=== PATIENT | male | born 1975 | race Caucasian/White ===

== ENCOUNTER → 2020-01-25 15:48 | Outpatient (BNVA) | payer OTHER, SELFPAY | PROVIDERS: Visit Provider Registered Nurse | DX: Z11.59 Encounter for screening for other viral diseases (principal); Z20.828 Contact with and (suspected) exposure to other viral communicable diseases; J06.9 Acute upper respiratory infection, unspecified | CPT/HCPCS: 87635 ==

== ENCOUNTER → 2020-03-24 08:38 | Outpatient (BNVA) | payer OTHER, SELFPAY | PROVIDERS: Visit Provider Registered Nurse | DX: I10 Essential (primary) hypertension (principal); R73.9 Hyperglycemia, unspecified | CPT/HCPCS: 36416; 80053; 80061; 82962; 83036; 85025 ==

== ENCOUNTER → 2020-08-03 14:52 | Outpatient (BNVA) | payer OTHER, SELFPAY | PROVIDERS: PCP Registered Nurse; Referring Provider Registered Nurse; Visit Provider Orthopaedic Surgery | DX: M25.521 Pain in right elbow (principal) | CPT/HCPCS: 73080 ==

== ENCOUNTER → 2020-12-16 08:55 | Outpatient (BNVA) | payer OTHER, SELFPAY | PROVIDERS: PCP Registered Nurse; Visit Provider Registered Nurse | DX: L08.9 Local infection of the skin and subcutaneous tissue, unspecified (principal); S91.114D Laceration without foreign body of right lesser toe(s) without damage to nail, subsequent encounter; Z23 Encounter for immunization; I10 Essential (primary) hypertension | CPT/HCPCS: 80053; 85025 ==

== ENCOUNTER → 2021-05-09 14:27 | Outpatient (BNVA) | payer OTHER, SELFPAY | PROVIDERS: PCP Registered Nurse; Visit Provider Registered Nurse | DX: R10.9 Unspecified abdominal pain (principal); R11.2 Nausea with vomiting, unspecified; R19.7 Diarrhea, unspecified | CPT/HCPCS: 85025; 86140 ==

== ENCOUNTER 2021-05-10 12:55 | Outpatient (CLI) | payer OTHER, SELFPAY ==
--- NOTE | 2021-05-10 13:30 | CT_ITS ---
WS: [id number] CT ABDOMEN WITHOUT CONTRAST HISTORY: K57.92 - Diverticulitis of intestine, part unspecified, w... Contiguous single phase 5 mm axial imaging performed to the abdomen. Oral contrast has been provided. Coronal and sagittal reformats are submitted. All CT scans at [facility] use at least one of these dose optimization techniques: automated exposure control; mA and/or kV adjustment per patient size (includes targeted exams where dose is matched to clinical indication); or iterative reconstruct ion. CONTRAST: None DLP: 915.55 mGy.cm COMPARISON: None available. Lower thorax: Benign granuloma RIGHT lower lobe. Heart size is normal. Small hiatal hernia. Liver: Liver is top normal size. Diffuse attenuation throughout the liver from chronic steatosis. The re is an area of increased density adjacent to the gallbladder fossa which may be sparing. No bile du ct dilatation. Gallbladder: Normal. Pancreas: Normal. Spleen: Normal. Adrenals: Normal. Right kidney: Normal. Left kidney: Normal. Aorta: Normal. GI tract: As visualized the GI tract is negative through the abdomen. The pelvis was not included on this examination as only the abdomen was ordered. The sigmoid colon is not included. In the visualize d colon no significant diverticular disease is identified. The small bowel loops visualized are demarcus l caliber. Stomach is nondistended. No adenopathy or free fluid. Abdominal wall: Small fat-containing umbilical hernia. Visualized osseous structures: Unremarkable. CT/CT abdomen wo con [id number] IMPRESSION: 1. No acute abdomen findings. This examination only included the abdomen as or dered. 2. Hepatic steatosis with focal area of sparing adjacent to the gallbladder. 3. Small fat-containing umbilical hernia. 4. The visualized GI tract in the abdomen is negative.
== END 2021-05-10 12:56 | disposition home or self-care (01) ==
LOC: RAD 12:57
PROVIDERS: PCP Registered Nurse; Visit Provider Registered Nurse
DX: K57.92 Diverticulitis of intestine, part unspecified, without perforation or abscess without bleeding (principal); K76.0 Fatty (change of) liver, not elsewhere classified; K42.9 Umbilical hernia without obstruction or gangrene
CPT/HCPCS: 74150

== ENCOUNTER → 2021-09-29 08:21 | Outpatient (BNVA) | payer OTHER, SELFPAY | PROVIDERS: PCP Registered Nurse; Visit Provider Registered Nurse | DX: N61.1 Abscess of the breast and nipple (principal); R53.83 Other fatigue | CPT/HCPCS: 84402; 84403 ==

== ENCOUNTER 2021-10-13 10:50 | Outpatient (CLI) | payer OTHER, SELFPAY ==
--- NOTE | 2021-10-13 10:58 | US_ITS ---
WS: [id number] ULTRASOUND LEFT BREAST HISTORY: N61.1 - Abscess of the breast and nipple COMPARISON: None available. TECHNIQUE: 2-D and Doppler. Hypoechoic mass just posterior to the nipple with increased vascularity and then direct extensions. M ass measures 2.2 x 1.3 cm. No abscess or focal collection. US/US breast LT limited* [id number] IMPRESSION: BI-RADS: 2-Benign FOLLOW-UP: See Report Mass posterior to the LEFT nipple is most consistent and typical for gynecomast ia. Clinically if there is additional concern surgical evaluation or biopsy can be performed.
== END 2021-10-13 10:51 | disposition home or self-care (01) ==
PROVIDERS: PCP Registered Nurse; Visit Provider Registered Nurse
DX: N61.1 Abscess of the breast and nipple (principal)
CPT/HCPCS: 76642

== ENCOUNTER 2022-03-06 11:29 | Outpatient (CLI) | payer OTHER, SELFPAY ==
--- NOTE | 2022-03-06 11:37 | XR_ITS ---
WS: [id number] Exam: XR lumbar spine 2-3V* [id number] Date/Time of Exam: 03/06/2022 11:43 AM Reason For Exam: M51.36 - Other intervertebral disc degeneration, lumbar r... No fracture or dislocation. Degenerative disc narrowing at L5-S1. Facet DJD at L4-5 and L5-S1. Mild s pondylosis. XR/XR lumbar spine 2-3V* [id number] IMPRESSION: 1. No fracture or malalignment. 2. Degenerative disc changes at L5-S1.
== END 2022-03-06 11:30 | disposition home or self-care (01) ==
LOC: RAD 11:32
PROVIDERS: PCP Registered Nurse; Visit Provider Registered Nurse
DX: M51.36 Other intervertebral disc degeneration, lumbar region (principal)
CPT/HCPCS: 72100

== ENCOUNTER 2022-03-14 13:19 | Outpatient (CLI) | payer OTHER, SELFPAY ==
--- NOTE | 2022-03-14 14:00 | MR_ITS ---
WS: [id number] MRI LUMBAR SPINE NONCONTRAST TECHNIQUE: Sagittal T1, T2 and STIR imaging. Axial T1 and T2 imaging. CLINICAL INFORMATION: M51.36 - Other intervertebral disc degeneration, lumbar r... COMPARISON: None. FINDINGS: Mild lumbar curve. No acute compression. No high-grade central canal stenosis. Tapering of the thecal sac at the L4-L5 level extending distally. Prominent epidural fat in the distal spinal canal. L1-L2: Mild facet arthropathy. Spinal canal and foramen are patent. L2-L3: No significant disc bulging. Mild facet arthropathy. Spinal canal and foramen are patent. L3-L4: Mild annular bulging. Mild facet arthropathy. Spinal canal and foramen are patent. L4-L5: Mild disc bulging with a tiny shallow central protrusion. Slight effacement of the ventral the carole sac. Narrowing of the subarticular recess bilaterally. Mild facet arthropathy. No significant for aminal narrowing. L5-S1: Mild disc bulging with slight effacement of the ventral thecal sac. Mild facet arthropathy. Sp inal canal and foramen are patent. Visualized pelvic bony structures: Normal. Paravertebral soft tissues: Normal. MR/MR lumbar spine wo con* [id number] IMPRESSION: 1. Mild lumbar curve. No acute compression. 2. Tapering of the thecal sac at the L4-L5 level extending distally with promi nent circumferential epidural fat narrowing the thecal sac. 3. Mild annular bulging L4-L5 with a tiny shallow central protrusion and sligh t contact of the traversing L5 nerve roots. 4. Mild facet arthropathy L3-L4 and L4-L5. 5. No other acute findings.
== END 2022-03-14 13:20 | disposition home or self-care (01) ==
PROVIDERS: PCP Registered Nurse; Visit Provider Registered Nurse
DX: M51.36 Other intervertebral disc degeneration, lumbar region (principal); M51.26 Other intervertebral disc displacement, lumbar region; M47.816 Spondylosis without myelopathy or radiculopathy, lumbar region
CPT/HCPCS: 72148

== ENCOUNTER 2023-02-11 20:18 | Inpatient (IN) | payer MEDICAID, SELFPAY ==
[2023-02-11] VITALS (10 sets, daily range): BP systolic 117–133; BP diastolic 47–76; PULSE 96–105; RESP 12–25; TEMP 36.7; O2SAT 75–98; BMI 31.4
--- NOTE | 2023-02-11 20:27 | XRR_ITS ---
PROCEDURE INFORMATION: Exam: XR Left Hip Exam date and time: 02/11/2023 8:36 PM Age: 47 years old Clinical indication: Injury or trauma; Fall TECHNIQUE: Imaging protocol: Radiologic exam of the left hip. Views: 2 or 3 views hip with pelvis when performed. COMPARISON: No relevant prior studies available. FINDINGS: Bones/joints: Nondisplaced subcapital fracture of the left femoral neck. There is possible extension of the fracture distally into the mid left femoral neck. Moderate osteophytes at the right and left acetabula. No dislocation. Normal bone mineralization. Soft tissues: No soft tissue swelling. No radiopaque foreign body. Vasculature: Multiple calcifications in the pelvis most likely representing calcified phleboliths. XR/XR hip LT 2-3V wo/w pel* [id number] IMPRESSION: 1. Nondisplaced subcapital fracture of the left femoral neck. There is possible extension of the fracture distally into the mid left femoral neck. 2. Incidental/nonacute findings are listed in the report.
--- NOTE | 2023-02-11 20:29 | ED_ITS ---
HPI - Fall General: Chief Complaint: Extremity Injury, Lower Stated Complaint: FALL Time Seen by Provider: 02/11/23 20:23 Source: patient Mode of arrival: ambulatory Limitations: no limitations History of Present Illness: 47-year-old male states he is got a history of low back pain he states had some increased back pain over the last 4 to 5 days but he states he had 2 falls yesterday and then had another fall today where he landed on his hip he states that when he fell today he has had much worsening hip pain. States he did ambulate for a little bit after he fell but then its worsened. Rates pain a 7 out of 10 denies any other injuries Associated symptoms-after fall: Denies abdominal pain, chest pain, headache(s) or neck pain Review of Systems Const: Denies: fever(s), chills, body aches or change in appetite ENMT: Denies: throat pain or dental pain Card: Denies: chest pain Resp: Denies: dyspnea GI: Denies: abdominal pain, nausea, vomiting or diarrhea Musc: Reports: extremity pain; Denies: neck pain or back pain Skin/Breast: Denies: rash Neuro: Denies: headache(s) PFSH ED PFSH: Medical History Depression Family History Grandfather CAD (coronary artery disease) Father Cancer Lung disease copd Sister Lung disease asthma Denies family history of Diabetes Chronic kidney disease (CKD) Hypertension Stroke Social History Smoking and tobacco/nicotine status: current some day tobacco/nicotine user Alcohol intake: current Alcohol intake frequency: few times a month Alcohol type: beer Substance/Drug Use: never Lives independently: No Household members: spouse Marital status: Current occupational status: employed Sexually active: Yes Do you think of yourself as: Straight/Heterosexual Current gender identity: Male Physical Exam Const: COMMON NORMALS: no acute distress, patient oriented x3 and healthy appearing HENMT: COMMON NORMALS: normocephalic and atraumatic HEAD & SCALP: normocephalic and atraumatic Neck/C-Spine: COMMON NORMALS: full ROM and supple Chest: COMMONS NORMALS: normal inspection of the chest Resp: COMMON NORMALS: normal respiratory effort Cardio: COMMON NORMALS: regular rate, regular rhythm and No murmurs present (Cardio) RATE: regular rate RHYTHM: regular rhythm Extremity: COMMON NORMALS: normal to inspection NARRATIVE EXTREMITY EXAM: Tenderness to left hip has some pain with range of motion Neuro: COMMON NORMALS: patient oriented x3, moves all extremities and no focal motor deficits Psych: COMMON NORMALS: mental status grossly normal, Normal thought process p resent and cooperative THOUGHT PROCESS: Normal thought process present Skin: COMMON NORMALS: no rashes or lesions noted and no wounds GENERAL SKIN EXAM: no rashes or lesions noted Course Vital Signs: Vital signs: Vital Signs Temperature 98.0 F 02/11/23 20:32 Pulse Rate 103 H 02/11/23 21:35 Respiratory Rate 25 H 02/11/23 21:35 Blood Pressure 133/47 02/11/23 21:35 Pulse Oximetry 96 02/11/23 21:35 Oxygen Delivery Me thod Room Air 02/11/23 21:35 MDM - Fall Medical Decision Making Patient presents with left hip fracture after a fall I spoke to hospitalist along orthopedics and will admit this time Medical Records I reviewed the patient's medical records. Lab Data I reviewed the patient's lab results. 02/11/23 21:35 02/11/23 21:35 Radiology Impressions Hip/Pelvis X-Ray 02/11/23 20:27 IMPRESSION: 1. Nondisplaced subcapital fracture of the left femoral neck. There is possible extension of the fracture distally into the mid left femoral neck. 2. Incidental/nonacute findings are listed in the report. Lumbar Spine X-Ray 02/11/23 20:31 IMPRESSION: 1. Image artifact on the lateral images limits evaluation. There is otherwise no evidence for acute fracture in the lumbar spine. No acute fracture. CT scan of the lumbar spine would be recommended if clinical concern for fracture persists. 2. Stable multilevel degenerative changes of varying severity in the visualized spine. 3. Incidental/nonacute findings are listed in the report. Hip CT 02/11/23 20:47 IMPRESSION: 1. There is a nondisplaced subcapital fracture of the left femoral neck at the superior femoral head/neck junction (series 6, images 76-83). 2. Small/moderate left hip joint effusion. 3. Diffuse, mild bladder wall thickening . In the correct clinical setting, this may suggest cystitis. Recommend correlation with laboratory findings. Alternatively, this may be secondary to chronic outlet obstruction. 4. Incidental/nonacute findings are listed in the report. All radiology interpretation(s) finalized by discharge Discharge Plan Discharge Patient Disposition: Admitted As Inpatient Clinical Impression: Fracture of hip Qualifiers: Encounter type: initial encounter Fracture type: closed Laterality: left Qualified Code(s): S72.002A - Fracture of unspecified part of neck of left femur, initial encounter for closed fracture Condition: Stable Coding Level of Care Code ED Proof Plate Maker for Maryam Emmanuel
--- NOTE | 2023-02-11 20:31 | XRR_ITS ---
PROCEDURE INFORMATION: Exam: XR Lumbosacral Spine Exam date and time: 02/11/2023 8:45 PM Age: 47 years old Clinical indication: Injury or trauma; Fall; Blunt trauma (contusions or hematomas) TECHNIQUE: Imaging protocol: Radiologic exam of the lumbosacral spine. Views: 2 or 3 views. COMPARISON: MR lumbar spine wo con* [id number] 03/14/2022 2:06 PM FINDINGS: Bones/joints: Vertebral body height is maintained. No subluxation. Normal bone mineralization. Stable multilevel degenerative changes of varying severity in the visualized spine. The right and left sacroiliac joints are unremarkable. Image artifact on the lateral images limits evaluation. There is otherwise no evidence for acute fracture in the lumbar spine. Soft tissues: No paravertebral soft tissue abnormality. No radiopaque foreign body. XR/XR lumbar spine 2-3V* [id number] IMPRESSION: 1. Image artifact on the lateral images limits evaluation. There is otherwise no evidence for acute fracture in the lumbar spine. No acute fracture. CT scan of the lumbar spine would be recommended if clinical concern for fracture persists. 2. Stable multilevel degenerative changes of varying severity in the visualized spine. 3. Incidental/nonacute findings are listed in the report.
--- NOTE | 2023-02-11 20:47 | CTR_ITS ---
PROCEDURE INFORMATION: Exam: CT Left Lower Extremity Without Contrast, Hip Exam date and time: 02/11/2023 9:01 PM Age: 47 years old Clinical indication: Injury or trauma; Fall; Blunt trauma; Hip; Left TECHNIQUE: Imaging protocol: CT of the left lower extremity without contrast was performed. Exam focused on the hip. Sagittal and coronal reformatted images were created and reviewed. Radiation optimization: All CT scans at this facility use at least one of these dose optimization techniques: automated exposure control; mA and/or kV adjustment per patient size (includes targeted exams where dose is matched to clinical indication); or iterative reconstruction. REPORTING DATA: Count of CT and Cardiac NM exams in prior 12 months: This patient has received 0 known CTs and 0 known cardiac nuclear medicine studies in the 12 months prior to the current study. COMPARISON: CR (PELVIS, ) 02/11/2023 8:36 PM RADIATION DOSE METRICS: Total DLP (mGy-cm): 841.75 FINDINGS: Bones/joints: Moderate osteophytes at the left acetabulum. No dislocation. Normal bone mineralization. There is a nondisplaced subcapital fracture of the left femoral neck at the superior femoral head/neck junction (series 6, images 76-83). There are cystic changes along the superior proximal and mid left femoral neck. Small/moderate left hip joint effusion. Soft tissues: No soft tissue swelling. No radiopaque foreign body. No radiopaque foreign body. Urinary bladder: Diffuse, mild bladder wall thickening . Reproductive: Small bilateral hydroceles. Bilateral testes are unremarkable as visualized. The prostate gland is unremarkable. CT/CT hip LT wo con* [id number] IMPRESSION: 1. There is a nondisplaced subcapital fracture of the left femoral neck at the superior femoral head/neck junction (series 6, images 76-83). 2. Small/moderate left hip joint effusion. 3. Diffuse, mild bladder wall thickening . In the correct clinical setting, this may suggest cystitis. Recommend correlation with laboratory findings. Alternatively, this may be secondary to chronic outlet obstruction. 4. Incidental/nonacute findings are listed in the report.
--- NOTE | 2023-02-11 21:19 | XRR_ITS ---
PROCEDURE INFORMATION: Exam: XR Chest Exam date and time: 02/11/2023 9:23 PM Age: 47 years old Clinical indication: Injury or trauma; Fall; Blunt trauma (contusions or hematomas); Additional info: Cp TECHNIQUE: Imaging protocol: Radiologic exam of the chest. Views: 1 view. COMPARISON: CT angio chest PE protcl [id number] 02/21/2018 10:56 AM FINDINGS: Lungs: Unremarkable. No consolidation. Pleural spaces: Unremarkable. No pleural effusion. No pneumothorax. Heart/Mediastinum: Unremarkable. No cardiomegaly. Bones/joints: Old left rib fractures. No acute fracture. XR/XR chest 1V portable [id number] IMPRESSION: No acute findings.
[2023-02-11] MEDS: HYDROmorphone 1 mg/mL INJ 1 mL IVP ×2 (21:33→22:23)
--- NOTE | 2023-02-11 21:35 | ECG_ITS ---
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 Measurements Intervals [place] Rate: 100 P: 42 OR: 156 QRS: 70 QRSD: 79 T: 53 QT: 327 QTc: 423 Interpretive Statements SINUS TACHYCARDIA ABNORMAL RHYTHM ECG Compared to ECG 02/21/2018 10:02:16 Heart rate has increased Electronically Signed On 02-12-2023 16:58:06 AUDIOLOGY ASSISTANT by Denise Hendrix M.D. [email or web address] specialty [email or web address] of [email or web address] [email or web address] [id number]
[2023-02-11 21:48] LABS: Basophils # 0.1 10^3/uL (0.0-0.1); Basophils % 0.7 %; Eosinophils # 0.1 10^3/uL (0.0-0.8); Hematocrit 36.6 % (37-53); Lymphocytes # 1.2 10^3/uL (0.8-4.8); Mean Corpuscular HGB Conc 32.5 g/dL (30-55); Mean Corpuscular Hemoglobin 32.8 pg (27-33); Mean Corpuscular Volume 100.8 fl (82-101); Mean Platelet Volume 9.4 fL (7.4-10.4); Monocytes # 1.1 10^3/uL (0.2-0.9); Monocytes % 8.8 %; Neutrophils # 9.44 10^3/uL (1.8-7.7); Neutrophils % 78.8 %; Nucleated Red Blood Cells % 0 %; Platelet Count 186 10^3/cmm (157-399); Red Blood Count 3.63 10^6/uL (3.85-5.65); Red Cell Distribution Width 11.9 % (12.1-15.1); White Blood Count 11.97 10^3/uL (3.29-11.43)
[2023-02-11 22:03] LABS: Alanine Aminotransferase 68 U/L (0-41); Alkaline Phosphatase 83 U/L (40-130); Aspartate Amino Transferase 61 U/L (0-40); Blood Urea Nitrogen 17 mg/dL (6-20); Calcium 8.7 mg/dL (8.5-10.5); Carbon Dioxide 22 mmol/L (22-29); Chloride 101 mmol/L (98-107); Globulin 2.7 g/dL (1.3-4.6); Glomerular Filtration Rate 64.6 mL/min (90-130); Glucose 127 mg/dL (65-115); Osmolality Calculated 283 mOsm/kg (285-295); Sodium 135 mmol/L (136-145); Total Bilirubin 0.2 mg/dL (0.15-1.2); Total Protein 6.7 g/dL (6.6-8.7)
[2023-02-11 22:05] LABS: INR 0.99 (0.8-1.2)
[2023-02-11 22:21] LABS: Anion Gap 16.5 (5-19); Potassium 4.5 mmol/L (3.5-5.1)
--- NOTE | 2023-02-11 22:26 | PC.NURSE ---
Addendum entered by Leyda Pan RN 02/11/23 22:28: pt currently 96% on 2L NC, Dr. Jewell notified. Original Note: pts oxygen saturation at 78%-80%, applied 2L NC. per pt and pts family pts oxygen sat drops when he sleeps. denies sleep apnea
--- NOTE | 2023-02-11 22:32 | PC.NURSE ---
informed Dr. Jewell of pts oxygen sat of 75%-77% on 3L NC. per Dr. Jewell to call respiratory. this nurse informed respiratory of pt status and for Dr. Jewell's request for biPAP or cPAP
--- NOTE | 2023-02-11 22:37 | PC.NURSE ---
pt oxygen saturation increases when awake, pt currently 96% on 3L NC, awake and alert at this time.
[2023-02-12] VITALS (28 sets, daily range): BP systolic 104–144; BP diastolic 64–99; PULSE 72–99; RESP 10–22; TEMP 36.1–37.2; O2SAT 90–98; BMI 33.7
--- NOTE | 2023-02-12 | XR_ITS ---
WS: [id number] Left hip, C-arm fluoroscopy views, 02/12/2023 Clinical Data: [facility] Comparison: Pelvis and left hip, 02/11/2023 Findings: There are are 3 orthopedic pins reducing an undisplaced left hip subcapital fracture. Impression: Internal fixation of left hip subcapital fracture
--- NOTE | 2023-02-12 00:53 | PM.HP ---
Providers/Chief Complaint Admitting Physician: Altagracia Oscar MD Primary Care Provider: KAREN Sloan Chief Complaint: FALL History of Present Illness Bernardo Lyon is a 47 year old male who presents to the hospital after sustaining multiple falls at home. Patient has had 3 falls in the last 24 hours in the ER he has been diagnosed with left femoral neck fracture Patient is stating thathe has been suffering with sciatica which has been bothering him, he fell yesterday after stepping on a toy, second time his daughter who is 4 years old was having seizure he sprinted towards his daughter but stepped on toy again and fell on the floor, today slipped again after stepping on smudged carrots on the floor. Denies syncope, sezure or chest pain, no sign sof uti Review of Systems Const: Denies: fever(s) Eyes: Denies: change in vision ENMT: Denies: throat pain Card: Denies: chest pain Resp: Denies: dyspnea GI: Denies: abdominal pain : Denies: flank pain Musc: Reports: joint pain; Denies: neck pain Medications/Allergies Home Medications Medication Instructions Recorded Confirmed Last Taken Type albuterol sulfate 90 mcg/actuation 2 puff inhalation Q6H PRN 01/25/20 11/26/22 Unknown Rx aerosol inhaler (ProAir HFA) bronchospasm #6.7 grams dicyclomine 10 mg capsule See Rx Instructions .Route 09/26/21 11/26/22 Unknown Rx .COMPLEX #60 caps amlodipine 2.5 mg tablet 2.5 mg PO DAILY 90 days #90 tabs 11/26/22 11/26/22 Unknown Rx fluoxetine 20 mg capsule 20 mg PO DAILY 90 days #90 caps 11/26/22 11/26/22 Unknown Rx losartan 100 mg tablet 100 mg PO DAILY 90 days #90 tabs 11/26/22 11/26/22 Unknown Rx Allergies Allergy/AdvReac Type Severity Reaction Status Date / Time codeine Allergy Severe shortness Verified 02/11/23 20:39 of breath avocado Allergy Unknown Verified 02/11/23 20:39 banana Allergy Unknown Verified 02/11/23 20:39 PFSH Acute PFSH: Medical History Depression HTN (hypertension) Family History Grandfather CAD (coronary artery disease) Father Cancer Lung disease copd Sister Lung disease asthma Denies family history of Diabetes Chronic kidney disease (CKD) Hypertension Stroke Social History Smoking and tobacco/nicotine status: current some day tobacco/nicotine user Alcohol intake: current Alcohol intake frequency: few times a month Alcohol type: beer Substance/Drug Use: never Lives independently: No Household members: spouse Marital status: Current occupational status: employed Sexually active: Yes Do you think of yourself as: Straight/Heterosexual Current gender identity: Male Vitals/I&O/Wt Last Vital Signs Temp 98.0 F 02/11/23 20:32 Pulse 99 02/12/23 00:23 Resp 20 H 02/12/23 00:23 BP 104/64 02/12/23 00:23 Pulse Ox 94 02/12/23 00:23 O2 Del Method Nasal Cannula 02/11/23 22:36 O2 Flow Rate 4 02/11/23 22:49 Weight last 48 hrs Weight 102.058 kg Physical Exam Narrative: Pleasant and cooperative Blood pressure stable Abdomen soft Pleasant and cooperative GCS 15 Anxious appearing S1, S2 Nonfocal neuro exam Data 02/11/23 21:35 02/11/23 21:35 A&P Assessment and plan (1) Fracture of hip: Qualifiers: Encounter type: initial encounter Fracture type: closed Laterality: left Qualified Code(s): S72.002A - Fracture of unspecified part of neck of left femur, initial encounter for closed fracture (2) Depression: Qualifiers: Depression Type: major depressive disorder Major depression recurrence: recurrent Active/Remission status: currently active Major depression episode severity: moderate Qualified Code(s): F33.1 - Major depressive disorder, recurrent, moderate Plan Left hip fracture N.p.o. Dr. Murdock consulted Opioids along bowel regimen Continue normal saline SCDs for DVT prophylaxis Full code Check B12 and TSH Physical therapy after intervention Hold amlodipine continue IV fluids blood pressure stable Cystitis give ceftriaxone no sign of sepsis Attestations Medical Necessity Statement*: More than 2 midnights anticipated for management of hip fracture Diagnoses Fracture of hip S72.002A Encounter type: initial encounter Fracture type: closed Laterality: left Depression F33.1 Depression Type: major depressive disorder Major depression recurrence: recurrent Active/Remission status: currently active Major depression episode severity: moderate
[2023-02-12] MEDS: HYDROmorphone 1 mg/mL INJ 1 mL IVP (01:06)
[2023-02-12 01:55] LABS: Basophils # 0.1 10^3/uL (0.0-0.1); Basophils % 0.7 %; Eosinophils # 0.1 10^3/uL (0.0-0.8); Eosinophils % 0.9 %; Hematocrit 36.6 % (37-53); Lymphocytes # 1.9 10^3/uL (0.8-4.8); Lymphocytes % 16.8 %; Mean Corpuscular HGB Conc 32.5 g/dL (30-55); Mean Corpuscular Volume 101.4 fl (82-101); Mean Platelet Volume 9.7 fL (7.4-10.4); Monocytes # 1.1 10^3/uL (0.2-0.9); Monocytes % 9.2 %; Neutrophils # 8.19 10^3/uL (1.8-7.7); Neutrophils % 71.8 %; Nucleated Red Blood Cells % 0 %; Platelet Count 203 10^3/cmm (157-399); Red Blood Count 3.61 10^6/uL (3.85-5.65); Red Cell Distribution Width 11.9 % (12.1-15.1)
[2023-02-12 01:56] LABS: Add Urine Microscopic? NO; Charge for UA Resulting for Rev
[2023-02-12 02:05] LABS: Bilirubin Urine Neg (Negative); Blood Urine Neg (Negative); Glucose Urine UA Norm (Normal); Ketones Urine Negative (Negative); Leukocyte Esterase Urine Negative (Negative); Nitrate Urine Negative (Negative); Protein Urine Neg (Negative); Specific Gravity, Urine 1.005 (1.005-1.030); Urine Appearance Clear (CLEAR); Urine Color Yellow (Yellow); Urobilinogen Urine Neg (Negative); pH Urine 7 (5-7)
[2023-02-12] MEDS: sodium chloride 0.9% 1,000 ML 75 ML IV (02:05)
[2023-02-12 02:12] LABS: Anion Gap 16.3 (5-19); Blood Urea Nitrogen 16 mg/dL (6-20); C Reactive Protein 3.7 mg/L (0.0-4.9); Calcium 8.8 mg/dL (8.5-10.5); Carbon Dioxide 19 mmol/L (22-29); Chloride 101 mmol/L (98-107); Glomerular Filtration Rate 71.4 mL/min (90-130); Glucose 117 mg/dL (65-115); Magnesium 1.9 mg/dL (1.7-2.3); Osmolality Calculated 276 mOsm/kg (285-295); Potassium 4.3 mmol/L (3.5-5.1); Sodium 132 mmol/L (136-145)
[2023-02-12 02:13] LABS: Alcohol Level 95 mg/dL (0-10)
[2023-02-12 02:27] LABS: Vitamin B12 194 pg/mL (232-1245)
[2023-02-12] MEDS: morphine IR 15 mg Tablet PO (03:56)
[2023-02-12] MEDS: cefTRIAXone 1,000 MG in sodium chloride 0.9% (plus) 50 ML 100 MG IV (08:10)
--- NOTE | 2023-02-12 10:04 | PC.CHAP ---
Pastoral Care Encounter/Spiritual Assessment Type of Contact [] Declined loader malt house visit [] Patient/Family/Request visit [] Outpatient visit [] Follow-up visit [] Physician referral [] Code/Alert [x] Routine visit [] Staff referral [] Actively dying [] Patient sleeping [] Family support [] [] Out of room [] Palliative care [] [] Receiving care in room [] Pre-surgical visit [] Trauma [] Long length of stay [] ICU visit [] Other: Relational/Emotional Strength [x] Patient feels connected with others/family/visitors/staff [] Distress [] Loneliness/isolation [] Abandonment Spirituality of Patient [x] Person of Sima [] Attends Caodaism of their Sima [x] Believes in Prayer [] Reads Bible or Episcopal materials [] There are Spiritual issues to be addressed Taker Off Drying Kiln Interventions [x] Prayer [] Active listening [] Non-anxious presence [x] Spiritual/emotional support [] Crisis/trauma care [] Spiritual counseling [] Bereavement support [] Provided bereavement packet [] Provided Bible/devotional materials [] Provided toy/stuffed animal, coloring book to patient or family member [] Provided Communion [] Anointing/[place] [] Salvation [x] Completed spiritual assessment [] Other: Impact on Illness or Injury [] Angry [] Fearful [] Anxious [] Often cries [] Exhaustion [] Unable to work [] Unable to attend pentecostalism [] Unable to walk/stand [] Unable to read [] Unable to drive [] Unable to eat/drink [] Unable to sleep [] Unable to be with family [] Patient intubated [] Other: Summary Time spent with patient 5 min
--- NOTE | 2023-02-12 11:44 | PM.CONSULT ---
Documented by User: MIGUEL Aleman 02/12/23 12:43 Providers/Reason For Consult Consulting Physician/Specialty*: MIGUEL Aleman/Dr. Jessica Murdock MD Reason for Consult*: Left hip subcapital fracture of the femoral neck, nondisplaced. Attending Physician: Caren Jimenez MD Primary Care Provider: KAREN Sloan History of Present Illness History of Present Illness Bernardo Lyon is a 47 year old male who presents to the hospital after sustaining multiple falls at home. DOI: 02/11/2023. Patient has had 3 falls in the last 24 hours while at home. He presented to the ER last night (02/11/2023) where he was diagnosed with a left femoral neck fracture and referred here. Patient is stating that he has been suffering with sciatica to the LEFT lower extremity which has been bothering him, his first fall occurred late in the evening on 02/10/2023 after stepping on a toy at home, second time his daughter who is 4 years old was having seizure he sprinted towards his daughter but stepped on toy again and fell on the floor. In the afternoon of 02/11/2023 he slipped again after stepping on smudged carrots on the floor. He had been having pain in the left hip since his first fall on the evening of 02/10/2023 but was able to continue ambulating and weight bearing. Patient states after his third and final fall in the evening of the , he squatted down to pick something up while in his shop and felt a painful pop in the hip and was unable to stand back up or put weight on the left lower extremity. Patient states that he hopped on the right leg until he was able to get back to the house. Pertinent past medical history includes: Hypertension which is well-controlled with medication. Irritable bowel syndrome. Depression. Review of Systems Const: Denies: fever(s) Eyes: Denies: change in vision ENMT: Denies: throat pain Card: Denies: chest pain, palpitations, irregular heart rhythm or edema Resp: Denies: dyspnea, productive cough or wheezing GI: Denies: abdominal pain : Denies: flank pain Musc: Reports: back pain, joint pain, joint swelling and limited range of motion; Denies: neck pain, extremity swelling, joint redness or joint warmth Medications/Allergies Home Medications Medication Instructions Recorded Confirmed Last Taken Type amlodipine 2.5 mg tablet 2.5 mg PO DAILY 90 days #90 tabs 11/26/22 02/12/23 02/11/23 Rx losartan 100 mg tablet 100 mg PO DAILY 90 days #90 tabs 11/26/22 02/12/23 02/11/23 Rx Allergies Allergy/AdvReac Type Severity Reaction Status Date / Time codeine Allergy Severe shortness Verified 02/11/23 20:39 of breath avocado Allergy Unknown Verified 02/11/23 20:39 banana Allergy Unknown Verified 02/11/23 20:39 Current Medications Generic Name Dose Route Start Last Admin Trade Name Freq PRN Reason Stop Dose Admin Ceftriaxone Sodium 1,000 mg/ 50 mls @ 100 mls/hr 02/12/23 09:00 02/12/23 09:18 Sodium Chloride IV Not Given DAILY ROSANGELA Protocol Sodium Chloride 1,000 mls @ 75 mls/hr 02/12/23 01:22 02/12/23 02:05 Sodium Chloride 0.9% IV 75 mls/hr .[id number] ROSANGELA Administration Senna/Docusate Sodium 1 tab 02/12/23 09:00 02/12/23 09:18 Sennosides-Docusate Tablet PO Not Given DAILY ROSANGELA PFSH Acute PFSH: Medical History (Updated 02/12/23 @ 12:42 by MIGUEL Aleman) Closed subcapital fracture of femur HTN (hypertension) Depression Family History Grandfather CAD (coronary artery disease) Father Cancer Lung disease copd Sister Lung disease asthma Denies family history of Diabetes Chronic kidney disease (CKD) Hypertension Stroke Social History Smoking and tobacco/nicotine status: current some day tobacco/nicotine user Alcohol intake: current Alcohol intake frequency: few times a month Alcohol type: beer Substance/Drug Use: never Lives independently: No Household members: spouse Marital status: Current occupational status: employed Sexually active: Yes Do you think of yourself as: Straight/Heterosexual Current gender identity: Male Vitals/I&O/Wt Last Vital Signs Temp 98.5 F 02/12/23 08:00 Pulse 80 02/12/23 09:12 Resp 18 02/12/23 09:12 BP 134/87 02/12/23 08:00 Pulse Ox 98 02/12/23 09:12 O2 Del Method Room Air 02/12/23 09:12 O2 Flow Rate 4 02/11/23 22:49 02/11/23 02/12/23 02/12/23 22:59 06:59 14:59 Output Total 1750 / 1750 Balance -1750 / -1750 Weight last 48 hrs Weight 242 lb Weight 225 lb Physical Exam Const: COMMON NORMALS: no acute distress, average body habitus, patient oriented x3, no limitations, alert and well nourished GENERAL APPEARANCE: cooperative; not anxious and not combative ORIENTATION/CONSCIOUSNESS: Yes awake, Yes oriented to person, Yes oriented to place and Yes oriented to time HENMT: COMMON NORMALS: normocephalic and atraumatic HEAD & SCALP: normocephalic and atraumatic Resp: COMMON NORMALS: normal respiratory effort and clear to auscultation bilaterally EFFORT & INSPECTION: Yes able to speak in complete sentences, Yes symmetric chest movement, No abnormal respiratory pattern and No tachypneic AUSCULTATION: clear to auscultation bilaterally, no crackles, no rales and no wheezes Cardio: COMMON NORMALS: regular rate, regular rhythm, S1 normal heart sound present and S2 normal heart sound present JUGULAR VENOUS DISTENTION: no JVD RATE: regular rate RHYTHM: regular rhythm HEART SOUNDS: S1 normal heart sound present, S2 normal heart sound present and no murmurs Extremity: LEFT LOWER EXTREMITY: Yes hip joint (no noted rotation of the hip. No limb length shortening. ) Left hip: Yes inspection (Light bruising to lateral hip. NO skin breakdown. ), Yes palpation (Pain to the left hip/groin. ), Yes ROM (No assessed due to known fracture. ), Yes neurovascular exam (Sensation intact to light touch. 2+ femoral, popliteal, DP and PT pulses. ) and Yes other (rapid capillry refill LE. ) and Yes lower leg (Left calf is soft, nontender. No erythema or swelling.) Neuro: COMMON NORMALS: patient oriented x3 SENSORIUM/ORIENTATION: Yes alert, Yes oriented to person, Yes oriented to place and Yes oriented to time Psych: ATTITUDE: Yes engaged Skin: COMMON NORMALS: no rashes or lesions noted, turgor normal and no jaundice NARRATIVE SKIN EXAM: No skin breakdown from falls. GENERAL SKIN EXAM: no rashes or lesions noted and turgor normal Data 02/12/23 01:42 02/12/23 01:42 Xray Ortho: Radiologist's impression: Bones/joints: Nondisplaced subcapital fracture of the left femoral neck. There is possible extension of the fracture distally into the mid left femoral neck. Moderate osteophytes at the right and left acetabula. No dislocation. Normal bone mineralization. Soft tissues: No soft tissue swelling. No radiopaque foreign body. Vasculature: Multiple calcifications in the pelvis most likely representing calcified phleboliths. XR/XR hip LT 2-3V wo/w pel* [id number] IMPRESSION: 1. Nondisplaced subcapital fracture of the left femoral neck. There is possible extension of the fracture distally into the mid left femoral neck. 2. Incidental/nonacute findings are listed in the report. A&P Assessment and plan (1) Closed subcapital fracture of femur: Qualifiers: Encounter type: initial encounter Laterality: left Qualified Code(s): S72.012A - Unspecified intracapsular fracture of left femur, initial encounter for closed fracture (2) Essential hypertension: (3) Irritable bowel syndrome with diarrhea: (4) Depression: Qualifiers: Active/Remission status: currently active Depression Type: major depressive disorder Major depression episode severity: moderate Major depression recurrence: recurrent Qualified Code(s): F33.1 - Major depressive disorder, recurrent, moderate Plan Bernardo Lyon is a 47 year old male who presents to the hospital after sustaining multiple falls at home over a 24 hour period. Bernardo was admitted to inpatient care and has been stable overnight on the [facility] floor. He does have significant pain in the left hip, which is related to the nondisplaced subcapital fracture of the left femur. With physical examination the patient is medically stable and the left leg is neurovascularly intact. No evidence of limb length discrepancies or rotational deformity. X-rays from the emergency department were discussed with the patient and his at bedside. Due to findings of nondisplaced subcapital fracture of the left femur, it is recommended that we proceed with surgical intervention for stabilization of the fracture site. We will plan to proceed with left hip open reduction internal fixation with cannulated screws today, February 12, 2023. Risks versus benefits of the surgery were discussed at length with the patient and his . Risks includes, but are not limited to wound healing complications, blood/nerve or vessel or tendon injury, failure to relieve all pain and infection. Patient verbalized understanding and would like to proceed with surgical intervention as discussed. Patient has been n.p.o. since midnight. We will plan to proceed with surgical intervention and patient will then be transferred back to the [facility] floor postoperatively. We will plan to round on patient postoperatively. Patient will need to be seen in the clinic for postoperative evaluation upon discharge. Patient and his verbalized understanding and agreement with this plan of care. Consult Attestations Medical Necessity Statement: Patient has been admitted to inpatient status due to left hip nondisplaced subcapital fracture of the femoral neck. Patient will require surgical intervention. Expect care to cross 2 midnights due to hip fracture. Coding Level of Care Code Acute Code for [facility] Diagnoses Closed subcapital fracture of left femur, initial encounter S72.012A Encounter type: initial encounter Laterality: left Essential hypertension I10 Irritable bowel syndrome with diarrhea K58.0 Moderate episode of recurrent major depressive disorder F33.1 Active/Remission status: currently active Depression Type: major depressive disorder Major depression episode severity: moderate Major depression recurrence: recurrent Documented by User: Jessica Murdock MD 02/12/23 12:59 Medications/Allergies Home Medications Medication Instructions Recorded Confirmed Last Taken Type amlodipine 2.5 mg tablet 2.5 mg PO DAILY 90 days #90 tabs 11/26/22 02/12/23 02/11/23 Rx losartan 100 mg tablet 100 mg PO DAILY 90 days #90 tabs 11/26/22 02/12/23 02/11/23 Rx Allergies Allergy/AdvReac Type Severity Reaction Status Date / Time codeine Allergy Severe shortness Verified 02/11/23 20:39 of breath avocado Allergy Unknown Verified 02/11/23 20:39 banana Allergy Unknown Verified 02/11/23 20:39 PFSH Acute PFSH: Medical History (Updated 02/12/23 @ 12:42 by MIGUEL Aleman) Closed subcapital fracture of femur HTN (hypertension) Depression Family History Grandfather CAD (coronary artery disease) Father Cancer Lung disease copd Sister Lung disease asthma Denies family history of Diabetes Chronic kidney disease (CKD) Hypertension Stroke Social History Smoking and tobacco/nicotine status: current some day tobacco/nicotine user Alcohol intake: current Alcohol intake frequency: few times a month Alcohol type: beer Substance/Drug Use: never Lives independently: No Household members: spouse Marital status: Current occupational status: employed Sexually active: Yes Do you think of yourself as: Straight/Heterosexual Current gender identity: Male Data 02/12/23 01:42 02/12/23 01:42 Xray Ortho: My impression: Nondisplaced left subcapital hip fracture best seen on AP pelvis imaging and CT scan. A&P Assessment and plan (1) Closed subcapital fracture of femur: Bernardo Lyon is a 47 year old male who presents to the hospital after sustaining multiple falls at home over a 24 hour period. Bernardo was admitted to inpatient care and has been stable overnight on the [facility] floor. He does have significant pain in the left hip, which is related to the nondisplaced subcapital fracture of the left femur. With physical examination the patient is medically stable and the left leg is neurovascularly intact. No evidence of limb length discrepancies or rotational deformity. X-rays from the emergency department were discussed with the patient and his at bedside. Due to findings of nondisplaced subcapital fracture of the left femur, it is recommended that we proceed with surgical intervention for stabilization of the fracture site. We will plan to proceed with left hip open reduction internal fixation with cannulated screws today, February 12, 2023. Risks versus benefits of the surgery were discussed at length with the patient and his . Risks includes, but are not limited to wound healing complications, blood/nerve or vessel or tendon injury, failure to relieve all pain and infection. Patient verbalized understanding and would like to proceed with surgical intervention as discussed. Patient has been n.p.o. since midnight. We will plan to proceed with surgical intervention and patient will then be transferred back to the [facility] floor postoperatively. We will plan to round on patient postoperatively. Patient will need to be seen in the clinic for postoperative evaluation upon discharge. Patient and his verbalized understanding and agreement with this plan of care. Qualifiers: Encounter type: initial encounter Laterality: left Qualified Code(s): S72.012A - Unspecified intracapsular fracture of left femur, initial encounter for closed fracture (2) Essential hypertension: (3) Irritable bowel syndrome with diarrhea: (4) Depression: Qualifiers: Active/Remission status: currently active Depression Type: major depressive disorder Major depression episode severity: moderate Major depression recurrence: recurrent Qualified Code(s): F33.1 - Major depressive disorder, recurrent, moderate Coding Level of Care Code Acute Code for [facility] Diagnoses Closed subcapital fracture of left femur, initial encounter S72.012A Encounter type: initial encounter Laterality: left Essential hypertension I10 Irritable bowel syndrome with diarrhea K58.0 Moderate episode of recurrent major depressive disorder F33.1 Active/Remission status: currently active Depression Type: major depressive disorder Major depression episode severity: moderate Major depression recurrence: recurrent
[2023-02-12] MEDS: HYDROmorphone 1 mg/mL INJ 1 mL 0.2 MG IVP (12:10)
--- NOTE | 2023-02-12 14:19 | PM.MISC ---
Miscellaneous Note Purpose of Documentation: Overnight labs and H&P reviewed. Patient awaiting surgical intervention this afternoon. Pain is currently controlled. No acute interim events.
--- NOTE | 2023-02-12 14:38 | ANES.PREANE2 ---
Pre-Anesthetic Assessment Height/Weight: Height 1.8 m Weight 109.769 kg Temp Pulse Resp BP Pulse Ox O2 Del Method O2 Flow Rate 97.9 F 81 18 125/81 95 Room Air 4 02/12/23 11:56 02/12/23 11:56 02/12/23 12:10 02/12/23 11:56 02/12/23 11:56 02/12/23 11:56 02/11/23 22:49 Operation Date: 02/12/23 15:45 Proposed Procedures p Hip Screw(Left) - Jessica Murdock MD Familial anesthetic complications: None Was Beta Jamal taken within 24 hours: N/A Was Clonidine taken within 24 hours: N/A Last intake: Intake Last Liquid Date 02/11/23 Last Liquid Time 22:00 Last Solid Date 02/11/23 Last Solid Time 11:00 Social No alcohol and No tobacco Exam alert, oriented x 3, clear to auscultation bilaterally and regular rate & rhythm Airway Mallampati: Class III Dentition: full Pulmonary chronic cough (since childhood) - postnasal drip CV/HEM Hypertension Anesthetic Plan ASA status: 2 Anesthesia: General Risk of > 500 ml blood loss (7ml/kg in children): No Medications/Allergies Home Medications Medication Instructions Recorded Confirmed Last Taken Type amlodipine 2.5 mg tablet 2.5 mg PO DAILY 90 days #90 tabs 11/26/22 02/12/23 02/11/23 Rx losartan 100 mg tablet 100 mg PO DAILY 90 days #90 tabs 11/26/22 02/12/23 02/11/23 Rx Allergies Allergy/AdvReac Type Severity Reaction Status Date / Time codeine Allergy Severe shortness Verified 02/11/23 20:39 of breath avocado Allergy Unknown Verified 02/11/23 20:39 banana Allergy Unknown Verified 02/11/23 20:39 Current Medications Generic Name Dose Route Start Last Admin Trade Name Freq PRN Reason Stop Dose Admin Hydromorphone HCl 0.2 mg 02/12/23 01:22 02/12/23 12:10 Hydromorphone 1 Mg/Ml Inj 1 Ml IVP 0.2 mg Q4H PRN Administration SEVERE PAIN Ceftriaxone Sodium 1,000 mg/ 50 mls @ 100 mls/hr 02/12/23 09:00 02/12/23 13:35 Sodium Chloride IV Infused DAILY ROSANGELA Infusion Protocol Sodium Chloride 1,000 mls @ 75 mls/hr 02/12/23 01:22 02/12/23 02:05 Sodium Chloride 0.9% IV 75 mls/hr .[id number] ROSANGELA Administration Morphine Sulfate 15 mg 02/12/23 01:22 02/12/23 03:56 Morphine Ir 15 Mg Tablet PO 15 mg Q6H PRN Administration MODERATE PAIN Senna/Docusate Sodium 1 tab 02/12/23 09:00 02/12/23 13:33 Sennosides-Docusate Tablet PO Not Given DAILY ROSANGELA PFSH Anesthesia Medical History (Updated 02/12/23 @ 12:42 by MIGUEL Aleman) Closed subcapital fracture of femur HTN (hypertension) Depression Family History Grandfather CAD (coronary artery disease) Father Cancer Lung disease copd Sister Lung disease asthma Denies family history of Diabetes Chronic kidney disease (CKD) Hypertension Stroke Social History Smoking and tobacco/nicotine status: current some day tobacco/nicotine user Alcohol intake: current Alcohol intake frequency: few times a month Alcohol type: beer Substance/Drug Use: never Lives independently: No Household members: spouse Marital status: Current occupational status: employed Sexually active: Yes Do you think of yourself as: Straight/Heterosexual Current gender identity: Male Data Anesthesia 02/12/23 01:42 02/12/23 01:42 Short CBC 02/11/23 02/12/23 Range/Units 21:35 01:42 WBC 11.97 H 11.40 (3.29-11.43) 10^3/uL Hgb 11.90 11.90 (11.27-16.99) g/dL Hct 36.6 L 36.6 L (37-53) % MCV 100.8 101.4 H (82-101) fl Plt Count 186 203 (157-399) 10^3/cmm Neut % (Auto) 78.8 71.8 % Neut # (Auto) 9.44 H 8.19 H (1.8-7.7) 10^3/uL BMP 02/11/23 02/12/23 21:35 01:42 Sodium 135 L 132 L Potassium 4.5 4.3 Chloride 101 101 Carbon Dioxide 22 19 L BUN 17 16 Creatinine 1.2 1.1 Glucose 127 H 117 H Calcium 8.7 8.8 Liver Function 02/11/23 Range/Units 21:35 Total Bilirubin 0.2 (0.15-1.2) mg/dL AST 61 H (0-40) U/L ALT 68 H (0-41) U/L Alkaline Phosphatase 83 (40-130) U/L Albumin 4.0 (3.5-5.2) g/dL Urine 02/12/23 Range/Units 01:50 Urine Color Yellow (Yellow) Urine Appearance Clear (CLEAR) Urine pH 7 (5-7) Ur Specific [place] 1.005 (1.005-1.030) Urine Protein Neg (Negative) Urine Glucose (UA) Norm (Normal) Urine Ketones Negative (Negative) Urine Nitrate Negative (Negative) Urine Bilirubin Neg (Negative) Ur Leukocyte Esterase Negative (Negative) Coags 02/11/23 02/12/23 21:35 01:42 PT 13.40 INR 0.99 C-Reactive Protein 3.7 Cardiac Studies: No Data to Display
[2023-02-12] MEDS: acetaminophen 1,000 MG/100 ML PIGGYBACK 400 MG IV ×2 (14:47→22:52)
[2023-02-12] MEDS: gabapentin 300 mg Capsule PO (14:47)
[2023-02-12] MEDS: CELEcoxib 200 mg Capsule 400 MG PO (14:47)
[2023-02-12] MEDS: sodium chloride 0.9% 1,000 ML 30 ML IV (14:55)
[2023-02-12] MEDS: fentaNYL 50 mcg/mL INJ 2mL IVP ×3 (15:40→17:56)
[2023-02-12] MEDS: ceFAZolin 2,000 MG in sodium chloride 0.9% (plus) 50 ML 100 MG IV ×2 (15:55→23:37)
[2023-02-12] MEDS: BUPivacaine 0.5% INJ 30 mL 20 ML INJECTION (16:53)
--- NOTE | 2023-02-12 17:05 | PM.OP ---
Operative Report Date of procedure: February 12, 2023 Pre-op diagnosis: Left subcapital hip fracture Post-op diagnosis: Left subcapital hip fracture Post-op findings: Nondisplaced left subcapital hip fracture Procedure done: Open reduction internal fixation left subcapital hip fracture utilizing cannulated screws x 3 Implants: Brant 6.5 cannulated screws x 3 Specimens removed/disposition: None Surgeon: Jessica Murdock MD Econometrician: None Anesthesia: General (Per LMA, ASA 3) Estimated blood loss (mL): 10 IV fluids (mL): 900 Urine output (mL): 0 (No Salazar) Complications: None Condition: stable Disposition: PACU (Then return to floor for postoperative rehabilitation and pain management) Brief History: Bernardo Lyon is a 47 year old male who presented to the hospital after sustaining multiple falls at home. DOI: 02/11/2023. Patient has had 3 falls in the last 24 hours while at home. He presented to the ER last night (02/11/2023) where he was diagnosed with a left femoral neck fracture and referred here for definitive treatment. Patient is stating that he has been suffering with sciatica to the LEFT lower extremity which has been bothering him, his first fall occurred late in the evening on 02/10/2023 after stepping on a toy at home, second time his daughter who is 4 years old was having seizure, and he sprinted towards his daughter, but he stepped on toy again and fell on the floor. In the afternoon of 02/11/2023, he slipped again after stepping on smudged carrots and peas on the floor. He had been having pain in the left hip since his first fall on the evening of 02/10/2023, but he was able to continue ambulating and weight bearing. Patient states after his third and final fall in the evening of the , he squatted down to pick something up while in his shop, and he felt a painful pop in the hip and was unable to stand back up or put weight on the left lower extremity. Patient states that he hopped on the right leg until he was able to get back to the house. He was seen and evaluated here at the hospital. CT scan demonstrated left subcapital hip fracture, and the patient was scheduled for surgical intervention. Intervention included 3 cannulated screws. The surgical procedure was discussed with the patient. Risks and complications were discussed, and consents were signed. Procedure: Patient is brought to the operating theater. After undergoing adequate general anesthesia with LMA, ASA 3, the patient was transferred to the fracture table, positioned on the table and fluoroscopic guidance obtained throughout the surgical procedure. Prior to the commencement of the surgical procedure, a surgical pause was performed. At the time of the surgical pause, we confirmed the site and side of surgery as well as preoperative surgical markings and appropriate and timely administration of IV antibiotics, Ancef 2 g. Availability of equipment was also confirmed. Fluoroscopy was used to confirm the fracture was appropriately reduced in both AP and lateral planes. An incision was then made after anatomic evaluation with fluoroscopy. The plan was that we would be able to place 3 screws in an inverted triangle shape and they would be at the level of the lesser trochanter. The Servando gun was used following determination of appropriate placement of the screws. The distal screw was placed first, and the subsequent 2 screws were placed uneventfully. Initially, there was a guidewire placed into the femoral head. Evaluation was accomplished under fluoroscopic guidance to ensure the pin was in appropriate position. Each pin was then measured and the appropriate length screw was chosen. The screws were placed over each appropriate guidewire, and they were screwed into place under power. This process was evaluated throughout the process with fluoroscopy. Attention was then directed to closure. The hip was copiously irrigated with normal saline with antibiotics. Following this it was dried and closed. Tensor fascia dimitri was closed proximally with 0 Vicryl in an interrupted fashion. Subcutaneous tissues were closed with 2-0 Monocryl, and the skin was closed with a continuous 3-0 Monocryl subcuticular stitch. This was then covered with Dermabond and OpSite. The patient was removed from the fracture table and returned to recovery in satisfactory condition. The patient will be discharged to the floor for postoperative rehabilitation and pain management. There were no specimens obtained. Related Problem List Diagnoses (1) Closed subcapital fracture of femur:
--- NOTE | 2023-02-12 18:02 | PC.NURSE ---
LMA removed post arrival. Immediate pain upon awaking. Repositioned, ice, and medication.
--- NOTE | 2023-02-12 18:10 | ANE.PACU2 ---
Inpatient post-anesthesia follow up: Airway intact: Yes Vital signs: Temperature 97.6 F Pulse Rate 80 Respiratory Rate 16 Blood Pressure 115/66 Pulse Oximetry 96 Oxygen Delivery Me thod Room Air Oxygen Flow Rate 2 Fraction of Inspir ed Oxygen Hydration adequate: Yes Nausea and vomiting: No Pain level: 1 Mental status: Baseline
[2023-02-12] MEDS: HYDROcodone-acetaminophen 5-325 mg Tablet 1 TAB PO (19:47)
[2023-02-12] MEDS: iron polysaccharide complex 150 mg Capsule PO (19:48)
[2023-02-12] MEDS: calcium carbonate 500 mg Chew Tablet 1000 MG PO (19:48)
[2023-02-12] MEDS: sennosides-docusate Tablet 2 TAB PO (19:48)
[2023-02-12] MEDS: mupirocin oint 22 gm 1 APPLIC NASAL (19:49)
[2023-02-12] MEDS: chlorhexidine gluconate 0.12% Btl 473 mL 30 ML MUCOUS MEM (19:49)
[2023-02-12] MEDS: cyclobenzaprine 10 mg Tablet 5 MG PO (23:36)
[2023-02-13] VITALS (7 sets, daily range): BP systolic 114–146; BP diastolic 66–89; PULSE 80–96; RESP 16–20; TEMP 36.4–36.8; O2SAT 96–97; BMI 33.7
[2023-02-13] MEDS: HYDROcodone-acetaminophen 5-325 mg Tablet 1 TAB PO ×4 (00:17→12:54)
[2023-02-13 05:41] LABS: Basophils % 0.2 %; Eosinophils % 0.1 %; Lymphocytes # 0.9 10^3/uL (0.8-4.8); Mean Corpuscular HGB Conc 32.6 g/dL (30-55); Mean Corpuscular Hemoglobin 33.2 pg (27-33); Mean Corpuscular Volume 101.6 fl (82-101); Mean Platelet Volume 9.3 fL (7.4-10.4); Monocytes # 0.5 10^3/uL (0.2-0.9); Neutrophils # 8.01 10^3/uL (1.8-7.7); Neutrophils % 85.2 %; Nucleated Red Blood Cells % 0 %; Platelet Count 179 10^3/cmm (157-399); Red Blood Count 3.74 10^6/uL (3.85-5.65); Red Cell Distribution Width 11.8 % (12.1-15.1); White Blood Count 9.41 10^3/uL (3.29-11.43)
[2023-02-13 06:03] LABS: Anion Gap 15.9 (5-19); Blood Urea Nitrogen 19 mg/dL (6-20); Calcium 9.3 mg/dL (8.5-10.5); Carbon Dioxide 24 mmol/L (22-29); Chloride 100 mmol/L (98-107); Glomerular Filtration Rate 71.4 mL/min (90-130); Glucose 145 mg/dL (65-115); Osmolality Calculated 285 mOsm/kg (285-295); Potassium 4.9 mmol/L (3.5-5.1); Sodium 135 mmol/L (136-145)
[2023-02-13] MEDS: acetaminophen 1,000 MG/100 ML PIGGYBACK 400 MG IV (06:18)
[2023-02-13] MEDS: cholecalciferol (vitamin D3) 1,000 unit Tablet 1000 UNIT PO (08:47)
[2023-02-13] MEDS: ceFAZolin 2,000 MG in sodium chloride 0.9% (plus) 50 ML 100 MG IV (08:47)
[2023-02-13] MEDS: iron polysaccharide complex 150 mg Capsule PO (08:47)
[2023-02-13] MEDS: aspirin 325 mg EC Tablet PO (08:48)
[2023-02-13] MEDS: multivitamin therapeutic Tablet 1 TAB PO (08:48)
[2023-02-13] MEDS: calcium carbonate 500 mg Chew Tablet 1000 MG PO (08:48)
[2023-02-13] MEDS: losartan 50 mg Tablet 100 MG PO (08:48)
[2023-02-13] MEDS: amlodipine 5 mg Tablet 2.5 MG PO (08:48)
[2023-02-13] MEDS: chlorhexidine gluconate 0.12% Btl 473 mL 30 ML MUCOUS MEM (08:52)
--- NOTE | 2023-02-13 13:38 | P.PN_ITS ---
Subjective 2 Subjective: Patient is seen in his room with his and family. He is anxiously awaiting discharge and is comfortable on oral pain medications. Medications: Reviewed: Yes Vitals/I&O/Wt Last Vital Signs Temp 97.5 F L 02/13/23 12:47 Pulse 96 02/13/23 12:47 Resp 20 H 02/13/23 12:47 BP 146/89 02/13/23 12:47 Pulse Ox 97 02/13/23 12:47 O2 Del Method Room Air 02/13/23 09:05 O2 Flow Rate 2 02/12/23 18:00 02/12/23 02/13/23 02/13/23 22:59 06:59 14:59 Intake Total 2737 / 2887 850 / 3737 480 / 480 Output Total 1759 Balance 2726 / 7 / 1976 480 / 480 Weight last 48 hrs Weight 242 lb Weight 242 lb Weight 225 lb Physical Exam 2 Const: COMMON NORMALS: no acute distress, average body habitus, patient oriented x3 and alert GENERAL APPEARANCE: cooperative and comfortable O RIENTATION/CONSCIOUSNESS: Yes awake HENMT: COMMON NORMALS: normocephalic and atraumatic HEAD & SCALP: n ormocephalic and atraumatic Eye: GENERAL EYE: appearance normal, both eyes and all related structures Chest: COMMONS NORMALS: normal inspection of the chest Resp: COMMON NORMALS: normal respiratory effort EFFORT & INSPECTION: Yes able to speak in complete sentences and Yes symmetric chest movement Extremity: LEFT LOWER EXTREMITY: Yes hip joint (Dressing is intact) Left hip: Yes palpation (No significant swelling), Yes ROM (Not evaluated) and Yes neurovascular exam (Intact distally with no evidence of DVT) Neuro: COMMON NORMALS: patient oriented x3 SENSORIUM/ORIENTATION: Yes alert Psych: COMMON NORMALS: mental status grossly normal APPEARANCE: Yes grossly normal ATTITUDE: Yes calm and Yes engaged ATTENTION/CONCENTRATION: Yes attention grossly intact Skin: COMMON NORMALS: no rashes or lesions noted GENERAL SKIN EXAM: no rashes or lesions noted Data 02/13/23 05:29 02/13/23 05:29 A&P Assessment and plan (1) Closed subcapital fracture of femur: Patient was not admitted following open reduction internal fixation of an impacted nondisplaced left subcapital hip fracture. This was treated with cannulated screws. The patient is seen today, and he is stressed and anxious to be discharged to home. He is having no issues with pain management. He has no drainage, and his dressing is dry and intact. He will be discharged home to follow-up with me as scheduled. Qualifiers: Encounter type: initial encounter Laterality: left Qualified Code(s): S72.012A - Unspecified intracapsular fracture of left femur, initial encounter for closed fracture Attestations 2 Medical Necessity Statement*: Rehabilitation following ORIF hip fracture Coding Level of Care Code Acute Code for Chg Fwd Diagnoses Closed subcapital fracture of left femur, initial encounter S72.012A Encounter type: initial encounter Laterality: left
--- NOTE | 2023-02-13 14:13 | PC.NURSE ---
Discharge instructions provided to pt and significant other. NO questions or concerns at this time. Pt taken to private vehicle via wheelchair with all belongings with pt.
--- NOTE | 2023-02-13 14:55 | P.DS_ITS ---
Discharge Providers Date of Admission: 02/11/23 21:28 Date of Discharge: February 13, 2023 Attending Provider at Admission: Altagracia Oscar MD Attending Provider at Discharge: Caren Jimenez MD Primary Care Provider: KAREN Sloan Diagnoses at Discharge Discharge Diagnosis (1) Closed subcapital fracture of femur: Status: Acute Qualifiers: Encounter type: initial encounter Laterality: left Qualified Code(s): S72.012A - Unspecified intracapsular fracture of left femur, initial encounter for closed fracture Reason for Visit Reason for Visit: FALL Brief History: 47 year old male [facility] a mechanical fall at home that resulted in a hip fracture. Open reduction internal fixation was performed for left subcapital hip fracture utilizing cannulated screws x 3 on 02/02. Pain management was optimized during hospital stay. He is ambulating in the room today, evalauted by PT, home exercise program appropriate. No other acute events in [facility]. Physical Exam Narrative: General: No acute distress, AO x3 HEENT: PERRLA, pupils bilaterally equal and reactive, pallors not present Chest: Normal vesicular breath sounds, no added sounds, equal good air entry bilaterally CVS: S1-S2 regular, no murmurs, no tachycardia, no gallops, no rubs Abdomen: Soft, nontender, no organomegaly, bowel sounds present Neuro: No focal deficits, no facial deformity, AO x3, power 5/5 in all limbs Discharge Data Studies Completed and Pending Completed Studies During Hospitalization Category Date Time Status CT hip LT wo con* [id number] Stat Cat Scan 02/11/23 20:47 Completed XR chest 1V portable [id number] Stat Exams 02/11/23 21:19 Completed XR hip LT 1V wo/w pel [id number] Routine Exams 02/12/23 Completed XR hip LT 2-3V wo/w pel* [id number] Stat Exams 02/11/23 20:27 Completed XR lumbar spine 2-3V* [id number] Stat Exams 02/11/23 20:31 Completed Radiology Impressions Hip/Pelvis X-Ray 02/11/23 20:27 IMPRESSION: 1. Nondisplaced subcapital fracture of the left femoral neck. There is possible extension of the fracture distally into the mid left femoral neck. 2. Incidental/nonacute findings are listed in the report. Lumbar Spine X-Ray 02/11/23 20:31 IMPRESSION: 1. Image artifact on the lateral images limits evaluation. There is otherwise no evidence for acute fracture in the lumbar spine. No acute fracture. CT scan of the lumbar spine would be recommended if clinical concern for fracture persists. 2. Stable multilevel degenerative changes of varying severity in the visualized spine. 3. Incidental/nonacute findings are listed in the report. Hip CT 02/11/23 20:47 IMPRESSION: 1. There is a nondisplaced subcapital fracture of the left femoral neck at the superior femoral head/neck junction (series 6, images 76-83). 2. Small/moderate left hip joint effusion. 3. Diffuse, mild bladder wall thickening . In the correct clinical setting, this may suggest cystitis. Recommend correlation with laboratory findings. Alternatively, this may be secondary to chronic outlet obstruction. 4. Incidental/nonacute findings are listed in the report. Chest X-Ray 02/11/23 21:19 IMPRESSION: No acute findings. Laboratory Results WBC 9.41 10^3/uL (3.29-11.43) 02/13/23 05:29 RBC 3.74 10^6/uL (3.85-5.65) L 02/13/23 05:29 Hgb 12.40 g/dL (11.27-16.99) 02/13/23 05: Hct 38.0 % (37-53) 02/13/23 05:29 MCV 101.6 fl (82-101) H 02/13/23 05:29 MCH 33.2 pg (27-33) H 02/13/23 05: MCHC 32.6 g/dL (30-55) 02/13/23 05:29 RDW 11.8 % (12.1-15.1) L 02/13/23 05:29 Plt Count 179 10^3/cmm (157-399) 02/13/23 05: MPV 9.3 fL (7.4-10.4) 02/13/23 05: Neut % (Auto) 85.2 % 02/13/23 05:29 Lymph % (Auto) 9.0 % 02/13/23 05: Phillips % (Auto) 5.0 % 02/13/23 05: Eos % (Auto) 0.1 % 02/13/23 05:29 Baso % (Auto) 0.2 % 02/13/23 05:29 Neut # (Auto) 8.01 10^3/uL (1.8-7.7) H 02/13/23 05: Lymph # (Auto) 0.9 10^3/uL (0.8-4.8) 02/13/23 05:29 Phillips # (Auto) 0.5 10^3/uL (0.2-0.9) 02/13/23 05: Eos # (Auto) 0.0 10^3/uL (0.0-0.8) 02/13/23 05: Baso # (Auto) 0.0 10^3/uL (0.0-0.1) 02/13/23 05: Nucleated RBC % (auto) 0 % 02/13/23 05: Nucleated RBCs # 0.0 /100WBC 02/13/23 05: PT 13.40 SECONDS (12.1-14.9) 02/11/23 21:35 INR 0.99 (0.8-1.2) 02/11/23 21:35 Sodium 135 mmol/L (136-145) L 02/13/23 05:29 Potassium 4.9 mmol/L (3.5-5.1) 02/13/23 05:29 Chloride 100 mmol/L (98-107) 02/13/23 05:29 Carbon Dioxide 24 mmol/L (22-29) 02/13/23 05:29 Anion Gap 15.9 (5-19) 02/13/23 05: BUN 19 mg/dL (6-20) 02/13/23 05:29 Creatinine 1.1 mg/dL (0.7-1.2) 02/13/23 05:29 GFR Calculation 71.4 mL/min (90-130) L 02/13/23 05:29 Glucose 145 mg/dL (65-115) H 02/13/23 05:29 Calculated Osmolality 285 mOsm/kg (285-295) 02/13/23 05:29 Calcium 9.3 mg/dL (8.5-10.5) 02/13/23 05:29 Magnesium 1.9 mg/dL (1.7-2.3) 02/12/23 01:42 Total Bilirubin 0.2 mg/dL (0.15-1.2) 02/11/23 21:35 AST 61 U/L (0-40) H 02/11/23 21:35 ALT 68 U/L (0-41) H 02/11/23 21:35 Alkaline Phosphatase 83 U/L (40-130) 02/11/23 21:35 C-Reactive Protein 3.7 mg/L (0.0-4.9) 02/12/23 01:42 Total Protein 6.7 g/dL (6.6-8.7) 02/11/23 21:35 Albumin 4.0 g/dL (3.5-5.2) 02/11/23 21:35 Globulin 2.7 g/dL (1.3-4.6) 02/11/23 21:35 Vitamin B12 194 pg/mL (232-1245) L 02/12/23 01:42 Urine Color Yellow (Yellow) 02/12/23 01:50 Urine Appearance Clear (CLEAR) 02/12/23 01:50 Urine pH 7 (5-7) 02/12/23 01:50 Ur Specific Jackson 1.005 (1.005-1.030) 02/12/23 01:50 Urine Protein Neg (Negative) 02/12/23 01:50 Urine Glucose (UA) Norm (Normal) 02/12/23 01:50 Urine Ketones Negative (Negative) 02/12/23 01:50 Urine Blood Neg (Negative) 02/12/23 01:50 Urine Nitrate Negative (Negative) 02/12/23 01:50 Urine Bilirubin Neg (Negative) 02/12/23 01:50 Urine Urobilinogen Neg mg/dL (Negative) 02/12/23 01:50 Ur Leukocyte Esterase Negative (Negative) 02/12/23 01:50 Ethyl Alcohol 95 mg/dL (0-10) H 02/12/23 01:42 Vitals Last Vital Signs Temp 97.5 F L 02/13/23 14:12 Pulse 96 02/13/23 14:12 Resp 20 H 02/13/23 14:12 BP 146/89 02/13/23 14:12 Pulse Ox 97 02/13/23 14:12 O2 Del Method Room Air 02/13/23 09:05 O2 Flow Rate 2 02/12/23 18:00 Discharge Plan Discharge Patient Disposition: Home Condition: Stable Prescriptions: New hydrocodone-acetaminophen 5-325 mg Tablet 1 tab PO Q4H PRN (Reason: Moderate Pain) 5 Days Qty: 30 0RF ibuprofen 600 mg tablet 600 mg PO Q8H PRN (Reason: fever) Qty: 30 0RF Protonix 40 mg tablet,delayed release (DR/EC) 40 mg PO DAILY 28 Days Qty: 30 0RF Continued amlodipine 2.5 mg tablet 2.5 mg PO DAILY 90 Days Qty: 90 0RF losartan 100 mg tablet 100 mg PO DAILY 90 Days Qty: 90 0RF Discharge Orders: Discharge Order (Routine); Ordered 02/13/23 Ordered By: Caren Jimenez Referrals: Jessica Murdock MD [Physician] - 02/27/23 2:15 pm Juliano Wyatt FNP [Primary Care Provider] - Discharge Diet: Usual diet Discharge Activity: As per PT/OT instructions Patient Instructions: Hydrocodone/Acetaminophen (By mouth) (Vicodin, Min[place], Lortab), Hydrocodone/Acetaminophen (By mouth), Ibuprofen (By mouth) (Advil, Advil Children's, Motrin, Children's..., Ibuprofen (By mouth), Pantoprazole (By mouth) (Protonix), Pantoprazole (By mouth), Joint Replacement Stoplight, Opioid Safety Activity Restrictions/Additional Instructions: Weightbearing as tolerated. Use walker for assistance. Do not lift your children, and do not carry anything heavy. You may shower, but do not sit in a tub. You may get your hip wet, but maintain dressing. Discharge Attestations Time Spent in Discharge Care*: greater than 30 min Quality Metrics Clinical Quality Measures [ No reported AMI, CVA or VTE this stay] Coding Level of Care Code Acute Code for Chg Fwd Diagnoses Closed subcapital fracture of left femur, initial encounter S72.012A Encounter type: initial encounter Laterality: left
== END 2023-02-13 14:14 | disposition home or self-care (01) | DRG 481 ==
LOC: ER 22:12 → ER IP 02-12 01:05 → MEDSURG 02-12 08:39 → ER IP 02-13 09:04 → MEDSURG 02-13 09:06
PROVIDERS: Nurse Practitioner; Specialist; Admitting Provider Internal Medicine; Emergency Provider Emergency Medicine; PCP Registered Nurse; Visit Provider Student in an Organized Health Care Education/Training Program
PROC: 0QS704Z Reposition Left Upper Femur with Internal Fixation Device, Open Approach (ICD-10-PCS; CPT 27236; principal; 2023-02-12 15:15)
DX: S72.012A Unspecified intracapsular fracture of left femur, initial encounter for closed fracture (principal); F33.1 Major depressive disorder, recurrent, moderate; W01.0XXA Fall on same level from slipping, tripping and stumbling without subsequent striking against object, initial encounter; Y92.009 Unspecified place in unspecified non-institutional (private) residence as the place of occurrence of the external cause; F17.210 Nicotine dependence, cigarettes, uncomplicated; M54.32 Sciatica, left side; I10 Essential (primary) hypertension; N30.90 Cystitis, unspecified without hematuria; K58.0 Irritable bowel syndrome with diarrhea
CPT/HCPCS: 36415; 71045; 72100; 73501; 73502; 73700; 76000; 80048; 80053; 80307; 81003; 82607; 83735; 85025; 85610; 86140; 93005; 94660; 96374; 96376; 97161; 97165; 97530; 99291; C1713; J0131; J0690; J0696; J1100; J1170; J2250; J2371; J2405; J2704; J3010; J3490; J7030

== ENCOUNTER → 2023-02-18 10:08 | Outpatient (BNVA) | payer MEDICAID, SELFPAY | PROVIDERS: PCP Registered Nurse; Visit Provider Registered Nurse | DX: R73.9 Hyperglycemia, unspecified (principal) | CPT/HCPCS: 83036 ==

== ENCOUNTER → 2023-02-27 14:30 | Outpatient (BNVA) | payer MEDICAID, SELFPAY | PROVIDERS: PCP Registered Nurse; Visit Provider Nurse Practitioner | DX: M54.42 Lumbago with sciatica, left side; G89.29 Other chronic pain; S72.012S Unspecified intracapsular fracture of left femur, sequela; Z98.890 Other specified postprocedural states; X58.XXXS Exposure to other specified factors, sequela | CPT/HCPCS: 73502 ==

== ENCOUNTER 2023-03-13 19:45 | Inpatient (IN) | payer MEDICAID, SELFPAY ==
[2023-03-13 20:10] VITALS: BP 115/83; PULSE 101; RESP 18; TEMP 36.7; O2SAT 98; BMI 31.9
--- NOTE | 2023-03-13 20:10 | W.ED.PSYCHS ---
HPI - Psych General: Chief Complaint: Psychiatric Symptoms Stated Complaint: depression,SI Time Seen by Provider: 03/13/23 19:47 Source: patient Mode of arrival: ambulatory Limitations: no limitations History of Present Illness: 47-year-old male he states he has been having increasing depression along with suicidal thoughts. Patient's brought him. She states that he has been making threats to kill himself. He did fracture his hip recently and states that he just cannot deal with the pain anymore he is quite agitated here and angry. Associated symptoms: Reports depression and suicidal ideation Review of Systems Const: Denies: fever(s), chills, body aches or change in appetite ENMT: Denies: throat pain or dental pain Card: Denies: chest pain Resp: Denies: dyspnea GI: Denies: abdominal pain, nausea, vomiting or diarrhea Musc: Denies: neck pain or back pain Skin/Breast: Denies: rash Neuro: Denies: headache(s) Psych: Reports: depression and suicidal ideation [facility] ED PFSH: Medical History Chronic low back pain with left-sided sciatica Closed subcapital fracture of femur HTN (hypertension) Depression Surgical History S/P ORIF (open reduction internal fixation) fracture DOS 02/12/23 - Open reduction internal fixation left subcapital hip fracture utilizing cannulated screws x 3. Family History Grandfather CAD (coronary artery disease) Father Cancer Lung disease copd Sister Lung disease asthma Denies family history of Diabetes Chronic kidney disease (CKD) Hypertension Stroke Social History Smoking and tobacco/nicotine status: current some day tobacco/nicotine user Alcohol intake: current Alcohol intake frequency: few times a month Alcohol type: beer Substance/Drug Use: never Lives independently: No Household members: spouse Marital status: Current occupational status: employed Sexually active: Yes Do you think of yourself as: Straight/Heterosexual Current gender identity: Male Physical Exam Const: COMMON NORMALS: patient oriented x3 and healthy appearing HENMT: COMMON NORMALS: normocephalic and atraumatic HEAD & SCALP: normocephalic and atraumatic Neck/C-Spine: COMMON NORMALS: full ROM and supple Chest: COMMONS NORMALS: normal inspection of the chest Resp: COMMON NORMALS: normal respiratory effort Extremity: COMMON NORMALS: normal to inspection and full ROM Neuro: COMMON NORMALS: patient oriented x3, moves all extremities and no focal motor deficits Psych: COMMON NORMALS: mental status grossly normal and Normal thought process present ATTITUDE: Yes agitated MOOD & AFFECT: Yes depressed mood THOUGHT PROCESS: Normal thought process present THOUGHT CONTENT: Yes Suicidality present Skin: COMMON NORMALS: no rashes or lesions noted and no wounds GENERAL SKIN EXAM: no rashes or lesions noted Course Vital Signs: Vital signs: Vital Signs Temperature 98.0 F 03/13/23 20:10 Pulse Rate 101 H 03/13/23 20:10 Respiratory Rate 18 03/13/23 20:10 Blood Pressure 115/83 03/13/23 20:10 Pulse Oximetry 98 03/13/23 20:10 Oxygen Delivery Me thod Room Air 03/13/23 20:10 MDM - Psych Medical Decision Making Patient presents here with suicidal ideations patient was placed under 96-hour hold he is medically cleared spoke to psychiatrist and will admit. Lab Data I reviewed the patient's lab results. 03/13/23 20:31 03/13/23 20:31 No radiology studies performed this visit Discharge Plan Discharge Patient Disposition: Admitted As Inpatient Clinical Impression: Suicidal ideation Condition: Stable Coding Level of Care Code ED Supervisor Production for Maryam Emmanuel
[2023-03-13] MEDS: haloperidol inj 5 mg/mL INJ 1 mL IM (20:15)
[2023-03-13 20:37] LABS: Basophils # 0.1 10^3/uL (0.0-0.1); Basophils % 0.7 %; Eosinophils # 0.2 10^3/uL (0.0-0.8); Eosinophils % 1.6 %; Hematocrit 42.1 % (37-53); Lymphocytes # 3.5 10^3/uL (0.8-4.8); Lymphocytes % 33.5 %; Mean Corpuscular HGB Conc 34.2 g/dL (30-55); Mean Corpuscular Hemoglobin 32.9 pg (27-33); Mean Corpuscular Volume 96.1 fl (82-101); Mean Platelet Volume 9.3 fL (7.4-10.4); Monocytes # 0.9 10^3/uL (0.2-0.9); Monocytes % 8.5 %; Neutrophils # 5.74 10^3/uL (1.8-7.7); Neutrophils % 55.3 %; Nucleated Red Blood Cells % 0 %; Platelet Count 219 10^3/cmm (157-399); Red Blood Count 4.38 10^6/uL (3.85-5.65); Red Cell Distribution Width 12.1 % (12.1-15.1); White Blood Count 10.37 10^3/uL (3.29-11.43)
[2023-03-13 20:53] LABS: Alanine Aminotransferase 97 U/L (0-41); Albumin Level 4.1 g/dL (3.5-5.2); Alcohol Level 296 mg/dL (0-10); Alkaline Phosphatase 143 U/L (40-130); Anion Gap 18.5 (5-19); Aspartate Amino Transferase 127 U/L (0-40); Blood Urea Nitrogen 16 mg/dL (6-20); Calcium 8.4 mg/dL (8.5-10.5); Carbon Dioxide 20 mmol/L (22-29); Chloride 101 mmol/L (98-107); Globulin 3.5 g/dL (1.3-4.6); Glomerular Filtration Rate 64.6 mL/min (90-130); Glucose 122 mg/dL (65-115); Osmolality Calculated 284 mOsm/kg (285-295); Potassium 3.5 mmol/L (3.5-5.1); Sodium 136 mmol/L (136-145); Total Bilirubin 0.9 mg/dL (0.15-1.2); Total Protein 7.6 g/dL (6.6-8.7)
[2023-03-13 20:54] LABS: Acetaminophen < 5.0 ug/mL (10-30); Salicylate < 0.3 mg/dL (3-10)
--- NOTE | 2023-03-13 21:11 | PC.NURSE ---
Pt served with 96 HH by this RN and security, pt resting, snoring with eyes closed. Will reserve when pt awake.
--- NOTE | 2023-03-13 21:48 | PC.NURSE ---
Upon waiting for room to become clean and available for patient, patient began making angry outbursts, stating that he did not want to wait in the hallbed for a room and would rather wait in the waiting room. Nursing staff attempted to inform patient that he could not wait for room availability in the waiting room, as he needed a PSA due to SI. Patient then began to yell, This is bullshit, i cannot wait out here. Patient also stated, What do I have to do? Fucking fight everyone? Patient given verbal instruction to calm down by nursing staff and security, as well as Dr Jewell, to no success. Patient finally placed in own room, and did consent to IM Haldol and Ativan without any event to remain calm and cooperative. Patient currently resting in room, PSA present.
[2023-03-13 22:26] VITALS: BP 76/45; PULSE 93; RESP 16; O2SAT 94
--- NOTE | 2023-03-13 22:31 | PC.NURSE ---
Dr Patel informed of patient's last BP. Verbal order given to place IV, give fluids, and then re-assess BP prior to transfer to NPU.
[2023-03-13] MEDS: sodium chloride 0.9% 1,000 ML 999 ML IV (22:50)
[2023-03-13 23:47] VITALS: BP 113/75; PULSE 81; RESP 16; O2SAT 97
--- NOTE | 2023-03-13 23:55 | PC.NURSE ---
Report called to KAT Baker in NPU. All questions and concerns addressed at time of report.
[2023-03-14 01:33] VITALS: BP 122/85; PULSE 87; RESP 18; O2SAT 98
--- NOTE | 2023-03-14 01:49 | PC.ADMIT ---
[id number] Admission Note: The patient,Bernardo Lyon,47 y/o, was given written information regarding hospital policies, unit procedures and contact persons. Patient's smoking status: current some day smoker. Vital Signs - 8 hr 03/13/23 20:10 03/13/23 22:26 03/13/23 23:47 Temperature 98.0 F Pulse Rate 101 H 93 81 Respiratory Rate 18 16 16 Blood Pressure 115/83 76/45 113/75 Pulse Oximetry 98 94 97 Oxygen Delivery Method Room Air Room Air Room Air 03/14/23 01:33 Temperature Pulse Rate 87 Respiratory Rate 18 Blood Pressure 122/85 Pulse Oximetry 98 Oxygen Delivery Method Room Air ADMITTED FROM ER VIA WHEELCHAIR AND SECURITY ON A 96 HOUR HOLD THAT ENDS ON 03/20/23 AT 2055. PER ER PT CAME IN HAVING SUICIDAL THOUGHTS AND BECAME AGITATED TO THE POINT HE WAS SEDATED. UPON ARRIVAL PT WAS FALLING ASLEEP AND SNORING WHEN POWER AND RECOVERY SUPERVISOR WAS ATTEMPTING TO GET VITALS. PT WAS UNABLE TO STAY AWAKE TO COMPLETE ADMISSION ASSESSMENT AND PAPERWORK. PT WAS ASSISTED TO ROOM AND MADE COMFORTABLE. PT IMMEDIATELY STARTED TO SNORE AND WENT TO SLEEP. WILL OBTAIN ADMISSION INFORMATION WHEN PT AROUSES.
[2023-03-14 06:00] VITALS: BP 114/79; PULSE 82; RESP 18; TEMP 36.6; O2SAT 95
[2023-03-14] MEDS: pantoprazole DR 40 mg Tablet PO (09:07)
[2023-03-14] MEDS: thiamine 100 mg Tablet PO (09:07)
[2023-03-14] MEDS: multivitamin therapeutic Tablet 1 TAB PO (09:07)
[2023-03-14] MEDS: nicotine 4 mg lozenge MUCOUS MEM (09:07)
[2023-03-14] MEDS: folic acid 1 mg Tablet PO (09:07)
[2023-03-14] MEDS: meloxicam 7.5 mg tablet 15 MG PO (09:07)
[2023-03-14] MEDS: amlodipine 5 mg Tablet 2.5 MG PO (09:07)
--- NOTE | 2023-03-14 11:54 | PC.NURSE ---
Patient appears very depressed this morning. He denies avh and hi. He denies si this morning, but says he has had thoughts of hurting himself recently. Patient states he has mounting stressors including the recent of his mother that lived next to him, the stillbirth of his daughter's twins, the acute pain in his back, and taking care of his 3 yo, 4 yo, and 10 month old while his is at work. He states his 4 year old has severe epilepsy and can't talk, and also broke her collarbone this last week. Patient cooperative with assessment and denies any drug use, but does endorse occasional alcohol usage.
[2023-03-14 14:00] VITALS: BP 148/100; PULSE 110; RESP 18; TEMP 36.6; O2SAT 99
--- NOTE | 2023-03-14 17:02 | W.PM.NPUH&PS ---
Providers/Chief Complaint Admitting Physician: Christophe Fernandez MD Primary Care Provider: KAREN Sloan Chief Complaint: depression,SI HPI NPU History of Present Illness Bernardo Lyon is a 47 year old male with no previous history of inpatient psychiatric hospitalizations who was brought to the emergency department after the patient's live-in girlfriend and mother of his children had been concerned about the patient's worsening depression and threats that the patient had made to hurt to kill himself. The patient was admitted to the neuropsychiatric unit for further evaluation and treatment. He reports that he has been increasingly frustrated and angry as he reports that he has been unable to manage the pain from his recent surgery in his hip in January of this year. The patient reports that he has been more depressed since his mother had approximately 5 months ago. He reports low energy, low motivation, and he Maria Del Carmen, hypersomnia, increased crying spells, and problems with concentration. He reports no seasonal variability to his mood. He reports no diurnal variation. He does report having occasional suicidal thoughts but states that he is not had any plan. He did state that the pain after his surgery had complicated the matter as he has stated that he often feels like he would be better off not living if he had to manage the this amount of pain. He denied any history of gregorio. He denied any history of psychotic symptoms. He reports no history of drug or alcohol issues despite having a blood alcohol of 293 on admission. He had admitted to using alcohol that day to manage pain but described having no significant history of alcohol abuse with no history of alcohol-related withdrawals. He reports no change in tolerance or increase in consumption of alcohol. Inpatient psychiatric history: None Outpatient psychiatric history: He reports recently seeing a therapist or psychiatrist Nabil Wyatt who had prescribed Prozac to help him for depression although he had reported having discontinued this because of headaches. He also reported having been prescribed Wellbutrin XL twice a day to manage smoking cessation. He is currently not receiving any outpatient treatment. Medical history: Hip pain (L), back pain,, hypertension Surgical history: Recent open reduction internal fixation of left subcapital hip from fracture using cannulated screws x 3, Medications: Amlodipine 2.5 mg daily, losartan 100 mg daily, meloxicam 15 mg daily, Protonix 40 mg daily Allergies: Codeine, avocados, bananas Legal history: None Drug and alcohol history: None; he reports no history of rehabilitation nor does he report any chronic use of alcohol. Family psychiatric history: None reported Social history: Patient was born in [place] and raised in [place] by his biological parents. He reports having a relatively happy childhood. He had reported no history of any learning problems. He graduated from [employer]. He reports that he had no history of sexual physical or emotional abuse. 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 He reports that he has 6 children and lives currently on a property in [place] that he rents along with his girlfriend who is the father of his 4 younger children. He has 1 brother and 1 sister. He was raised in an intact family. He reports that his mother had of lung cancer and his father had of kidney cancer. He reports that he continues to smoke cigarettes on a daily basis. He has been from his previous that he had been to for the last 27 years. Meds NPU Home Medications Medication Instructions Recorded Confirmed Last Taken Type amlodipine 2.5 mg tablet 2.5 mg PO DAILY 90 days #90 tabs 11/26/22 03/14/23 02/11/23 Rx losartan 100 mg tablet 100 mg PO DAILY 90 days #90 tabs 11/26/22 03/14/23 02/11/23 Rx meloxicam 15 mg tablet 15 mg PO DAILY #90 tabs 02/27/23 03/14/23 Unknown Rx pantoprazole 40 mg tablet,delayed 40 mg PO DAILY 03/14/23 03/14/23 Unknown History release (Protonix) Allergies Allergy/AdvReac Type Severity Reaction Status Date / Time codeine Allergy Severe shortness Verified 03/14/23 01:59 of breath avocado Allergy Unknown Verified 03/14/23 01:59 banana Allergy Unknown Verified 03/14/23 01:59 PFSH NPU PFSH: Medical History Chronic low back pain with left-sided sciatica Closed subcapital fracture of femur HTN (hypertension) Depression Surgical History S/P ORIF (open reduction internal fixation) fracture DOS 02/12/23 - Open reduction internal fixation left subcapital hip fracture utilizing cannulated screws x 3. Family History Grandfather CAD (coronary artery disease) Father Cancer Lung disease copd Sister Lung disease asthma Denies family history of Diabetes Chronic kidney disease (CKD) Hypertension Stroke Social History Smoking and tobacco/nicotine status: current some day tobacco/nicotine user Alcohol intake: current Alcohol intake frequency: few times a month Alcohol type: beer Substance/Drug Use: never Lives independently: No Household members: spouse Marital status: Current occupational status: employed Sexually active: Yes Do you think of yourself as: Straight/Heterosexual Current gender identity: Male Mental Status Exam MSE Comments: Patient is a 47-year-old male who appeared his stated age with fair eye contact and normal hygiene. He had an antalgic gait and appeared in some mild to moderate distress while walking. There was evidence of psychomotor retardation. There was no other evidence of any abnormal involuntary motor movements tics or tremors appreciated. Speech was normal in regards to rate rhythm and prosody. His mood was described as depressed. His affect was restricted in range and mood congruent. He endorsed suicidal ideation with no active plan. He denied any homicidal ideation. He did not appear to be responding to internal stimuli. There is no clear evidence of delusional thinking. His attention span appeared fair. His recent and remote memory were grossly intact. He was alert and oriented to person place time and situation. His insight is poor. His judgment was poor. His impulse control appeared limited. Vitals/I&O/Wt Last Vital Signs Temp 98 F 03/14/23 14:00 Pulse 110 H 03/14/23 14:00 Resp 18 03/14/23 14:00 BP 148/100 03/14/23 14:00 Pulse Ox 99 03/14/23 14:00 O2 Del Method Room Air 03/14/23 06:00 03/14/23 03/14/23 03/14/23 06:59 14:59 22:59 Intake Total 982.35 / 982.35 Balance 982.35 / 982.35 Weight last 48 hrs Weight 103.873 kg Data NPU 03/13/23 20:31 03/13/23 20:31 A&P Assessment and plan (1) Major depressive disorder, single episode, severe: (2) Pain disorder associated with psychological and physical factors: (3) Alcohol use: Plan 47-year-old male with a recent depression for the past 5 months exacerbated by chronic continuous pain status post surgery with suicidal ideation currently. Patient would likely benefit from continued inpatient hospital stay. 1. Encourage individual, group and milieu therapy. 2. Recommend sober living treatment at the highest level of care to which the patient is willing to commit. CIWA protocol. 3. Continue q-15 minute checks for safety.? 4.? Restart current medications. Add Cymbalta 30mg daily to target depression and plain. 5.? Will attempt to gather collateral information. Involuntary Hold Information 96 Hour Hold: 96 Hour Involuntary Admission: Yes 96 Hour Hold Ending Date: 03/20/23 96 Hour Hold Ending Time: 20:05 Attestations NPU Medical Necessity Statement*: Inpatient hospitalization is medically necessary and deemed to be the clinically appropriate intervention at this time. Patient will be started on medications and the medications will be titrated as clinically indicated. Patient will be in the hospital for at least 2 midnights. The patient's likely length of stay is 3 to 5 days. Coding Level of Care Code Acute Code for [facility] Fwd Diagnoses Major depressive disorder, single episode, severe F32.2 Pain disorder associated with psychological and physical factors F45.42 Alcohol use Z78.9
[2023-03-14 20:16] VITALS: BP 162/100; PULSE 98; RESP 18; TEMP 36.6; O2SAT 97
[2023-03-14] MEDS: trazodone 50 mg Tablet PO (21:00)
[2023-03-15 06:00] VITALS: RESP 16
[2023-03-15] MEDS: meloxicam 7.5 mg tablet 15 MG PO (09:52)
[2023-03-15] MEDS: amlodipine 5 mg Tablet 2.5 MG PO (09:52)
[2023-03-15] MEDS: folic acid 1 mg Tablet PO (09:53)
[2023-03-15] MEDS: duloxetine 30 mg Capsule PO (09:53)
[2023-03-15 09:54] VITALS: BP 129/87
[2023-03-15] MEDS: losartan 50 mg Tablet 100 MG PO (09:54)
[2023-03-15] MEDS: pantoprazole DR 40 mg Tablet PO (09:56)
[2023-03-15] MEDS: multivitamin therapeutic Tablet 1 TAB PO (09:56)
[2023-03-15] MEDS: thiamine 100 mg Tablet PO (09:56)
[2023-03-15 14:00] VITALS: BP 138/92; PULSE 100; RESP 16; TEMP 36.8; O2SAT 99
--- NOTE | 2023-03-15 15:56 | P.NPUDS_ITS ---
Diagnoses at Discharge Discharge Diagnosis (1) Major depressive disorder, single episode, severe: Status: Acute (2) Pain disorder associated with psychological and physical factors: Status: Acute (3) Alcohol use: Status: Acute Reason for Visit Reason for Visit: depression,SI Brief History: History of Present Illness Bernardo Lyon is a 47 year old male with no previous history of inpatient psychiatric hospitalizations who was brought to the emergency department after the patient's live-in girlfriend and mother of his children had been concerned about the patient's worsening depression and threats that the patient had made to hurt to kill himself. The patient was admitted to the neuropsychiatric unit for further evaluation and treatment. He reports that he has been increasingly frustrated and angry as he reports that he has been unable to manage the pain from his recent surgery in his hip in January of this year. The patient reports that he has been more depressed since his mother had approximately 5 months ago. He reports low energy, low motivation, and he [place] Carmen, hypersomnia, increased crying spells, and problems with concentration. He reports no seasonal variability to his mood. He reports no diurnal variation. He does report having occasional suicidal thoughts but states that he is not had any plan. He did state that the pain after his surgery had complicated the matter as he has stated that he often feels like he would be better off not living if he had to manage the this amount of pain. He denied any history of gregorio. He denied any history of psychotic symptoms. He reports no history of drug or alcohol issues despite having a blood alcohol of 293 on admission. He had admitted to using alcohol that day to manage pain but described having no significant history of alcohol abuse with no history of alcohol-related withdrawals. He reports no change in tolerance or increase in consumption of alcohol. Inpatient psychiatric history: None Outpatient psychiatric history: He reports recently seeing a therapist or psychiatrist Nabil Wyatt who had prescribed Prozac to help him for depression although he had reported having discontinued this because of headaches. He also reported having been prescribed Wellbutrin XL twice a day to manage smoking cessation. He is currently not receiving any outpatient treatment. Medical history: Hip pain (L), back pain,, hypertension Surgical history: Recent open reduction internal fixation of left subcapital hip from fracture using cannulated screws x 3, Medications: Amlodipine 2.5 mg daily, losartan 100 mg daily, meloxicam 15 mg daily, Protonix 40 mg daily Allergies: Codeine, avocados, bananas Legal history: None Drug and alcohol history: None; he reports no history of rehabilitation nor does he report any chronic use of alcohol. Family psychiatric history: None reported Social history: Patient was born in [place] and raised in [place] by his biological parents. He reports having a relatively happy childhood. He had reported no history of any learning problems. He graduated from [employer]. He reports that he had no history of sexual physical or emotional abuse. 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 He reports that he has 6 children and lives currently on a property in [place] that he rents along with his girlfriend who is the father of his 4 younger children. He has 1 brother and 1 sister. He was raised in an intact family. He reports that his mother had of lung cancer and his father had of kidney cancer. He reports that he continues to smoke cigarettes on a daily basis. He has been from his previous that he had been to for the last 27 years. Meds NPU Home Medications Medication Instructions Recorded Confirmed Last Taken Type amlodipine 2.5 mg tablet 2.5 mg PO DAILY 90 days #90 tabs 11/26/22 03/14/23 02/11/23 Rx losartan 100 mg ta blet 100 mg PO DAILY 90 days #90 tabs 11/26/22 03/14/23 02/11/23 Rx meloxicam 15 mg ta blet 15 mg PO DAILY #90 tabs 02/27/23 03/14/23 Unknown Rx pantoprazole 40 mg tablet,delayed 40 mg PO DAILY 03/14/23 03/14/23 Unknown History release (Protonix) Allergies Allergy/AdvReac Type Severity Reaction Status Date / Time codeine Allergy Severe shortness Verified 03/14/23 01:59 of breath avocado Allergy Unknown Verified 03/14/23 01:59 banana Allergy Unknown Verified 03/14/23 01:59 [facility] NPU Medical History Chronic low back pain with left-sided sciatica Closed subcapital fracture of femur HTN (hypertension) Depression Surgical History S/P ORIF (open reduction internal fixation) fracture DOS 02/12/23 - Open reduction internal fixation left subcapital hip fracture utilizing cannulated screws x 3. Family History Grandfather CAD (coronary artery disease)Father CancerLung disease copdSister Lung disease asthmaDenies family history of DiabetesChronic kidney disease (CKD)HypertensionStroke Social History Smoking and tobacco/nicotine status: current some day tobacco/nicotine user Alcohol intake: current Alcohol intake frequency: few times a month Alcohol type: beer Substance/Drug Use: never Lives independently: No Household members: spouse Marital status: Current occupational status: employed Sexually active: Yes Do you think of yourself as: Straight/Heterosexual Current gender identity: Male Hospital Course Hospital Course During the hospitalization, the patient had routine laboratory studies which were within normal limits except for a few outliers.? Additionally, there was a general medical evaluation which was also within normal limits and revealed no new acute processes.? At the time of discharge, lethality was denied and psychosis was resolving.? Mood and anxiety were well managed.? The patient endorsed a plan to avoid all drugs of abuse and follow up with the aftercare recommendations of the treatment team.? The patient was evaluated and deemed to be absent credible lethality and had achieved the maximum benefit from an inpatient hospitalization, and so was discharged.? Patient was started on Cymbalta to target depression and anxiety and seroquel was continued adjunctively to target depression. Gabapentin was initiated to target anxiety and sciatica. Involuntary Hold Information 96 Hour Hold: 96 Hour Involuntary Admission: Yes 96 Hour Hold Ending Date: 03/20/23 96 Hour Hold Ending Time: 20:05 Mental Status Exam MSE Comments: Patient is a 47-year-old male who appeared his stated age with fair eye contact and normal hygiene. He had an antalgic gait and appeared in some mild to moderate distress while walking. There was evidence of mild psychomotor retardation. There was no other evidence of any abnormal involuntary motor movements tics or tremors appreciated. Speech was normal in regards to rate rhythm and prosody. His mood was described as better. His affect was less restricted on discharge. He endorsed no suicidal ideation with no active plan. He denied any homicidal ideation. He did not appear to be responding to internal stimuli. There is no clear evidence of delusional thinking. His attention span appeared fair. His recent and remote memory were grossly intact. He was alert and oriented to person place time and situation. His insight is better. His judgment was fair.. His impulse control appeared better. Discharge Data Studies Completed and Pending: Pending at discharge Category Date Time Status Drug Screen, Urin e Stat Lab 03/15/23 08:24 Ordered Laboratory Results WBC 10.37 10^3/uL (3. 29-11.43) 03/13/23 20: RBC 4.38 10^6/uL (3.8 5-5.65) 03/13/23 20: Hgb 14.40 g/dL (11.27 -16.99) 03/13/23 20:31 Hct 42.1 % (37-53) 03/13/23 20: MCV 96.1 fl (82-101) 03/13/23 20: MCH 32.9 pg (27-33) 03/13/23 20: MCHC 34.2 g/dL (30-55) 03/13/23 20:31 RDW 12.1 % (12.1-15.1 ) 03/13/23 20:31 Plt Count 219 10^3/cmm (157 -399) 03/13/23 20:31 MPV 9.3 fL (7.4-10.4) 03/13/23 20:31 Neut % (Auto) 55.3 % 03/13/23 20:31 Lymph % (Auto) 33.5 % 03/13/23 20:31 [place] % (Auto) 8.5 % 03/13/23 20:31 Eos % (Auto) 1.6 % 03/13/23 20:31 Baso % (Auto) 0.7 % 03/13/23 20: Neut # (Auto) 5.74 10^3/uL (1.8 -7.7) 03/13/23 20:31 Lymph # (Auto) 3.5 10^3/uL (0.8- 4.8) 03/13/23 20:31 [place] # (Auto) 0.9 10^3/uL (0.2- 0.9) 03/13/23 20:31 Eos # (Auto) 0.2 10^3/uL (0.0- 0.8) 03/13/23 20: Baso # (Auto) 0.1 10^3/uL (0.0- 0.1) 03/13/23 20:31 Nucleated RBC % (a uto) 0 % 03/13/23 20: Nucleated RBCs # 0.0 /100WBC 03/13/23 20:31 Sodium 136 mmol/L (136-1 45) 03/13/23 20:31 Potassium 3.5 mmol/L (3.5-5 .1) 03/13/23 20: Chloride 101 mmol/L (98-10 7) 03/13/23 20: Carbon Dioxide 20 mmol/L (22-29) L 03/13/23 20:31 Anion Gap 18.5 (5-19) 03/13/23 20:31 BUN 16 mg/dL (6-20) 03/13/23 20: Creatinine 1.2 mg/dL (0.7-1. 2) 03/13/23 20:31 GFR Calculation 64.6 mL/min (90-1 30) L 03/13/23 20:31 Glucose 122 mg/dL (65-115 ) H 03/13/23 20:31 Calculated Osmolal ity 284 mOsm/kg (285- 295) L 03/13/23 20:31 Calcium 8.4 mg/dL (8.5-10 .5) L 03/13/23 20:31 Total Bilirubin 0.9 mg/dL (0.15-1 .2) 03/13/23 20:31 AST 127 U/L (0-40) H 03/13/23 20:31 ALT 97 U/L (0-41) H 03/13/23 20:31 Alkaline Phosphata se 143 U/L (40-130) H 03/13/23 20:31 Total Protein 7.6 g/dL (6.6-8.7 ) 03/13/23 20:31 Albumin 4.1 g/dL (3.5-5.2 ) 03/13/23 20: Globulin 3.5 g/dL (1.3-4.6 ) 03/13/23 20:31 Salicylates < 0.3 mg/dL (3-10 ) L 03/13/23 20:31 Acetaminophen < 5.0 ug/mL (10-3 0) L 03/13/23 20:31 Ethyl Alcohol 296 mg/dL (0-10) H 03/13/23 20:31 Vitals: Last Vital Signs Temp 98.3 F 03/15/23 14:00 Pulse 100 03/15/23 14:00 Resp 16 03/15/23 14:00 BP 138/92 03/15/23 14:00 Pulse Ox 99 03/15/23 14:00 O2 Del Method Room Air 03/15/23 14:00 Discharge Plan Discharge Patient Disposition: Home Condition: Stable Prescriptions: New duloxetine 30 mg Capsule,Delayed Release(Dr/Ec) 30 mg PO DAILY 30 Days Qty: 30 1RF Vitamin B-1 (mononitrate) 100 mg Tablet 100 mg PO DAILY 30 Days Qty: 30 1RF gabapentin 300 mg capsule 300 mg PO TID Qty: 90 1RF Continued meloxicam 15 mg tablet 15 mg PO DAILY Qty: 90 0RF Rx Instructions: Take with food. amlodipine 2.5 mg tablet 2.5 mg PO DAILY 90 Days Qty: 90 0RF losartan 100 mg tablet 100 mg PO DAILY 90 Days Qty: 90 0RF pantoprazole [Protonix] 40 mg tablet,delayed release (DR/EC) 40 mg PO DAILY Discharge Orders: Discharge Order (Routine); Ordered 03/15/23 Ordered By: Gilberto Harvey Referrals: [facility] [Outside] - 03/20/23 12:30 pm (initial appointment for 03/20/23 @ 12:30 pm) Juliano Wyatt FNP [Primary Care Provider] - 03/22/23 8:20 am (Follow up) Discharge Diet: Usual diet Discharge Activity: Resume usual activity Patient Instructions: Opioid Safety Discharge Attestations NPU Time Spent in Discharge Care*: less than 30 min Specific Discharge Activities: Specific discharge activities: educating patient, documenting/other paperwork and evaluating patient/reviewing data Coding Level of Care Code Acute Code for [facility] Fwd Diagnoses Major depressive disorder, single episode, severe F32.2 Pain disorder associated with psychological and physical factors F45.42 Alcohol use Z78.9
[2023-03-15 16:09] VITALS: BP 138/92; PULSE 100; RESP 16; TEMP 36.8; O2SAT 99
== END 2023-03-15 19:30 | disposition home or self-care (01) | DRG 885 ==
LOC: ER 21:05 → NP 23:58
PROVIDERS: Admitting Provider Psychiatry & Neurology Psychiatry; Emergency Provider Emergency Medicine; PCP Registered Nurse; Visit Provider Psychiatry & Neurology Psychiatry
DX: R45.851 Suicidal ideations (principal); G89.29 Other chronic pain; F32.2 Major depressive disorder, single episode, severe without psychotic features; F17.210 Nicotine dependence, cigarettes, uncomplicated; F10.929 Alcohol use, unspecified with intoxication, unspecified; Y90.8 Blood alcohol level of 240 mg/100 ml or more; F45.42 Pain disorder with related psychological factors
CPT/HCPCS: 36415; 80053; 80307; 85025; 96372; 97150; 97165; 99285; J1630; J2060; J7030

== ENCOUNTER → 2023-03-27 14:50 | Outpatient (BNVA) | payer MEDICAID, SELFPAY | PROVIDERS: PCP Registered Nurse; Visit Provider Nurse Practitioner | DX: Z98.890 Other specified postprocedural states (principal); M54.42 Lumbago with sciatica, left side; G89.29 Other chronic pain; S72.012S Unspecified intracapsular fracture of left femur, sequela; X58.XXXS Exposure to other specified factors, sequela | CPT/HCPCS: 73502 ==

== ENCOUNTER 2023-03-29 20:02 | Observation (INO) | payer MEDICAID, SELFPAY ==
[2023-03-29 20:40] VITALS: BP 131/85; PULSE 86; RESP 20; TEMP 37; O2SAT 100; BMI 32.6
--- NOTE | 2023-03-29 21:05 | ECG_ITS ---
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 Measurements Intervals [place] Rate: 80 P: 62 NH: 167 QRS: 78 QRSD: 93 T: 43 QT: 374 QTc: 433 Interpretive Statements SINUS RHYTHM POSSIBLE LEFT ATRIAL ENLARGEMENT [-0.1mV P-WAVE IN V1/V2] POSSIBLE INFERIOR MYOCARDIAL INFARCTION , PROBABLY OLD [30 ms Q WAVE IN II/aVF] Compared to ECG 02/11/2023 21:35:19 Myocardial infarct finding now present Sinus tachycardia no longer present Electronically Signed On 04-01-2023 7:59:01 [employer]ES REPRESENT[employer]IVE [employer] by Cameron Angeles M.D. [id number]
--- NOTE | 2023-03-29 21:13 | CTR_ITS ---
PROCEDURE INFORMATION: Exam: CT Head Without Contrast Exam date and time: 03/29/2023 9:29 PM Age: 47 years old Clinical indication: Altered mental status/memory loss; Patient HX: EMS arrival for manic like behavior. ; Additional info: Mental status change TECHNIQUE: Imaging protocol: Computed tomography of the head without contrast. Radiation optimization: All CT scans at this facility use at least one of these dose optimization techniques: automated exposure control; mA and/or kV adjustment per patient size (includes targeted exams where dose is matched to clinical indication); or iterative reconstruction. COMPARISON: No relevant prior studies available. RADIATION DOSE METRICS: Total DLP (mGy-cm): 1012.68 FINDINGS: Brain: No acute intracranial hemorrhage. No acute territorial region of castillo-white dedifferentiation. No extra-axial collection. No mass effect or midline shift. Cerebral ventricles: No acute hyrocephalus. Paranasal sinuses: Visualized sinuses are well-aerated. No fluid levels. Mastoid air cells: Visualized mastoid air cells are well aerated. Orbital cavities: No acute abnormality. Bones/joints: No acute calvarial fracture. Soft tissues: No acute abnormality. CT/CT head wo con* [id number] IMPRESSION: No acute findings.
--- NOTE | 2023-03-29 21:16 | ED.C_ITS ---
HPI - Psych 2 General: Chief Complaint: Psychiatric Symptoms Stated Complaint: SI/back pain Time Seen by Provider: 03/29/23 20:35 History of Present Illness: 47-year-old male presents to the emergen cy department via EMS personnel from his home. Patient states that on or about February 11, 2023 he slipped at his home and fractured his left hip. He states that he came to the hospital had it repaired and has been in pain since that time. He states he is been seen by his orthopedic physician for follow-up and ultimately recently presented to the emergency department here because of increased stress and pain and was admitted to the neuropsychiatric unit for additional evaluation treatment and care. Patient states that he has been taking his medications as prescribed and on a postoperative visit to his orthopedic physician was prescribed gabapentin for pain and also prednisone and B1 vitamin complex. Patient states that he feels that something is absolutely wrong as he feels like he is repeating himself during his conversations. He denies additional known injury or trauma. He does endorse daily alcohol use. The patient's significant other Anabella did call and speak with me and states that she is very concerned as he was acting very manic after starting the prednisone medication earlier today. The patient states his pain is a 10 out of 10. He states the pain is constant and aching and nothing makes it better and lying on his left side compressing the previously injured and repaired hip makes the pain better. Associated symptoms: Reports depression; Deny homicidal ideation or suicidal ideation Review of Systems 2 General: Reports: 10 or more systems reviewed and unremarkable except in HPI and below Musc: Reports: extremity pain Psych: Reports: anxiety, depression and sleeping less; Denies: suicidal ideation or homicidal ideation [facility] ED 2 PFSH: Medical History Chronic low back pain with left-sided sciatica Closed subcapital fracture of femur HTN (hypertension) Depression Surgical History S/P ORIF (open reduction internal fixation) fracture DOS 02/12/23 - Open reduction internal fixation left subcapital hip fracture utilizing cannulated screws x 3. Family History Grandfather CAD (coronary artery disease) Father Cancer Lung disease copd Sister Lung disease asthma Denies family history of Diabetes Chronic kidney disease (CKD) Hypertension Stroke Social History Smoking and tobacco/nicotine status: current some day tobacco/nicotine user Alcohol intake: current Alcohol intake frequency: few times a month Alcohol type: beer Substance/Drug Use: never Lives independently: No Household members: spouse Marital status: Current occupational status: employed Sexually active: Yes Do you think of yourself as: Straight/Heterosexual Current gender identity: Male Physical Exam 2 Narrative: EXAM NARRATIVE: Constitutional: the patient appears well nourished and of normal development. Vital signs as documented. No acute distress at present. Alert and oriented-to person, place, time and situation. Head, eyes, ears, nose, mouth, throat: Normocephalic, atraumatic. Pupils-equal, round, reactive to light. No scleral icterus. Normal-appearing external ears. Normal appearing nasal turbinates, no drainage. No obvious oral lesions, posterior oropharynx without erythema or exudates. Neck: Supple, trachea is midline, no lymphadenopathy, no jugular venous distension, thyromegaly, or carotid bruits. Carotid upstrokes are brisk bilaterally. Lungs: clear to auscultation to all lung márquez. Symmetrical rise and fall of chest, no obvious signs of increased work of breathing at present. Cardiac: Regular rate and rhythm, positive S1, S2. No murmurs, rubs or gallops that I can appreciate Abdomen: Soft, non-tender to palpation, normal active bowel sounds to all quadrants. No palpable masses, no organomegaly and abdominal bruits. Extremities: 2+ pulses in the upper extremities that are equal bilaterally, 2+ pulses in the lower extremities that are equal bilaterally. Non-edematous. Moves all extremities well, sensation to all extremities are noted. Skin: Warm, dry, intact. Psychiatric: Patient does appear to be hypomanic at present. He is difficult to redirect and has pressured speech. He denies SI/HI. Course 2 Vital Signs: Vital signs: Vital Signs Temperature 98.6 F 03/29/23 20:40 Pulse Rate 86 03/29/23 20:40 Respiratory Rate 20 H 03/29/23 20:40 Blood Pressure 131/85 03/29/23 20:40 Pulse Oximetry 100 03/29/23 20:40 MDM - Psych Medical Decision Making 47-year-old male with recent history of left hip repair, chronic alcohol abuse, recently seen by his orthopedic physician and with recent admission to the neuropsychiatric unit presents from home in a hypomanic state after starting prednisone and gabapentin as well as thiamine. Patient continues to state that he has chronic pain and feels that there is something wrong in his head as he feels like he is repeating himself multiple times today during his conversations. I will obtain psychiatric clearance medications and a CT scan of his head. Differential diagnosis includes chronic pain syndrome, corticosteroid induced psychosis, Warnicke's encephalopathy, electrolyte abnormality. Medical Records I reviewed the patient's medical records. Lab Data I reviewed the patient's lab results. 03/29/23 21:12 03/29/23 21:[address] 03/29/23 21:13 IMPRESSION: No acute findings. Laboratory Results WBC 6.90 10^3/uL (3.29-11.43) 03/29/23 21: RBC 3.86 10^6/uL (3.85-5.65) 03/29/23 21:12 Hgb 12.70 g/dL (11.27-16.99) 03/29/23 21:12 Hct 36.7 % (37-53) L 03/29/23 21:12 MCV 95.1 fl (82-101) 03/29/23 21:12 MCH 32.9 pg (27-33) 03/29/23 21:12 MCHC 34.6 g/dL (30-55) 03/29/23 21:12 RDW 12.7 % (12.1-15.1) 03/29/23 21:12 Plt Count 326 10^3/cmm (157-399) 03/29/23 21:12 MPV 9.1 fL (7.4-10.4) 03/29/23 21:12 Neut % (Auto) 85.0 % 03/29/23 21: Lymph % (Auto) 12.3 % 03/29/23 21:12 [place] % (Auto) 1.4 % 03/29/23 21:12 Eos % (Auto) 0.0 % 03/29/23 21: Baso % (Auto) 0.6 % 03/29/23 21: Neut # (Auto) 5.86 10^3/uL (1.8-7.7) 03/29/23 21:12 Lymph # (Auto) 0.9 10^3/uL (0.8-4.8) 03/29/23 21:12 [place] # (Auto) 0.1 10^3/uL (0.2-0.9) L 03/29/23 21:12 Eos # (Auto) 0.0 10^3/uL (0.0-0.8) 03/29/23 21:12 Baso # (Auto) 0.0 10^3/uL (0.0-0.1) 03/29/23 21:12 Nucleated RBC % (auto) 0 % 03/29/23 21:12 Nucleated RBCs # 0.0 /100WBC 03/29/23 21:12 Sodium 133 mmol/L (136-145) L 03/29/23 21:12 Potassium 3.9 mmol/L (3.5-5.1) 03/29/23 21:12 Chloride 100 mmol/L (98-107) 03/29/23 21:12 Carbon Dioxide 18 mmol/L (22-29) L 03/29/23 21:12 Anion Gap 18.9 (5-19) 03/29/23 21:12 BUN 15 mg/dL (6-20) 03/29/23 21:12 Creatinine 1.2 mg/dL (0.7-1.2) 03/29/23 21:12 GFR Calculation 64.6 mL/min (90-130) L 03/29/23 21:12 Glucose 125 mg/dL (65-115) H 03/29/23 21:12 Calculated Osmolality 278 mOsm/kg (285-295) L 03/29/23 21:12 Calcium 8.8 mg/dL (8.5-10.5) 03/29/23 21:12 Total Bilirubin 0.8 mg/dL (0.15-1.2) 03/29/23 21:12 AST 177 U/L (0-40) H 03/29/23 21:12 ALT 110 U/L (0-41) H 03/29/23 21:12 Alkaline Phosphatase 122 U/L (40-130) 03/29/23 21:12 Total Protein 7.3 g/dL (6.6-8.7) 03/29/23 21: Albumin 3.9 g/dL (3.5-5.2) 03/29/23 21: Globulin 3.4 g/dL (1.3-4.6) 03/29/23 21: Urine Color Yellow (Yellow) 03/29/23: Urine Appearance Clear (CLEAR) 03/29/23: Urine pH 5 (5-7) 03/29/23: Ur Specific [place] 1.010 (1.005-1.030) 03/29/23 21: Urine Protein Neg (Negative) 03/29/23 21: Urine Glucose (UA) Norm (Normal) 03/29/23: Urine Ketones Negative (Negative) 03/29/23: Urine Blood Neg (Negative) 03/29/23: Urine Nitrate Negative (Negative) 03/29/23: Urine Bilirubin Neg (Negative) 03/29/23: Urine Urobilinogen Norm mg/dL (Negative) 03/29/23: Ur Leukocyte Esterase Negative (Negative) 03/29/23: Salicylates < 0.3 mg/dL (3-10) L 03/29/23: Urine Opiates Screen Negative ng/mL (Negative) 03/29/23: Acetaminophen < 5.0 ug/mL (10-30) L 03/29/23 21: Ur Barbiturates Screen Negative ng/mL (Negative) 03/29/23: Ur Phencyclidine Scrn Negative ng/mL (Negative) 03/29/23: Ur Amphetamines Screen Negative ng/mL (Negative) 03/29/23: U Benzodiazepines Scrn Negative ng/mL (Negative) 03/29/23: Urine Cocaine Screen Negative ng/mL (Negative) 03/29/23: U Marijuana (THC) Screen Negative ng/mL (Negative) 03/29/23: Ethyl Alcohol 250 mg/dL (0-10) H 03/29/23 21: All radiology interpretation(s) finalized by discharge EKG Data EKG 1: Interpretation: Twelve-lead EKG obtained at 2138 and reviewed at 2138 demonstrates sinus rhythm with a ventricular rate of 80 bpm, [place] interval 167, QRS duration 93, QT 374, QTc [address] elevation or depression to demonstrate acute ischemia or infarction at present. Discharge Plan Discharge Patient Disposition: Admitted As Inpatient Clinical Impression: Chronic left hip pain, Alcohol abuse Alcohol intoxication Qualifiers: Complication of substance-induced condition: uncomplicated Qualified Code(s): F 10.920 - Alcohol use, unspecified with intoxication, uncomplicated Condition: Stable Coding Level of Care Code ED [employer] for Maryam Emmanuel
[2023-03-29 21:24] LABS: Basophils % 0.6 %; Hematocrit 36.7 % (37-53); Lymphocytes # 0.9 10^3/uL (0.8-4.8); Lymphocytes % 12.3 %; Mean Corpuscular HGB Conc 34.6 g/dL (30-55); Mean Corpuscular Hemoglobin 32.9 pg (27-33); Mean Corpuscular Volume 95.1 fl (82-101); Mean Platelet Volume 9.1 fL (7.4-10.4); Monocytes # 0.1 10^3/uL (0.2-0.9); Monocytes % 1.4 %; Neutrophils # 5.86 10^3/uL (1.8-7.7); Nucleated Red Blood Cells % 0 %; Platelet Count 326 10^3/cmm (157-399); Red Blood Count 3.86 10^6/uL (3.85-5.65); Red Cell Distribution Width 12.7 % (12.1-15.1)
[2023-03-29 21:37] LABS: Add Urine Microscopic? NO; Charge for UA Resulting for Rev
[2023-03-29 21:38] LABS: Bilirubin Urine Neg (Negative); Blood Urine Neg (Negative); Glucose Urine UA Norm (Normal); Ketones Urine Negative (Negative); Leukocyte Esterase Urine Negative (Negative); Nitrate Urine Negative (Negative); Protein Urine Neg (Negative); Urine Appearance Clear (CLEAR); Urine Color Yellow (Yellow); Urobilinogen Urine Norm (Negative); pH Urine 5 (5-7)
[2023-03-29 21:47] LABS: Amphetamines Screen Urine Negative (Negative); Barbiturates Screen Urine Negative (Negative); Benzodiazepines Screen Urine Negative (Negative); Cocaine Screen Urine Negative (Negative); Opiate Screen Urine Negative (Negative); PCP Screen Urine Negative (Negative); THC Screen Urine Negative (Negative)
[2023-03-29 22:28] LABS: Alanine Aminotransferase 110 U/L (0-41); Albumin Level 3.9 g/dL (3.5-5.2); Alcohol Level 250 mg/dL (0-10); Alkaline Phosphatase 122 U/L (40-130); Anion Gap 18.9 (5-19); Aspartate Amino Transferase 177 U/L (0-40); Blood Urea Nitrogen 15 mg/dL (6-20); Calcium 8.8 mg/dL (8.5-10.5); Carbon Dioxide 18 mmol/L (22-29); Chloride 100 mmol/L (98-107); Globulin 3.4 g/dL (1.3-4.6); Glomerular Filtration Rate 64.6 mL/min (90-130); Glucose 125 mg/dL (65-115); Osmolality Calculated 278 mOsm/kg (285-295); Potassium 3.9 mmol/L (3.5-5.1); Sodium 133 mmol/L (136-145); Total Bilirubin 0.8 mg/dL (0.15-1.2); Total Protein 7.3 g/dL (6.6-8.7)
[2023-03-29 22:30] LABS: Acetaminophen < 5.0 ug/mL (10-30); Salicylate < 0.3 mg/dL (3-10)
[2023-03-29] MEDS: haloperidol inj 5 mg/mL INJ 1 mL IVP (23:08)
[2023-03-29 23:45] VITALS: BP 117/74; PULSE 86; RESP 16; O2SAT 94
[2023-03-29 23:46] VITALS: BP 117/74; PULSE 86; RESP 16; O2SAT 94
[2023-03-29 23:47] LABS: Ammonia 36 umol/L (16-60)
[2023-03-29 23:56] VITALS: BMI 31.6
[2023-03-30] VITALS: BP 121/73; PULSE 84; RESP 17; TEMP 36.6; O2SAT 96
--- NOTE | 2023-03-30 00:41 | USR_ITS ---
PROCEDURE INFORMATION: Exam: US Abdomen, Limited; Right Upper Quadrant Exam date and time: 03/30/2023 6:33 AM Age: 47 years old Clinical indication: Condition or disease; Other: Transaminitis; Additional info: Transaminitis, alcohol abuse, evalaute for cirrhosis TECHNIQUE: Imaging protocol: Real time ultrasound of the abdomen with image documentation. Limited exam focused on the right upper quadrant. COMPARISON: CT abdomen con [id number] 05/10/2021 1:34 PM FINDINGS: Liver: The liver is enlarged, measuring at least 19 cm in length. There is diffusely increased echotexture within the liver compatible with hepatic steatosis. This attenuates the ultrasound beam and slightly limits evaluation of the deeper portions of the liver. Gallbladder: Gallbladder moderately distended but contains no stones and the wall thickening. Common bile duct measures 4 mm diameter. Biliary ducts: See Gallbladder finding. Pancreas: Pancreas obscured by bowel gas and not adequately visualized. Right kidney: Limited views of the right kidney show no hydronephrosis. US/US liver [id number] IMPRESSION: 1. Hepatomegaly and hepatic steatosis. 2. No evidence of cholelithiasis.
--- NOTE | 2023-03-30 00:49 | P.HP_ITS ---
Providers/Chief Complaint 2 Admitting Physician: Christophe Fernandez MD Primary Care Provider: KAREN Sloan Chief Complaint: SI/back pain History of Present Illness Bernardo Lyon is a 47 year old male with a past medical history of depression which warranted an MPU stay in February 2023, hypertension, recent hip surgery with cannulated screws in January 2023. Patient presents to the emergency room today brought in by his family due to altered mental status. His family seems to think that he was manic at home and this may have been related to receiving steroids recently for ongoing hip pain since his surgery. He is a daily alcohol drinker. Last drink was within the last 24 hours. He keeps repeating himself and is difficult to direct in conversation. Assessment is clouded by the fact that he is acutely intoxicated. He denies any fever or chills Denies any URI symptoms abdominal pain nausea vomiting or diarrhea Review of Systems 2 General: Reports: ROS unobtainable due to mental status Medications/Allergies Home Medications Medication Instructions Recorded Confirmed Last Taken Type amlodipine 2.5 mg tablet 2.5 mg PO DAILY 90 days #90 tabs 11/26/22 03/27/23 02/11/23 Rx losartan 100 mg tablet 100 mg PO DAILY 90 days #90 tabs 11/26/22 03/27/23 02/11/23 Rx pantoprazole 40 mg tablet,delayed 40 mg PO DAILY 03/14/23 03/27/23 Unknown History release (Protonix) gabapentin 300 mg capsule 300 mg PO TID neuropathy #90 caps 03/15/23 03/27/23 Unknown Rx thiamine mononitrate (vit B1) 100 100 mg PO DAILY 30 days #30 tabs 03/15/23 03/27/23 Unknown Rx mg tablet (Vitamin B-1 (mononitrate)) duloxetine 40 mg capsule,delayed 40 mg PO DAILY 30 days #30 caps 03/26/23 03/27/23 Unknown Rx release cyclobenzaprine 7.5 mg tablet 7.5 mg PO TID PRN muscle spasm #21 03/27/23 03/27/23 Unknown Rx tabs prednisone 20 mg tablet 50 mg (2.5 x 20 mg) PO .COMPLEX 8 03/27/23 03/27/23 Unknown Rx days #12 tabs Allergies Allergy/AdvReac Type Severity Reaction Status Date / Time codeine Allergy Severe shortness Verified 03/27/23 15:05 of breath avocado Allergy Unknown Verified 03/27/23 15:05 banana Allergy Unknown Verified 03/27/23 15:05 PFSH Acute 2 PFSH: Medical History Chronic low back pain with left-sided sciatica Closed subcapital fracture of femur HTN (hypertension) Depression Surgical History S/P ORIF (open reduction internal fixation) fracture DOS 02/12/23 - Open reduction internal fixation left subcapital hip fracture utilizing cannulated screws x 3. Family History Grandfather CAD (coronary artery disease) Father Cancer Lung disease copd Sister Lung disease asthma Denies family history of Diabetes Chronic kidney disease (CKD) Hypertension Stroke Social History Smoking and tobacco/nicotine status: current some day tobacco/nicotine user Alcohol intake: current Alcohol intake frequency: few times a month Alcohol type: beer Substance/Drug Use: never Lives independently: No Household members: spouse Marital status: Current occupational status: employed Sexually active: Yes Do you think of yourself as: Straight/Heterosexual Current gender identity: Male Vitals/I&O/Wt Last Vital Signs Temp 97.8 F 03/30/23 00:00 Pulse 84 03/30/23 00:00 Resp 17 03/30/23 00:00 BP 121/73 03/30/23 00:00 Pulse Ox 96 03/30/23 00:00 O2 Del Method Room Air 03/29/23 23:56 Weight last 48 hrs Weight 103.102 kg Weight 106.141 kg Physical Exam 2 Narrative: General: No acute distress, AO x1-2 HEENT: PERRLA, pupils bilaterally equal and reactive, pallors not present Chest: Normal vesicular breath sounds, no added sounds, equal good air entry bilaterally CVS: S1-S2 regular, no murmurs, no tachycardia, no gallops, no rubs Abdomen: Soft, nontender, no organomegaly, bowel sounds present Neuro: No focal deficits, no facial deformity, AO x3, power 5/5 in all limbs Data 03/29/23 21:12 03/29/23 21:12 A&P Assessment and plan (1) Altered behavior: (2) Acute alcohol intoxication: Plan Patient sent to the emergency room due to concerns from family that patient was acting manic. He has been repeating himself, very difficult to redirect. Family reported him having manic symptoms in which they thought might have been related to recent steroid use. CT head was without any acute findings Patient is intoxicated currently with blood alcohol level of 250. Urine drug screen otherwise negative. Mental status assessment is difficult given his acute alcohol intoxication. Admit in observation to [facility]. IV fluids normal saline at 75 an hour Initiate CIWA monitoring and closely monitor for alcohol withdrawal. Will likely have a better idea of patient's current depressive and/or manic symptoms once the effect of alcohol starts to wear off. May need psychiatry assessment thereafter. Note to have transaminitis on labs. No known history of cirrhosis. Liver ultrasound and hepatitis serology has been requested. Requested to check ammonia level which returned normal at 36. Attestations 2 Medical Necessity Statement*: Anticipate less than 2 midnight stay currently in view of alcohol intoxication, monitoring for alcohol withdrawal. Coding Level of Care Code Acute Code for Chg Fwd Diagnoses Altered behavior R46.89 Acute alcohol intoxication F10.929
[2023-03-30 01:00] VITALS: BP 121/73; PULSE 84; PULSE 89; RESP 17; TEMP 36.6; O2SAT 94
[2023-03-30 01:37] LABS: Hepatitis A Antibody IgM Non-Reactive (Nonreactive); Hepatitis B Core AB, Total Non-Reactive (Nonreactive); Hepatitis B Surface AB 44.8 (11.5-1000); Hepatitis B Surface Antigen Non-Reactive (Nonreactive); Hepatitis C Virus Antibody Non-Reactive (Nonreactive)
[2023-03-30 04:00] VITALS: BP 121/77; PULSE 97; RESP 17; TEMP 36.6; O2SAT 97
[2023-03-30 06:00] VITALS: PULSE 105
[2023-03-30 07:48] VITALS: BP 137/82; PULSE 83; RESP 22; TEMP 36.4; O2SAT 97
--- NOTE | 2023-03-30 09:09 | PC.NURSE ---
Patient pushed his call light and when I answered it. The patient stated, I want this box off of me. I don't need it and I am going to have to go home today because I do not have anyone to watch my kids tomorrow.
--- NOTE | 2023-03-30 09:23 | P.NPUHP_ITS ---
Providers/Chief Complaint 2 Admitting Physician: Christophe Fernandez MD Primary Care Provider: KAREN Sloan Chief Complaint: SI/back pain HPI NPU History of Present Illness Bernardo Lyon is a 47 year old male who presented to the emergency department with the following report: 47-year-old male presents to the emergency department via EMS personnel from his home. Patient states that on or about February 11, 2023 he slipped at his home and fractured his left hip. He states that he came to the hospital had it repaired and has been in pain since that time. He states he is been seen by his orthopedic physician for follow-up and ultimately recently presented to the emergency department here because of increased stress and pain and was admitted to the neuropsychiatric unit for additional evaluation treatment and care. Patient states that he has been taking his medications as prescribed and on a postoperative visit to his orthopedic physician was prescribed gabapentin for pain and also prednisone and B1 vitamin complex. Patient states that he feels that something is absolutely wrong as he feels like he is repeating himself during his conversations. He denies additional known injury or trauma. He does endorse daily alcohol use. The patient's significant other Anabella did call and speak with me and states that she is very concerned as he was acting very manic after starting the prednisone medication earlier today. The patient states his pain is a 10 out of 10. He states the pain is constant and aching and nothing makes it better and lying on his left side compressing the previously injured and repaired hip makes the pain better. Associated symptoms: Reports depression; Deny homicidal ideation or suicidal ideation Per his 03/15/2023 [facility] inpatient psychiatric discharge summary: Discharge Diagnosis (1) Major depressive disorder, single episode, severe: Status: Acute (2) Pain disorder associated with psychological and physical factors: Status: Acute (3) Alcohol use: Status: Acute Reason for Visit Reason for Visit: depression,SI Brief History: History of Present Illness Bernardo Lyon is a 47 year old male with no previous history of inpatient psychiatric hospitalizations who was brought to the emergency department after the patient's live-in girlfriend and mother of his children had been concerned about the patient's worsening depression and threats that the patient had made to hurt to kill himself. The patient was admitted to the neuropsychiatric unit for further evaluation and treatment. He reports that he has been increasingly frustrated and angry as he reports that he has been unable to manage the pain from his recent surgery in his hip in January of this year. The patient reports that he has been more depressed since his mother had approximately 5 months ago. He reports low energy, low motivation, and he Maria [place] Carmen, hypersomnia, increased crying spells, and problems with concentration. He reports no seasonal variability to his mood. He reports no diurnal variation. He does report having occasional suicidal thoughts but states that he is not had any plan. He did state that the pain after his surgery had complicated the matter as he has stated that he often feels like he would be better off not living if he had to manage the this amount of pain. He denied any history of gregorio. He denied any history of psychotic symptoms. He reports no history of drug or alcohol issues despite having a blood alcohol of 293 on admission. He had admitted to using alcohol that day to manage pain but described having no significant history of alcohol abuse with no history of alcohol-related withdrawals. He reports no change in tolerance or increase in consumption of alcohol. Inpatient psychiatric history: None Outpatient psychiatric history: He reports recently seeing a therapist or psychiatrist Nabil Wyatt who had prescribed Prozac to help him for depression although he had reported having discontinued this because of headaches. He also reported having been prescribed Wellbutrin XL twice a day to manage smoking cessation. He is currently not receiving any outpatient treatment. Medical history: Hip pain (L), back pain,, hypertension Surgical history: Recent open reduction internal fixation of left subcapital hip from fracture using cannulated screws x 3, Medications: Amlodipine 2.5 mg daily, losartan 100 mg daily, meloxicam 15 mg daily, Protonix 40 mg daily Allergies: Codeine, avocados, bananas Legal history: None Drug and alcohol history: None; he reports no history of rehabilitation nor does he report any chronic use of alcohol. Family psychiatric history: None reported Social history: Patient was born in [place] and raised in [place] by his biological parents. He reports having a relatively happy childhood. He had reported no history of any learning problems. He graduated from [employer]. He reports that he had no history of sexual physical or emotional abuse. 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 He reports that he has 6 children and lives currently on a property in [place] that he rents along with his girlfriend who is the father of his 4 younger children. He has 1 brother and 1 sister. He was raised in an intact family. He reports that his mother had of lung cancer and his father had of kidney cancer. He reports that he continues to smoke cigarettes on a daily basis. He has been from his previous that he had been to for the last 27 years. Meds NPU Home Medications Medication Instructions Recorded Confirmed Last Taken Type amlodipine 2.5 mg tablet 2.5 mg PO DAILY 90 days #90 tabs 11/26/22 03/30/23 02/11/23 Rx losartan 100 mg tablet 100 mg PO DAILY 90 days #90 tabs 11/26/22 03/30/23 02/11/23 Rx pantoprazole 40 mg tablet,delayed 40 mg PO DAILY 03/14/23 03/30/23 Unknown History release (Protonix) gabapentin 300 mg capsule 300 mg PO TID neuropathy #90 caps 03/15/23 03/30/23 Unknown Rx thiamine mononitrate (vit B1) 100 100 mg PO DAILY 30 days #30 tabs 03/15/23 03/30/23 Unknown Rx mg tablet (Vitamin B-1 (mononitrate)) duloxetine 40 mg capsule,delayed 40 mg PO DAILY 30 days #30 caps 03/26/23 03/30/23 Unknown Rx release cyclobenzaprine 7.5 mg tablet 7.5 mg PO TID PRN muscle spasm #21 03/27/23 03/30/23 Unknown Rx tabs prednisone 20 mg tablet 50 mg (2.5 x 20 mg) PO .COMPLEX 8 03/27/23 03/30/23 Unknown Rx days #12 tabs ibuprofen 200 mg capsule 400 mg PO QAM 03/30/23 03/30/23 Unknown History Allergies Allergy/AdvReac Type Severity Reaction Status Date / Time codeine Allergy Severe shortness Verified 03/27/23 15:05 of breath avocado Allergy Unknown Verified 03/27/23 15:05 banana Allergy Unknown Verified 03/27/23 15:05 PFSH NPU 2 PFSH: Medical History Chronic low back pain with left-sided sciatica Closed subcapital fracture of femur HTN (hypertension) Depression Surgical History S/P ORIF (open reduction internal fixation) fracture DOS 02/12/23 - Open reduction internal fixation left subcapital hip fracture utilizing cannulated screws x 3. Family History Grandfather CAD (coronary artery disease) Father Cancer Lung disease copd Sister Lung disease asthma Denies family history of Diabetes Chronic kidney disease (CKD) Hypertension Stroke Social History Smoking and tobacco/nicotine status: current some day tobacco/nicotine user Alcohol intake: current Alcohol intake frequency: few times a month Alcohol type: beer Substance/Drug Use: never Lives independently: No Household members: spouse Marital status: Current occupational status: employed Sexually active: Yes Do you think of yourself as: Straight/Heterosexual Current gender identity: Male Vitals/I&O/Wt Last Vital Signs Temp 97.5 F L 03/30/23 07:48 Pulse 83 03/30/23 07:48 Resp 22 H 03/30/23 07:48 BP 137/82 03/30/23 07:48 Pulse Ox 97 03/30/23 07:48 O2 Del Method Room Air 03/30/23 07:48 03/29/23 03/30/23 03/30/23 22:59 06:59 14:59 Intake Total 450 / 450 480 / 480 Balance 450 / 450 480 / 480 Weight last 48 hrs Weight 104.508 kg Weight 103.102 kg Weight 106.141 kg Data NPU 03/29/23 21:12 03/29/23 21:12 Involuntary Hold Information 2 96 Hour Hold: 96 Hour Involuntary Admission: Yes 96 Hour Hold Ending Date: 03/20/23 96 Hour Hold Ending Time: 20:05 Coding Level of Care Code Acute Code for Maryam Emmanuel
[2023-03-30] MEDS: thiamine 100 mg Tablet PO (09:30)
[2023-03-30] MEDS: pantoprazole DR 40 mg Tablet PO (09:30)
[2023-03-30] MEDS: multivitamin therapeutic Tablet 1 TAB PO (09:30)
[2023-03-30] MEDS: folic acid 1 mg Tablet PO (09:30)
[2023-03-30] MEDS: duloxetine 20 mg Capsule 40 MG PO (10:37)
--- NOTE | 2023-03-30 10:43 | PC.CHAP ---
Routine visit: Prayed over pat, pat requested prayers for his daughter as well. Wants to get home to his girls
--- NOTE | 2023-03-30 11:03 | PM.DCS ---
Discharge Providers Date of Admission: 03/29/23 23:13 Date of Discharge: March 30, 2023 Attending Provider at Admission: Christophe Fernandez MD Attending Provider at Discharge: Enmanuel Starks MD Primary Care Provider: KAREN Sloan Diagnoses at Discharge Discharge Diagnosis (1) Altered behavior: Status: Acute (2) Acute alcohol intoxication: Status: Acute Reason for Visit Reason for Visit: SI/back pain Brief History: Bernardo Lyon is a 47 year old male with a past medical history of depression which warranted an MPU stay in February 2023, hypertension, recent hip surgery with cannulated screws in January 2023. Patient presents to the emergency room today brought in by his family due to altered mental status. His family seems to think that he was manic at home and this may have been related to receiving steroids recently for ongoing hip pain since his surgery. He is a daily alcohol drinker. Last drink was within the last 24 hours. He keeps repeating himself and is difficult to direct in conversation. Assessment is clouded by the fact that he is acutely intoxicated. He denies any fever or chills Denies any URI symptoms abdominal pain nausea vomiting or diarrhea Hospital Course Hospital Course Patient was admitted to the hospital further evaluation and management of altered mental status which was thought to be in setting of alcohol intoxication along with new medication including high-dose steroid use. Patient was started on IV hydration and he was back to his baseline mentation by the next morning. He denied any suicidal or homicidal ideations. He has been discharged back home on his baseline home medications with advised to decrease the dose of steroid or hold off altogether if possible along with alcohol cessation. Physical Exam Narrative: General: No acute distress, AO x3 HEENT: PERRLA, pupils bilaterally equal and reactive, pallors not present Chest: Normal vesicular breath sounds, no added sounds, equal good air entry bilaterally CVS: S1-S2 regular, no murmurs, no tachycardia, no gallops, no rubs Abdomen: Soft, nontender, no organomegaly, bowel sounds present Neuro: No focal deficits, no facial deformity, AO x3, power 5/5 in all limbs Discharge Data Studies Completed and Pending Completed Studies During Hospitalization Category Date Time Status CT head wo con* [id number] Stat Cat Scan 03/29/23 21:13 [place] liver [id number] Routine Ultrasound 03/30/23 00:41 Completed Pending at discharge Category Date Time Status Complete Blood Count w/Auto AM LABS Lab 03/31/23 04:00 Ordered Comprehensive Metabolic Panel AM LABS Lab 03/31/23 04:00 Ordered Magnesium AM LABS Lab 03/31/23 04:00 Ordered Vitamin B1 (Thiamine),Blood Stat Lab 03/29/23 21:12 Received Radiology Impressions Head CT 03/29/23 21:13 IMPRESSION: No acute findings. Liver Ultrasound 03/30/23 00:41 IMPRESSION: 1. Hepatomegaly and hepatic steatosis. 2. No evidence of cholelithiasis. Laboratory Results WBC 6.90 10^3/uL (3.29-11.43) 03/29/23 21:12 RBC 3.86 10^6/uL (3.85-5.65) 03/29/23 21:12 Hgb 12.70 g/dL (11.27-16.99) 03/29/23 21:12 Hct 36.7 % (37-53) L 03/29/23 21:12 MCV 95.1 fl (82-101) 03/29/23 21:12 MCH 32.9 pg (27-33) 03/29/23 21:12 MCHC 34.6 g/dL (30-55) 03/29/23 21:12 RDW 12.7 % (12.1-15.1) 03/29/23 21:12 Plt Count 326 10^3/cmm (157-399) 03/29/23 21:12 MPV 9.1 fL (7.4-10.4) 03/29/23 21:12 Neut % (Auto) 85.0 % 03/29/23 21:12 Lymph % (Auto) 12.3 % 03/29/23 21:12 Lassen % (Auto) 1.4 % 03/29/23 21:12 Eos % (Auto) 0.0 % 03/29/23 21: Baso % (Auto) 0.6 % 03/29/23 21:12 Neut # (Auto) 5.86 10^3/uL (1.8-7.7) 03/29/23 21:12 Lymph # (Auto) 0.9 10^3/uL (0.8-4.8) 03/29/23 21:12 Lassen # (Auto) 0.1 10^3/uL (0.2-0.9) L 03/29/23 21:12 Eos # (Auto) 0.0 10^3/uL (0.0-0.8) 03/29/23 21:12 Baso # (Auto) 0.0 10^3/uL (0.0-0.1) 03/29/23 21:12 Nucleated RBC % (auto) 0 % 03/29/23 21:12 Nucleated RBCs # 0.0 /100WBC 03/29/23 21:12 Sodium 133 mmol/L (136-145) L 03/29/23 21:12 Potassium 3.9 mmol/L (3.5-5.1) 03/29/23 21:12 Chloride 100 mmol/L (98-107) 03/29/23 21:12 Carbon Dioxide 18 mmol/L (22-29) L 03/29/23 21:12 Anion Gap 18.9 (5-19) 03/29/23 21:12 BUN 15 mg/dL (6-20) 03/29/23 21:12 Creatinine 1.2 mg/dL (0.7-1.2) 03/29/23 21:12 GFR Calculation 64.6 mL/min (90-130) L 03/29/23 21:12 Glucose 125 mg/dL (65-115) H 03/29/23 21:12 Calculated Osmolality 278 mOsm/kg (285-295) L 03/29/23 21:12 Calcium 8.8 mg/dL (8.5-10.5) 03/29/23 21:12 Total Bilirubin 0.8 mg/dL (0.15-1.2) 03/29/23 21:12 AST 177 U/L (0-40) H 03/29/23 21:12 ALT 110 U/L (0-41) H 03/29/23 21:12 Alkaline Phosphatase 122 U/L (40-130) 03/29/23 21:12 Ammonia 36 umol/L (16-60) 03/29/23 23:20 Total Protein 7.3 g/dL (6.6-8.7) 03/29/23 21:12 Albumin 3.9 g/dL (3.5-5.2) 03/29/23 21:12 Globulin 3.4 g/dL (1.3-4.6) 03/29/23 21: Folate 3.0 ng/mL (4.5-32.2) L 03/29/23 21: Urine Color Yellow (Yellow) 03/29/23: Urine Appearance Clear (CLEAR) 03/29/23 21: Urine pH 5 (5-7) 03/29/23 21: Ur Specific [place] 1.010 (1.005-1.030) 03/29/23: Urine Protein Neg (Negative) 03/29/23 21: Urine Glucose (UA) Norm (Normal) 03/29/23 21: Urine Ketones Negative (Negative) 03/29/23: Urine Blood Neg (Negative) 03/29/23: Urine Nitrate Negative (Negative) 03/29/23: Urine Bilirubin Neg (Negative) 03/29/23: Urine Urobilinogen Norm mg/dL (Negative) 03/29/23: Ur Leukocyte Esterase Negative (Negative) 03/29/23: Salicylates < 0.3 mg/dL (3-10) L 03/29/23 21: Urine Opiates Screen Negative ng/mL (Negative) 03/29/23: Acetaminophen < 5.0 ug/mL (10-30) L 03/29/23: Ur Barbiturates Screen Negative ng/mL (Negative) 03/29/23: Ur Phencyclidine Scrn Negative ng/mL (Negative) 03/29/23: Ur Amphetamines Screen Negative ng/mL (Negative) 03/29/23: U Benzodiazepines Scrn Negative ng/mL (Negative) 03/29/23: Urine Cocaine Screen Negative ng/mL (Negative) 03/29/23: U Marijuana (THC) Screen Negative ng/mL (Negative) 03/29/23: Ethyl Alcohol 250 mg/dL (0-10) H 03/29/23 21: Hepatitis A IgM Ab Non-reactive (Nonreactive) 03/29/23: Hep Bs Antigen Non-reactive (Nonreactive) 03/29/23: Hep Bs Antibody 44.8 (11.5-1000) 03/29/23 21: Hep B Core Total Ab Non-reactive (Nonreactive) 03/29/23 21:12 Hepatitis C Antibody Non-reactive (Nonreactive) 03/29/23 21:12 Vitals Last Vital Signs Temp 97.5 F L 03/30/23 07:48 Pulse 83 03/30/23 07:48 Resp 22 H 03/30/23 07:48 BP 137/82 03/30/23 07:48 Pulse Ox 97 03/30/23 07:48 O2 Del Method Room Air 03/30/23 07:48 Discharge Plan Discharge Patient Disposition: Home Condition: Stable Prescriptions: Continued cyclobenzaprine 7.5 mg tablet 7.5 mg PO TID PRN (Reason: muscle spasm) Qty: 21 0RF amlodipine 2.5 mg tablet 2.5 mg PO DAILY 90 Days Qty: 90 0RF losartan 100 mg tablet 100 mg PO DAILY 90 Days Qty: 90 0RF duloxetine 40 mg capsule,delayed release(DR/EC) 40 mg PO DAILY 30 Days Qty: 30 0RF pantoprazole [Protonix] 40 mg tablet,delayed release (DR/EC) 40 mg PO DAILY thiamine mononitrate (vit B1) [Vitamin B-1 (mononitrate)] 100 mg Tablet 100 mg PO DAILY 30 Days Qty: 30 1RF gabapentin 300 mg capsule 300 mg PO TID Qty: 90 1RF ibuprofen 200 mg Capsule 400 mg PO QAM No Action prednisone 20 mg tablet 50 mg PO .COMPLEX 8 Days Qty: 12 0RF Rx Instructions: 50 mg (2.5 tabs) orally days 1-2, 40 mg (2 tabs) days 3-4, 20 mg (1 tab) days 5-6, 10 mg (0.5 tab) days 7-8. Discharge Orders: Discharge Order (Routine); Ordered 03/30/23 Ordered By: Enmanuel Starks Referrals: Juliano Wyatt, [employer] [Primary Care Provider] - 7-10 days (Please call your primary care provider and follow up in 7 to 10 days. ) Discharge Diet: Regular Discharge Activity: Resume usual activity and Increase activity as tolerated Patient Instructions: Alcohol Abuse, Alcohol Intoxication, Opioid Safety Discharge Attestations Time Spent in Discharge Care*: greater than 30 min Specific Discharge Activities: educating patient, discussing with pcp/other providers, discussing with housing case manager/social workers/dc planners, documenting/other paperwork and evaluating patient/reviewing data Status at Discharge: Cognitive status at discharge: cognitively intact, Behavioral status at discharge: cooperative, Functional status at discharge: independent ambulation, Overall status at discharge: patient is back to baseline Quality Metrics Clinical Quality Measures [ No reported AMI, CVA or VTE this stay] Coding Level of Care Code 72922 Total time (in minutes) for Discharge: 60 Diagnoses Altered behavior R46.89 Acute alcohol intoxication F10.929
[2023-03-30 11:16] VITALS: BP 137/82; PULSE 83; RESP 22; TEMP 36.4; O2SAT 97
[2023-04-04 23:05] LABS: Vitamin B1 (Thiamine),Blood 178 nmol/L (78-185)
== END 2023-03-30 11:53 | disposition home or self-care (01) ==
LOC: ER 21:31 → MEDSURG 23:15
PROVIDERS: Student in an Organized Health Care Education/Training Program; Admitting Provider Psychiatry & Neurology Psychiatry; Emergency Provider Internal Medicine; PCP Registered Nurse; Visit Provider Student in an Organized Health Care Education/Training Program
DX: F10.929 Alcohol use, unspecified with intoxication, unspecified (principal); Y90.8 Blood alcohol level of 240 mg/100 ml or more; I10 Essential (primary) hypertension; Z98.890 Other specified postprocedural states; Z79.52 Long term (current) use of systemic steroids; R16.0 Hepatomegaly, not elsewhere classified; K76.0 Fatty (change of) liver, not elsewhere classified; F32.A Depression, unspecified; F17.200 Nicotine dependence, unspecified, uncomplicated
CPT/HCPCS: 36415; 70450; 76705; 80053; 80306; 80307; 81003; 82140; 82746; 84425; 85025; 86705; 86706; 86709; 86803; 87340; 93005; 96361; 96372; 96374; 99285; G0378; J1630; J3411

== ENCOUNTER → 2023-04-25 13:35 | Outpatient (BNVA) | payer MEDICAID, SELFPAY | PROVIDERS: PCP Registered Nurse; Visit Provider Nurse Practitioner | DX: Z98.890 Other specified postprocedural states (principal); M54.42 Lumbago with sciatica, left side; G89.29 Other chronic pain; S72.012S Unspecified intracapsular fracture of left femur, sequela; X58.XXXS Exposure to other specified factors, sequela; F33.1 Major depressive disorder, recurrent, moderate | CPT/HCPCS: 73502 ==

== ENCOUNTER → 2023-05-01 10:33 | Outpatient (BNVA) | payer MEDICAID, SELFPAY | PROVIDERS: PCP Registered Nurse; Visit Provider Registered Nurse | DX: I10 Essential (primary) hypertension (principal); F41.9 Anxiety disorder, unspecified | CPT/HCPCS: 80053; 82607; 84402; 84403 ==

== ENCOUNTER 2023-06-10 14:05 | Outpatient (CLI) | payer BC, MEDICAID, SELFPAY ==
--- NOTE | 2023-06-10 14:30 | XR_ITS ---
WS: [id number] SCREENING DEXA SCAN [place] CLINICAL INFORMATION: S72.009A - Fracture of unspecified part of neck of unspec... COMPARISON: None. FINDINGS: The L2-L4 bone mineral density measures 1.06. This corresponds to a T score score of -1.4 and Z score of -2.0. Left forearm bone mineral density measures 0.83. This corresponds to a T score of -1.5 and Z score of -1.5. Right femoral neck bone mineral density measures 0.94. This corresponds to a T score -1.1 of and Z sc ore of -1.3. IMPRESSION: Osteopenia lumbar spine. Osteopenia RIGHT femoral neck. Osteopenia LEFT forearm. Patient's FRAX calculated 10 year probability for major osteoporotic fracture is 4.6% and osteoporoti c hip fracture is 0.5%.
== END 2023-06-10 14:06 | disposition home or self-care (01) ==
LOC: RAD 14:06
PROVIDERS: PCP Registered Nurse; Visit Provider Registered Nurse
DX: S72.009A Fracture of unspecified part of neck of unspecified femur, initial encounter for closed fracture (principal); X58.XXXA Exposure to other specified factors, initial encounter; M85.89 Other specified disorders of bone density and structure, multiple sites
CPT/HCPCS: 77080

== ENCOUNTER → 2023-08-14 14:52 | Outpatient (BNVA) | payer BC, MEDICAID, SELFPAY | PROVIDERS: PCP Registered Nurse; Visit Provider Specialist | DX: M16.12 Unilateral primary osteoarthritis, left hip (principal); S72.012S Unspecified intracapsular fracture of left femur, sequela; X58.XXXS Exposure to other specified factors, sequela | CPT/HCPCS: 73502 ==

== ENCOUNTER 2023-09-09 13:30 | Outpatient (CLI) | payer BC, MEDICAID, SELFPAY ==
--- NOTE | 2023-09-09 13:45 | MR_ITS ---
WS: [id number] MRI OF THE PELVIS WITHOUT GADOLINIUM ENHANCEMENT INDICATION: Bilateral hip pain. History of surgical pinning. TECHNIQUE: Coronal T1 and STIR axial T1-T2 and sagittal STIR imaging FINDINGS: Cannulated screw fixation LEFT hip. Susceptibility artifact from cannulated screw fixation degrades images of the LEFT femur. Femoral head and neck not well visualized. Small amount of bone ma rrow edema is visualized in the LEFT acetabulum. Advanced degenerative narrowing RIGHT hip with evidence of avascular necrosis in the RIGHT femoral he ad. Diffuse edema in the RIGHT femoral head and neck extending into the proximal femoral shaft. Assoc iated reactive bone marrow edema in the RIGHT acetabulum. Normal bone marrow signal in the sacrum and iliac crest. Normal bone marrow signal in the pubic rami. Normal sigmoid colon. No inguinal lymphadenopathy. Normal bone marrow signal in the sacrum and coccy x. MR/MR pelvis wo con* [id number] IMPRESSION: Postoperative changes cannulated screw fixation LEFT femoral head a nd neck. This degrades images of the femoral head. Small amount of edema in the LEFT acetabulum. 1. 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 Associated edema in the RIGHT acetabulum. No significant subchondral collap se. Small RIGHT joint effusion. 2. Moderate to advanced degenerative narrowing RIGHT hip. 3. No other acute findings.
== END 2023-09-09 13:31 | disposition home or self-care (01) ==
PROVIDERS: PCP Registered Nurse; Visit Provider Specialist
DX: M16.11 Unilateral primary osteoarthritis, right hip (principal); S72.002A Fracture of unspecified part of neck of left femur, initial encounter for closed fracture; S72.012S Unspecified intracapsular fracture of left femur, sequela; M87.051 Idiopathic aseptic necrosis of right femur; Z96.698 Presence of other orthopedic joint implants
CPT/HCPCS: 72195

== ENCOUNTER → 2023-10-09 12:19 | Outpatient (BNVA) | payer BC, MEDICAID, SELFPAY | PROVIDERS: PCP Registered Nurse; Visit Provider Specialist | DX: M87.051 Idiopathic aseptic necrosis of right femur (principal); M16.11 Unilateral primary osteoarthritis, right hip; M85.851 Other specified disorders of bone density and structure, right thigh | CPT/HCPCS: 73502 ==

== ENCOUNTER 2023-11-08 23:31 | Observation (INO) | payer BC, MEDICAID, SELFPAY ==
--- NOTE | 2023-11-08 23:32 | ECG_ITS ---
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 Measurements Intervals Elizabeth Rate: 89 P: 58 OK: 173 QRS: 84 QRSD: 94 T: 35 QT: 361 QTc: 439 Interpretive Statements SINUS RHYTHM NONSPECIFIC T-WAVE ABNORMALITY Compared to ECG 03/29/2023 21:39:40 T-wave abnormality now present Myocardial infarct finding no longer present Electronically Signed On 11-09-2023 18:45:21 CDT by Kyle Brady M.D. [email or web address] on [id number]
[2023-11-08 23:33] VITALS: BP 101/81; PULSE 92; RESP 18; TEMP 36.2; O2SAT 99; BMI 34.8
--- NOTE | 2023-11-08 23:40 | W.ED.CHESTPA ---
HPI - Chest Pain General: Chief Complaint: Chest Pain Stated Complaint: CP Time Seen by Provider: 11/08/23 23:34 History of Present Illness: Patient presents to the ER via EMS with complaints of chest pain. He said his chest pain off and on for over the last week. It is substernal and radiates into his left arm and is a burning type pain. Patient has had this before about 12 years ago and he said it was a panic attack at that time. Patient has been drinking alcohol tonight. Patient does not have a history of AK, stents, CHF, patient is on no anticoagulation patient is pain-free upon arrival. EMS did give patient 3 and 24 mg aspirin and 1 nitro. Related Data Home Medications Medication Instructions Recorded Confirmed glucosamine sulfate 500 mg tablet 500 mg PO DAILY 09/23/23 10/27/23 (Glucosamine) vitamin B complex 1 tab PO DAILY 09/23/23 10/27/23 Previous Rx's Medication Instructions Recorded pantoprazole 40 mg tablet,delayed 40 mg PO DAILY 90 days #90 tabs 05/01/23 release (Protonix) celecoxib 100 mg capsule (Celebrex) 100 mg PO BID #180 caps 05/20/23 cyclobenzaprine 10 mg tablet 10 mg PO DAILY 30 days #30 tabs 09/26/23 amlodipine 10 mg tablet 10 mg PO DAILY 90 days #30 tabs 10/25/23 duloxetine 60 mg capsule,delayed See Rx Instructions .Route 10/25/23 release .COMPLEX #30 caps losartan 100 mg tablet See Rx Instructions .Route 10/25/23 .COMPLEX #30 tabs tramadol 50 mg tablet 50 mg PO DAILY 30 days #30 tabs 10/25/23 Allergies Allergy/AdvReac Type Severity Reaction Status Date / Time codeine Allergy Severe shortness Verified 10/25/23 11:26 of breath avocado Allergy Unknown Verified 10/25/23 11:26 banana Allergy Unknown Verified 10/25/23 11:26 Review of Systems General: Reports: 10 or more systems reviewed and unremarkable except in HPI and below PFSH ED PFSH: Medical History Osteoarthritis of left hip Chronic low back pain with left-sided sciatica Closed subcapital fracture of femur HTN (hypertension) Depression Surgical History S/P ORIF (open reduction internal fixation) fracture DOS 02/12/23 - Open reduction internal fixation left subcapital hip fracture utilizing cannulated screws x 3. Family History Grandfather CAD (coronary artery disease) Father Cancer Lung disease copd Sister Lung disease asthma Denies family history of Diabetes Chronic kidney disease (CKD) Hypertension Stroke Social History Smoking and tobacco/nicotine status: current some day tobacco/nicotine user Alcohol intake: current Alcohol intake frequency: few times a month Alcohol type: beer Substance/Drug Use: never Lives independently: No Household members: spouse Marital status: Current occupational status: employed Sexually active: Yes Do you think of yourself as: Straight/Heterosexual Current gender identity: Male Physical Exam Const: COMMON NORMALS: no acute distress, average body habitus, patient oriented x3, no limitations, healthy appearing, alert and well nourished HENMT: COMMON NORMALS: normocephalic, atraumatic, hearing grossly normal bilaterally, external ears normal, Normal external nose present and moist oral mucous membranes HEAD & SCALP: normocephalic and atraumatic NOSE: Normal external nose present EXTERNAL EAR: Yes external ears normal Neck/C-Spine: COMMON NORMALS: no JVD Chest: COMMONS NORMALS: normal inspection of the chest and normal palpation of entire chest wall Resp: COMMON NORMALS: normal respiratory effort, No retractions, No use of accessory muscles and clear to auscultation bilaterally AUSCULTATION: clear to auscultation bilaterally Cardio: COMMON NORMALS: no JVD, regular rate, regular rhythm, S1 normal heart sound present, S2 normal heart sound present, No gallops present (Cardio), No clicks present (Cardio), No murmurs present (Cardio) and No rub (Cardio) RATE: regular rate RHYTHM: regular rhythm HEART SOUNDS: S1 normal heart sound present and S2 normal heart sound present GI: COMMON NORMALS: Normal to inspection, nondistended, normoactive bowel sounds present, Soft to palpation, non-tender, No hepatosplenomegaly present and no masses PALPATION: Yes Soft to palpation and Yes No hepatosplenomegaly present Neuro: COMMON NORMALS: patient oriented x3 SENSORIUM/ORIENTATION: Yes alert Course Vital Signs: Vital signs: Vital Signs Temperature 97.1 F L 11/08/23 23:33 Pulse Rate 92 11/08/23 23:33 Respiratory Rate 18 11/08/23 23:33 Blood Pressure 101/81 11/08/23 23:33 Pulse Oximetry 99 11/08/23 23:33 Oxygen Delivery Me thod Room Air 11/08/23 23:33 MDM - Chest Pain Medical Decision Making Patient presents with chest pain. Patient chest pain free upon arrival is the first EKG was normal, however second EKG showed flipped T waves in V3 4 5 and 6, troponins both were normal at 8 and 8.5. Patient's alcohol was elevated at 258. Patient to get mildly hypoxic during sleeping and required 2 L of oxygen to keep saturation above 92%. These results was discussed with the patient who is willing to come in the hospital for further testing and Dr. Jimenez was consulted who agreed to place in obs for further evaluation. Differential Diagnosis Unlikely acute massive pulmonary embolism, acute respiratory failure, acute myocardial infarction, cardiac arrest or sudden cardiac Medical Records I reviewed the patient's medical records. Lab Data I reviewed the patient's lab results. 11/08/23 23:49 11/08/23 23:49 Laboratory Results WBC 9.13 10^3/uL (3.29-11.43) 11/08/23 23:49 RBC 3.89 10^6/uL (3.85-5.65) 11/08/23 23:49 Hgb 13.00 g/dL (11.27-16.99) 11/08/23 23:49 Hct 38.5 % (37-53) 11/08/23 23:49 MCV 99.0 fl (82-101) 11/08/23 23:49 MCH 33.4 pg (27-33) H 11/08/23 23:49 MCHC 33.8 g/dL (30-55) 11/08/23 23:49 RDW 13.4 % (12.1-15.1) 11/08/23 23:49 Plt Count 332 10^3/cmm (157-399) 11/08/23 23:49 MPV 8.9 fL (7.4-10.4) 11/08/23 23:49 Neut % (Auto) 51.9 % 11/08/23 23:49 Lymph % (Auto) 33.6 % 11/08/23 23:49 Sequoyah % (Auto) 8.1 % 11/08/23 23:49 Eos % (Auto) 3.0 % 11/08/23 23:49 Baso % (Auto) 1.5 % 11/08/23 23:49 Neut # (Auto) 4.74 10^3/uL (1.8-7.7) 11/08/23 23:49 Lymph # (Auto) 3.1 10^3/uL (0.8-4.8) 11/08/23 23:49 Sequoyah # (Auto) 0.7 10^3/uL (0.2-0.9) 11/08/23 23:49 Eos # (Auto) 0.3 10^3/uL (0.0-0.8) 11/08/23 23:49 Baso # (Auto) 0.1 10^3/uL (0.0-0.1) 11/08/23 23:49 Nucleated RBC % (auto) 0 % 11/08/23 23:49 Nucleated RBCs # 0.0 /100WBC 11/08/23 23:49 Sodium 137 mmol/L (136-145) 11/08/23 23:49 Potassium 3.6 mmol/L (3.5-5.1) 11/08/23 23:49 Chloride 99 mmol/L (98-107) 11/08/23 23:49 Carbon Dioxide 22 mmol/L (22-29) 11/08/23 23:49 Anion Gap 19.6 (5-19) H 11/08/23 23:49 BUN 13 mg/dL (6-20) 11/08/23 23:49 Creatinine 1.3 mg/dL (0.7-1.2) H 11/08/23 23:49 GFR Calculation 58.9 mL/min (90-130) L 11/08/23 23:49 Glucose 113 mg/dL (65-115) 11/08/23 23:49 Calculated Osmolality 285 mOsm/kg (285-295) 11/08/23 23:49 Calcium 8.8 mg/dL (8.5-10.5) 11/08/23 23:49 Troponin T Baseline 8 ng/L (0-15) 11/08/23 23:49 Troponin T 120 Minute 8.53 ng/L (0-15) 11/09/23 01:07 Delta Troponin T 0.53 ABS# (0-10) 11/09/23 01:07 Ethyl Alcohol 258 mg/dL (0-10) H 11/08/23 23:49 All radiology interpretation(s) finalized by discharge Discharge Plan Discharge Patient Disposition: Placed in Observation Clinical Impression: Alcohol intoxication, Acute electrocardiogram changes Chest pain Qualifiers: Chest pain type: unspecified Qualified Code(s): R07.9 - Chest pain, unspecified Coding Level of Care Code ED Drive In Waiter/Waitress for Maryam Emmanuel
[2023-11-08] MEDS: sodium chloride 0.9% 1,000 ML 999 ML IV (23:58)
[2023-11-09] VITALS (7 sets, daily range): BP systolic 110–136; BP diastolic 72–82; PULSE 74–100; RESP 15–18; TEMP 36.4–36.6; O2SAT 96–98; BMI 35.4
[2023-11-09 00:08] LABS: Basophils # 0.1 10^3/uL (0.0-0.1); Basophils % 1.5 %; Eosinophils # 0.3 10^3/uL (0.0-0.8); Hematocrit 38.5 % (37-53); Lymphocytes # 3.1 10^3/uL (0.8-4.8); Lymphocytes % 33.6 %; Mean Corpuscular HGB Conc 33.8 g/dL (30-55); Mean Corpuscular Hemoglobin 33.4 pg (27-33); Mean Platelet Volume 8.9 fL (7.4-10.4); Monocytes # 0.7 10^3/uL (0.2-0.9); Monocytes % 8.1 %; Neutrophils # 4.74 10^3/uL (1.8-7.7); Neutrophils % 51.9 %; Nucleated Red Blood Cells % 0 %; Platelet Count 332 10^3/cmm (157-399); Red Blood Count 3.89 10^6/uL (3.85-5.65); Red Cell Distribution Width 13.4 % (12.1-15.1); White Blood Count 9.13 10^3/uL (3.29-11.43)
[2023-11-09 00:13] LABS: Troponin(5th) Baseline 8 ng/L (0-15)
[2023-11-09 00:14] LABS: Alcohol Level 258 mg/dL (0-10); Blood Urea Nitrogen 13 mg/dL (6-20); Calcium 8.8 mg/dL (8.5-10.5); Carbon Dioxide 22 mmol/L (22-29); Chloride 99 mmol/L (98-107); Creatinine Clr Calc Pharmacy 88.9915; Glomerular Filtration Rate 58.9 mL/min (90-130); Glucose 113 mg/dL (65-115); Osmolality Calculated 285 mOsm/kg (285-295); Sodium 137 mmol/L (136-145)
[2023-11-09 00:17] LABS: Anion Gap 19.6 (5-19); Potassium 3.6 mmol/L (3.5-5.1)
--- NOTE | 2023-11-09 01:32 | ECG_ITS ---
[facility] Test Date: 2023-11-09 Pat Name: Bernardo Lyon Department: Room: Gender: Male Title Manager: : 1975 Requested By: Иван Boyd Order Number: [id number] Silvana MD: Kyle Brady M.D. Measurements Intervals [place] Rate: 84 P: 55 [place]: 177 QRS: 71 QRSD: 98 T: 23 QT: 362 QTc: 428 Interpretive Statements SINUS RHYTHM MODERATE T-WAVE ABNORMALITY, CONSIDER ANTEROLATERAL ISCHEMIA [-0.1+ mV T-WAVE IN V3-V6] MODERATE T-WAVE ABNORMALITY, CONSIDER INFERIOR ISCHEMIA [-0.1+ mV T-WAVE IN II/aVF] Compared to ECG 11/08/2023 23:32:41 Possible ischemia now present T-wave abnormality still present Electronically Signed On 11-09-2023 18:51:34 CDT by Kyle Brady M.D. [id number]
[2023-11-09 01:40] LABS: Troponin 5 2HR 8.53 ng/L (0-15); Troponin 5 2HR Delta 0.53 ABS# (0-10)
--- NOTE | 2023-11-09 04:06 | P.HP_ITS ---
Providers/Chief Complaint 2 Admitting Physician: Caren Jimenez MD Primary Care Provider: KAREN Sloan Chief Complaint: CP History of Present Illness Bernardo Lyon is a 47 year old male with a history of alcohol abuse, presented to the emergency room today with chief complaints of chest pain. Patient states that he has been having on and off chest discomfort located in the middle Of the chest, and radiating down to his left arm up to the elbow. He has not noticed any correlation with exertion. He has a history of reflux for which she has been taking Protonix recently. States there has been no interruption in his medications. Denies any known history of coronary artery disease. Denies any history of dyspnea. He is noted to be wheezing in the room. Carries a past medical history of COPD, takes albuterol inhaler as needed at home. States that a few days ago he aspirated while consuming a Flexeril tablet and has noticed himself to be more wheezy since then. He is a daily smoker. NO h/o DVT/ PE. Review of Systems 2 General: Reports: 10 or more systems reviewed and unremarkable except in HPI and below Const: Denies: fever(s), chills or body aches Eyes: Denies: change in vision, blurry vision or photophobia ENMT: Reports: hoarseness; Denies: throat pain, enlarged tonsils, odynophagia or nasal congestion Card: Denies: chest pain, palpitations, irregular heart rhythm, edema, swelling of feet/ankles, lightheadedness, pre-syncope, dyspnea on exertion or orthopnea Resp: Denies: dyspnea, productive cough, non-productive cough, wheezing, stridor, pain on inspiration, change in phlegm color, hemoptysis or chest congestion GI: Denies: abdominal pain, nausea, vomiting, hematemesis, coffee ground emesis, dysphagia, heartburn, diarrhea, constipation, GI cramping, change in stool character, hematochezia or melena : Denies: flank pain, dysuria, urinary frequency, urinary urgency, urinary hesitancy or hematuria Musc: Denies: neck pain, back pain, extremity pain, joint swelling, joint warmth or deformity Neuro: Denies: headache(s), numbness in extremities, weakness in extremities, sensory changes, difficulty walking, frequent falls, dizziness, vertigo, behavioral changes, Slurred speech present or seizure-like activity Psych: Denies: anxiety, depression, suicidal ideation or homicidal ideation Endo: Denies: polyuria, polydipsia, tired all the time, cold intolerance or hot flashes Trevor/Lymph: Denies: easy bruising or easy bleeding Medications/Allergies Home Medications Medication Instructions Recorded Confirmed Last Taken Type pantoprazole 40 mg tablet,delayed 40 mg PO DAILY 90 days #90 tabs 05/01/23 11/09/23 11/08/23 Rx release (Protonix) celecoxib 100 mg capsule (Celebrex) 100 mg PO BID #180 caps 05/20/23 11/09/23 11/08/23 Rx vitamin B complex 1 tab PO DAILY 09/23/23 11/09/23 11/08/23 History amlodipine 10 mg tablet 10 mg PO DAILY 90 days #30 tabs 10/25/23 11/09/23 11/08/23 Rx losartan 100 mg tablet See Rx Instructions .Route 10/25/23 11/09/23 11/08/23 Rx .COMPLEX #30 tabs cyclobenzaprine 10 mg tablet 10 mg PO BEDTIME PRN Muscle Spasm 11/09/23 11/09/23 11/08/23 History duloxetine 60 mg capsule,delayed 60 mg PO DAILY 11/09/23 11/09/23 11/08/23 History release tramadol 50 mg tablet 50 mg PO BEDTIME 11/09/23 11/09/23 11/08/23 History Allergies Allergy/AdvReac Type Severity Reaction Status Date / Time codeine Allergy Severe shortness Verified 10/25/23 11:26 of breath avocado Allergy Unknown Verified 10/25/23 11:26 banana Allergy Unknown Verified 10/25/23 11:26 PFSH Acute 2 PFSH: Medical History Osteoarthritis of left hip Chronic low back pain with left-sided sciatica Closed subcapital fracture of femur HTN (hypertension) Depression Surgical History S/P ORIF (open reduction internal fixation) fracture DOS 02/12/23 - Open reduction internal fixation left subcapital hip fracture utilizing cannulated screws x 3. Family History Grandfather CAD (coronary artery disease) Father Cancer Lung disease copd Sister Lung disease asthma Denies family history of Diabetes Chronic kidney disease (CKD) Hypertension Stroke Social History Smoking and tobacco/nicotine status: current some day tobacco/nicotine user Alcohol intake: current Alcohol intake frequency: few times a month Alcohol type: beer Substance/Drug Use: never Lives independently: No Household members: spouse Marital status: Current occupational status: employed Sexually active: Yes Do you think of yourself as: Straight/Heterosexual Current gender identity: Male Vitals/I&O/Wt Last Vital Signs Temp 97.1 F L 11/08/23 23:33 Pulse 92 11/08/23 23:33 Resp 18 11/08/23 23:33 BP 101/81 11/08/23 23:33 Pulse Ox 99 11/08/23 23:33 O2 Del Method Room Air 11/09/23 02:28 11/08/23 11/08/23 11/09/23 14:59 22:59 06:59 Intake Total 1000 / 1000 Balance 1000 / 1000 Weight last 48 hrs Weight 115.212 kg Weight 113.398 kg Physical Exam 2 Narrative: General: No acute distress, AO x3 HEENT: PERRLA, pupils bilaterally equal and reactive, pallors not present Chest: Normal vesicular breath sounds, no added sounds, equal good air entry bilaterally CVS: S1-S2 regular, no murmurs, no tachycardia, no gallops, no rubs Abdomen: Soft, nontender, no organomegaly, bowel sounds present Neuro: No focal deficits, no facial deformity, AO x3, power 5/5 in all limbs a. Data 11/08/23 23:49 11/08/23 23:49 A&P Assessment and plan (1) Chest pain: 47-year-old male with past medical history as described above currently presenting with chest pain radiating into left arm. Does have some risk factors for cardiac disease including hypertension, chronic smoking. EKG showing nonspecific ST-T wave changes in leads II and III, appearing to be more pronounced on subsequent to our EKG. Baseline troponin and 2-hour troponin unchanged at 8. Patient states his chest pain was relieved by administration of nitro by EMS. He has received aspirin 325 mg daily. Will admit patient to hospital on MedSurg Telemetry monitoring Await 6-hour troponin for trend. May need stress test for further assessment of anginal chest pain Check echocardiogram Alternate differential includes PE; screen D-dimer, if elevated will perform CTA chest. Differential also includes GERD given patient's history of chronic alcohol use. Protonix 40 mg p.o. twice daily for the same. Reports a history of aspiration of medication about a week ago following which she has noted intermittent wheezing. Carries a diagnosis of COPD. Check chest x-ray to assess for any underlying aspiration pneumonia. Albuterol as needed for wheezing check COVID PCR Qualifiers: Chest pain type: unspecified Qualified Code(s): R07.9 - Chest pain, unspecified (2) Alcohol intoxication: blood glucose level 258 high risk for alcohol withdrawal CIWA monitoring per protocol Vitamin B1 100mg po daily (3) Acute electrocardiogram changes: as above Plan DVT ppx: Lovenox 40mg s/c Full code Attestations 2 Medical Necessity Statement*: less than 2 midnight stay anticipated at this time Coding Level of Care Code Acute Code for Chg Fwd High MDM includes number and complexity of problems actively addressed during encounter, amount and/or complexity of data reviewed/ordered and described risk of complication, morbidity or mortality of management as documented Diagnoses Chest pain R07.9 Chest pain type: unspecified Alcohol intoxication F10.929 Acute electrocardiogram changes R94.31
[2023-11-09] MEDS: nicotine 14 mg Patch 1 PATCH TRANSDERMA ×2 (04:47→08:35)
[2023-11-09] MEDS: sodium chloride 0.9% 1,000 ML 75 ML IV (04:47)
[2023-11-09] MEDS: acetaminophen 325 mg Tablet 650 MG PO ×2 (04:52→11:21)
--- NOTE | 2023-11-09 05:32 | ECG_ITS ---
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 Measurements Intervals [place] Rate: 80 P: 54 MT: 164 QRS: 80 QRSD: 93 T: 35 QT: 364 QTc: 422 Interpretive Statements SINUS RHYTHM ST DEVIATION AND MODERATE T-WAVE ABNORMALITY, CONSIDER ANTERIOR ISCHEMIA [-0.1+ mV T-WAVE IN V3/V4] Compared to ECG 11/09/2023 01:30:10 No significant changes Electronically Signed On 11-09-2023 18:51:44 CDT by Kyle Brady M.D. [id number]
--- NOTE | 2023-11-09 05:41 | XRR_ITS ---
PROCEDURE INFORMATION: Exam: XR Chest Exam date and time: 11/09/2023 6:07 AM Age: 47 years old Clinical indication: Other: Possible aspiration TECHNIQUE: Imaging protocol: Radiologic exam of the chest. Views: 1 view. COMPARISON: CR XR chest 1V portable [id number] 02/11/2023 9:23 PM FINDINGS: Lungs: Unremarkable. No consolidation. Pleural spaces: Unremarkable. No pleural effusion. No pneumothorax. Heart/Mediastinum: Unremarkable. No cardiomegaly. Bones/joints: Mild degenerative disease of the left acromioclavicular joint. Chronic fractures of the left 6th, 7th and 8th ribs. XR/XR chest 1V portable [id number] IMPRESSION: No acute cardiopulmonary process.
--- NOTE | 2023-11-09 05:44 | USCV_ITS ---
CamronBernardo Age: 47 Gender: M : 1975 Exam Date: 11/09/2023 09:17 Ordering Phys: Caren Jimenez MD Technologist: Ck Stacy Exam Location: [facility] [place] Indication: angina BP: 120 / 75 HR: 88 Rhythm: Sinus Technical Quality: Adequate MEASUREMENTS (Male / Female) Normal Values 2D ECHO LV Diastolic Diameter PLAX 4.3 cm 4.2 - 5.9 / 3.9 - 5.3 cm IVS Diastolic Thickness 1.2 cm 0.6 - 1.0 / 0.6 - 0.9 cm IVS Systolic Thickness 1.3 cm LVPW Diastolic Thickness 1.5 cm 0.6 - 1.0 / 0.6 - 0.9 cm LVPW Systolic Thickness 2.2 cm LVOT Diameter 2.1 cm LV Ejection Fraction 2D Teich 56.6 % LV Ejection Fraction MOD 4C 72.3 % LV Ejection Fraction MOD 2C 63.5 % LV Ejection Fraction 2C AL 64.0 % LA Diameter 3.9 cm RA Systolic Volume 4C AL 50.9 ml RA Systolic Volume 4C MOD 50.4 ml LA Sys Volume AL 40.9 cm cubed LA Sys Volume Index AL 16.4 cm cubed/m squared Aorta at Sinotubular Diameter 2.5 cm IVC Diameter 2.0 cm M-MODE LA Ao Ratio MM 1.6 AV Cusp Separation MM 2.2 cm DOPPLER AV Peak Velocity 147.0 cm/s LVOT Peak Velocity 120.0 cm/s AV Area Cont Eq vti 3.1 cm squared AV Area Cont Eq pk 2.8 cm squared MV Peak Velocity 103.0 cm/s MV Area PHT 6.1 cm squared Mitral E to A Ratio 1.4 TV Peak Velocity 167.3 cm/s TR Peak Velocity 204.0 cm/s TR Peak Gradient 16.6 mmHg TR Mean Velocity 176.0 cm/s TR Mean Gradient 12.5 mmHg TR Velocity Time Integral 48.0 cm PV Peak Velocity 101.7 cm/s RV Ejection Time 0.3 s FINDINGS Left Ventricle Normal left ventricular size and systolic function, EF 64%. No regional wall motion abnormalities. Right Ventricle Normal right ventricular size and systolic function. Right Atrium The right atrium is normal in size. Left Atrium The left atrium is normal in size. Mitral Valve No gross morphologic abnormalities Aortic Valve No gross morphologic abnormalities Tricuspid Valve No gross morphologic abnormalities Pulmonic Valve Pulmonic valve not well visualized. Pericardium No pericardial effusion. Aorta Normal aortic annulus size. IVC Inferior vena cava not visualized. CONCLUSIONS Normal left ventricular size and systolic function, EF 64%. No regional wall motion abnormalities. No gross valvular abnormalities. Normal chamber sizes. There is no pericardial effusion. There are no intracardiac masses. No similar previous studies are available for comparison Dr Kyle Brady MD FAC (Electronically Signed) Final Date: 09 November 2023 11:06 S
[2023-11-09 05:50] LABS: Troponin 5 6HR 8.65 ng/L (0-15); Troponin 5 6HR Delta 0.65 ng/L (0-12)
[2023-11-09 05:57] LABS: D Dimer 1.75 ug/mLFEU (0-0.59)
[2023-11-09] MEDS: enoxaparin 40 mg/0.4 mL Syringe SUBCUT (06:44)
[2023-11-09 07:15] LABS: SARS Covid-2 Antigen negative (Negative)
[2023-11-09] MEDS: albuterol 2.5 mg/3 mL Neb INHALATION (08:06)
[2023-11-09] MEDS: folic acid 1 mg Tablet PO (08:33)
[2023-11-09] MEDS: pantoprazole DR 40 mg Tablet PO (08:33)
[2023-11-09] MEDS: amlodipine 10 mg Tablet PO (08:33)
[2023-11-09] MEDS: multivitamin therapeutic Tablet 1 TAB PO (08:33)
[2023-11-09] MEDS: duloxetine 60 mg Capsule PO (08:33)
[2023-11-09] MEDS: thiamine 100 mg Tablet PO (08:34)
--- NOTE | 2023-11-09 10:30 | CTR_ITS ---
PROCEDURE INFORMATION: Exam: CTA Chest With Contrast Exam date and time: 11/09/2023 11:37 AM Age: 47 years old Clinical indication: Pain; Chest pressure; Additional info: Chest pain, episode of aspiration TECHNIQUE: Imaging protocol: Computed tomographic angiography of the chest with contrast. Exam focused on the arteries. 3D rendering (Not supervised by radiologist): MIP and/or 3D reconstructed images were created by the technologist. Radiation optimization: All CT scans at this facility use at least one of these dose optimization techniques: automated exposure control; mA and/or kV adjustment per patient size (includes targeted exams where dose is matched to clinical indication); or iterative reconstruction. Contrast material: OMNI 350; Contrast volume: 100 ml; Contrast route: INTRAVENOUS (IV); COMPARISON: CT angio chest PE protcl [id number] 02/21/2018 10:56 AM RADIATION DOSE METRICS: Total DLP (mGy-cm): 557.13 FINDINGS: Pulmonary arteries: Normal. No pulmonary emboli. Aorta: Unremarkable. No aortic aneurysm. No aortic dissection. Lungs: Bilateral lower lobe atelectasis. No focal consolidation. Pleural spaces: Unremarkable. No pneumothorax. No pleural effusion. Heart: Unremarkable. No cardiomegaly. No pericardial effusion. Lymph nodes: Calcified subcarinal and right hilar lymph nodes. Diaphragm: Small hiatal hernia. Liver: Hepatic steatosis. Hepatomegaly. No focal hepatic lesion. Bones/joints: Calcified granuloma in the right lower lobe small multilevel anterior osteophytes of the thoracic spine, consistent with mild degenerative chronic fracture deformities of left 7th and 8th ribs. Soft tissues: Unremarkable. CT/CT angio chest PE protcl [id number] IMPRESSION: 1. No pulmonary embolism. 2. No acute infiltrates.
[2023-11-09 11:12] LABS: Estmated Average Glucose 108; Hemoglobin A1C 5.4 % (4.0-6.0)
[2023-11-09] MEDS: sucralfate 1 gm/10 mL Oral Liq UDC PO (11:18)
[2023-11-09 11:24] LABS: Iron 143 ug/dL (59-158); Percent Saturation 42.4 % (20-50); Total Iron Binding Capacity 337 mcg/dl; Unsaturated Iron Binding 194 ug/dL (112-347); Vitamin B12 1251 pg/mL (232-1245)
--- NOTE | 2023-11-09 12:07 | P.DS_ITS ---
Discharge Providers Date of Admission: 11/09/23 01:55 Date of Discharge: November 09, 2023 Attending Provider at Admission: Caren Jimenez MD Attending Provider at Discharge: Enmanuel Starks MD Primary Care Provider: KAREN Sloan Diagnoses at Discharge Discharge Diagnosis (1) Chest pain: Status: Acute Qualifiers: Chest pain type: unspecified Qualified Code(s): R07.9 - Chest pain, unspecified (2) Alcohol intoxication: Status: Acute (3) Acute electrocardiogram changes: Status: Acute Reason for Visit Reason for Visit: CP Brief History: History as per HPI: Bernardo Lyon is a 47 year old male with a history of alcohol abuse, presented to the emergency room today with chief complaints of chest pain. Patient states that he has been having on and off chest discomfort located in the middle Of the chest, and radiating down to his left arm up to the elbow. He has not noticed any correlation with exertion. He has a history of reflux for which she has been taking Protonix recently. States there has been no interruption in his medications. Denies any known history of coronary artery disease. Denies any history of dyspnea. He is noted to be wheezing in the room. Carries a past medical history of COPD, takes albuterol inhaler as needed at home. States that a few days ago he aspirated while consuming a Flexeril tablet and has noticed himself to be more wheezy since then. He is a daily smoker. NO h/o DVT/ PE. Hospital Course Hospital Course He was admitted to the hospital further evaluation and management of chest pain. During hospitalization CAD was ruled out with negative troponin, echocardiogram showing no regional wall motion normality. D-dimer was mildly elevated though PE was ruled out on CTA. It is believed her symptoms are most likely musc uloskeletal from aggressive cough he had during aspiration event few days ago versus possible alcoholic gastritis. As per patient he believes it is musculoskeletal and not gastritis as he has dealt with GERD for a long time and if does not feel the same. Discussed about increasing Protonix and adding Carafate though patient is not willing to do the same. He has been discharged in hemodynamically stable condition on Ventolin inhaler as needed, cough suppressant as needed. He should have a Lexiscan stress test done as an outpatient as he is at a higher risk of CAD given hypertension, obesity and smoking. He was counseled against smoking any further. Physical Exam Narrative: General: No acute distress, AO x3 HEENT: PERRLA, pupils bilaterally equal and reactive, pallors not present Chest: Normal vesicular breath sounds, no added sounds, equal good air entry bilaterally CVS: S1-S2 regular, no murmurs, no tachycardia, no gallops, no rubs Abdomen: Soft, nontender, no organomegaly, bowel sounds present Neuro: No focal deficits, no facial deformity, AO x3, power 5/5 in all limbs a. Discharge Data Studies Completed and Pending Completed Studies During Hospitalization Category Date Time Status CTA chest [CT angio chest PE protcl 03130] Routine Cat Scan 11/09/23 10:30 Completed CXRP [XR chest 1V portable 17080] Routine Exams 11/09/23 05:41 Completed CV. echo complete* 61255 Routine Ultrasound 11/09/23 05:44 Completed Pending at discharge Category Date Time Status Complete Blood Count w/Auto AM LABS Lab 11/10/23 04:00 Ordered Complete Blood Count w/Auto Stat Lab 11/09/23 10:56 Ordered Comprehensive Metabolic Panel AM LABS Lab 11/10/23 04:00 Ordered Comprehensive Metabolic Panel Routine Lab 11/09/23 10:56 Ordered Drug Screen, Urine Stat Lab 11/09/23 10:32 Ordered Folate Level AM LABS Lab 11/10/23 04:00 Ordered Lipid Profile w/VLDL Routine Lab 11/10/23 04:00 Ordered MAG [Magnesium] AM LABS Lab 11/10/23 04:00 Ordered MAG [Magnesium] AM LABS Lab 11/11/23 04:00 Ordered MAG [Magnesium] AM LABS Lab 11/12/23 04:00 Ordered Urinalysis Routine Lab 11/09/23 10:32 Ordered Radiology Impressions Chest X-Ray 11/09/23 05:41 IMPRESSION: No acute cardiopulmonary process. Chest CTA 11/09/23 10:30 IMPRESSION: 1. No pulmonary embolism. 2. No acute infiltrates. Echocardiogram: CONCLUSIONS Normal left ventricular size and systolic function, EF 64%. No regional wall motion abnormalities. No gross valvular abnormalities. Normal chamber sizes. There is no pericardial effusion. There are no intracardiac masses. No similar previous studies are available for comparison Dr Kyle Brady MD FAC (Electronically Signed) Final Date: 09 November 2023 11:06 Laboratory Results WBC 9.13 10^3/uL (3.29-11.43) 11/08/23 23:49 RBC 3.89 10^6/uL (3.85-5.65) 11/08/23 23:49 Hgb 13.00 g/dL (11.27-16.99) 11/08/23 23:49 Hct 38.5 % (37-53) 11/08/23 23:49 MCV 99.0 fl (82-101) 11/08/23 23:49 MCH 33.4 pg (27-33) H 11/08/23 23:49 MCHC 33.8 g/dL (30-55) 11/08/23 23:49 RDW 13.4 % (12.1-15.1) 11/08/23 23:49 Plt Count 332 10^3/cmm (157-399) 11/08/23 23:49 MPV 8.9 fL (7.4-10.4) 11/08/23 23:49 Neut % (Auto) 51.9 % 11/08/23 23:49 Lymph % (Auto) 33.6 % 11/08/23 23:49 Blackford % (Auto) 8.1 % 11/08/23 23:49 Eos % (Auto) 3.0 % 11/08/23 23:49 Baso % (Auto) 1.5 % 11/08/23 23:49 Neut # (Auto) 4.74 10^3/uL (1.8-7.7) 11/08/23 23:49 Lymph # (Auto) 3.1 10^3/uL (0.8-4.8) 11/08/23 23:49 Blackford # (Auto) 0.7 10^3/uL (0.2-0.9) 11/08/23 23:49 Eos # (Auto) 0.3 10^3/uL (0.0-0.8) 11/08/23 23:49 Baso # (Auto) 0.1 10^3/uL (0.0-0.1) 11/08/23 23:49 Nucleated RBC % (auto) 0 % 11/08/23 23:49 Nucleated RBCs # 0.0 /100WBC 11/08/23 23:49 D-Dimer 1.75 ug/mLFEU (0-0.59) H 11/08/23 23:49 Sodium 137 mmol/L (136-145) 11/08/23 23:49 Potassium 3.6 mmol/L (3.5-5.1) 11/08/23 23:49 Chloride 99 mmol/L (98-107) 11/08/23 23:49 Carbon Dioxide 22 mmol/L (22-29) 11/08/23 23:49 Anion Gap 19.6 (5-19) H 11/08/23 23:49 BUN 13 mg/dL (6-20) 11/08/23 23:49 Creatinine 1.3 mg/dL (0.7-1.2) H 11/08/23 23:49 GFR Calculation 58.9 mL/min (90-130) L 11/08/23 23:49 Glucose 113 mg/dL (65-115) 11/08/23 23:49 Estimat Average Glucose 108 11/08/23 23:49 Hemoglobin A1c 5.4 % (4.0-6.0) 11/08/23 23:49 Calculated Osmolality 285 mOsm/kg (285-295) 11/08/23 23:49 Calcium 8.8 mg/dL (8.5-10.5) 11/08/23 23:49 Iron 143 ug/dL (59-158) 11/08/23 23:49 TIBC 337 mcg/dl 11/08/23 23:49 % Saturation 42.4 % (20-50) 11/08/23 23:49 Unsat Iron Binding 194 ug/dL (112-347) 11/08/23 23:49 Troponin T Baseline 8 ng/L (0-15) 11/08/23 23:49 Troponin T 120 Minute 8.53 ng/L (0-15) 11/09/23 01:07 Delta Troponin T 0.53 ABS# (0-10) 11/09/23 01:07 Troponin T Hi Sens 6Hr 8.65 ng/L (0-15) 11/09/23 05:23 Troponin T Hi Sens 6Hr Delta 0.65 ng/L (0-12) 11/09/23 05:23 Vitamin B12 1251 pg/mL (232-1245) H 11/08/23 23:49 TSH 1.80 uIU/mL (0.27-4.20) 11/08/23 23:49 Ethyl Alcohol 258 mg/dL (0-10) H 11/08/23 23:49 SARS-CoV-2 Ag (Rapid) negative (Negative) 11/09/23 06:50 Vitals Last Vital Signs Temp 97.7 F 11/09/23 07:58 Pulse 88 11/09/23 08:14 Resp 18 11/09/23 08:05 BP 120/75 11/09/23 07:58 Pulse Ox 98 11/09/23 08:05 O2 Del Method Nasal Cannula 11/09/23 08:05 O2 Flow Rate 1 11/09/23 08:05 Discharge Plan Discharge Patient Disposition: Home Condition: Stable Prescriptions: New Ventolin HFA 90 mcg/actuation HFA aerosol inhaler 1 inh inhalation Q6H PRN (Reason: shortness of breath or wheezing) Qty: 6.7 0RF Continued vitamin B complex Tablet 1 tab PO DAILY losartan 100 mg tablet See Rx Instructions .ROUTE .COMPLEX Qty: 30 2RF Dose Instruction: TAKE 1 TABLET BY MOUTH DAILY Rx Instructions: TAKE 1 TABLET BY MOUTH DAILY amlodipine 10 mg tablet 10 mg PO DAILY 90 Days Qty: 30 2RF celecoxib [Celebrex] 100 mg capsule 100 mg PO BID Qty: 180 0RF pantoprazole [Protonix] 40 mg tablet,delayed release (DR/EC) 40 mg PO DAILY 90 Days Qty: 90 0RF cyclobenzaprine 10 mg tablet 10 mg PO BEDTIME PRN (Reason: Muscle Spasm) tramadol 50 mg tablet 50 mg PO BEDTIME Rx Instructions: Pt reports he has tolerated before duloxetine 60 mg capsule,delayed release(DR/EC) 60 mg PO DAILY Discharge Orders: Discharge Order (Routine); Ordered 11/09/23 Ordered By: Enmanuel Starks Other Ambulatory Orders: Sestamibi Stress Test Request (Routine) Timeframe: 1 Week Facility: [facility] - Location: Cardiac Diagnostic Laboratory Ordered By: Enmanuel Starks Referrals: Juliano Wyatt FNP [Primary Care Provider] - 1 week (We have notified your physician's clinic of the need for a follow-up appointment to be scheduled. If you have not heard from them within the next 2 business days, please call them directly. ) Discharge Diet: Cardiac Discharge Activity: Resume usual activity and Increase activity as tolerated Patient Instructions: Alcohol Abuse, Alcohol Intoxication, Albuterol (By breathing), Chest Pain (DC), Chest Pain Stoplight, Opioid Safety Activity Restrictions/Additional Instructions: Please try to avoid alcohol consumption. Please try to avoid smoking. Follow-up with a primary care provider within next 1 week. Follow-up for Lexiscan stress test when available. You can take [id number] Robitussin as cough suppressant 4 times a day as needed. Discharge Attestations Time Spent in Discharge Care*: greater than 30 min Specific Discharge Activities: educating patient, discussing with pcp/other providers, discussing with welfare case worker/social workers/dc planners, documenting/other paperwork and evaluating patient/reviewing data Status at Discharge: Cognitive status at discharge: cognitively intact , Behavioral status at discharge: cooperative , Functional status at discharge: independent ambulation , Overall status at discharge: patient is back to baseline Quality Metrics Clinical Quality Measures [ No reported AMI, CVA or VTE this stay] Coding Level of Care Code 72180 Total time (in minutes) for Discharge: 60 Diagnoses Chest pain R07.9 Chest pain type: unspecified Alcohol intoxication F10.929 Acute electrocardiogram changes R94.31
[2023-11-09 12:41] LABS: Basophils # 0.1 10^3/uL (0.0-0.1); Basophils % 1.5 %; Eosinophils # 0.2 10^3/uL (0.0-0.8); Eosinophils % 2.4 %; Hematocrit 37.5 % (37-53); Lymphocytes # 1.9 10^3/uL (0.8-4.8); Lymphocytes % 26.1 %; Mean Corpuscular HGB Conc 33.3 g/dL (30-55); Mean Corpuscular Volume 98.9 fl (82-101); Mean Platelet Volume 8.7 fL (7.4-10.4); Monocytes # 0.6 10^3/uL (0.2-0.9); Monocytes % 8.7 %; Neutrophils # 4.46 10^3/uL (1.8-7.7); Neutrophils % 60.6 %; Nucleated Red Blood Cells % 0 %; Platelet Count 272 10^3/cmm (157-399); Red Blood Count 3.79 10^6/uL (3.85-5.65); Red Cell Distribution Width 13.2 % (12.1-15.1); White Blood Count 7.36 10^3/uL (3.29-11.43)
[2023-11-09 12:59] LABS: Alanine Aminotransferase 107 U/L (0-41); Alkaline Phosphatase 136 U/L (40-130); Anion Gap 18.9 (5-19); Aspartate Amino Transferase 101 U/L (0-40); Blood Urea Nitrogen 12 mg/dL (6-20); Calcium 8.3 mg/dL (8.5-10.5); Carbon Dioxide 23 mmol/L (22-29); Chloride 99 mmol/L (98-107); Globulin 3.4 g/dL (1.3-4.6); Glomerular Filtration Rate 64.6 mL/min (90-130); Glucose 106 mg/dL (65-115); Osmolality Calculated 284 mOsm/kg (285-295); Potassium 3.9 mmol/L (3.5-5.1); Sodium 137 mmol/L (136-145); Total Bilirubin 0.3 mg/dL (0.15-1.2); Total Protein 7.4 g/dL (6.6-8.7)
== END 2023-11-09 13:20 | disposition home or self-care (01) ==
LOC: ER 11-09 01:54 → MEDSURG 11-09 02:02
PROVIDERS: Admitting Provider Student in an Organized Health Care Education/Training Program; Emergency Provider Emergency Medicine; PCP Registered Nurse; Visit Provider Student in an Organized Health Care Education/Training Program
DX: R07.9 Chest pain, unspecified (principal); F10.929 Alcohol use, unspecified with intoxication, unspecified; R94.31 Abnormal electrocardiogram [ECG] [EKG]; J44.9 Chronic obstructive pulmonary disease, unspecified; K21.9 Gastro-esophageal reflux disease without esophagitis; I10 Essential (primary) hypertension; F17.200 Nicotine dependence, unspecified, uncomplicated
CPT/HCPCS: 36415; 71045; 71275; 80048; 80053; 80307; 82607; 83036; 83540; 83550; 84443; 84484; 85025; 85378; 87426; 93005; 93306; 94640; 96372; 99285; G0378; J1650; J3411; J7030; J7613; Q9967

== ENCOUNTER → 2023-11-28 11:54 | Outpatient (BNVA) | payer BC, MEDICAID, SELFPAY | PROVIDERS: PCP Registered Nurse; Visit Provider Registered Nurse | DX: I10 Essential (primary) hypertension (principal) | CPT/HCPCS: 80053 ==

== ENCOUNTER 2023-11-29 07:49 | Outpatient (CLI) | payer BC, MEDICAID, SELFPAY ==
--- NOTE | 2023-11-29 08:00 | NM_ITS ---
WS: [id number] THREE-PHASE BONE SCAN HISTORY: pain, bilateral hip pain greatest on the LEFT. COMPARISON: Radiograph 10/09/2023, 08/14/2023 Patient is is injected with 26.3 mCi Tc99m HDP intravenously. Immediate angiographic phase imaging is performed over the area of concern. Static blood pool imaging also performed. Two-hour whole-body sc intigrams performed in anterior and posterior projections. Additional large field of view imaging sub mitted as necessary. Normal angiographic imaging of the pelvis. On the blood pool phase images there is very slight increa sed uptake in the region of the LEFT hip. On delayed imaging there is more focal increased uptake in the region of the LEFT hip subcapital frac ture with screw fixation. There is mild increased uptake also noted bilaterally involving the superio r femoral heads and acetabuli, greatest on the LEFT. On the radiographs degenerative changes were not ed. Slightly greater lucency involving the LEFT superior hip radiographically. There is intermediate uptake also in the RIGHT hip within a subcapital location. There is additional increased uptake in the proximal RIGHT hip through the intertrochanteric region. This corresponds to the findings on the prior MRI suggestive of osteonecrosis. Mild increase uptake in the superior aceta bular margins. Mild increase uptake at the coracoid processes. NM/NM bone 3 phase 60600 IMPRESSION: 1. Status post screw fixation of the LEFT femoral head and neck fracture, [facility] 20[facility]. 2. There is intense uptake in the LEFT subcapital femoral neck at the site of the prior fracture. There is additional intermediate uptake within the remaini ng LEFT femoral head and proximal femur. On the recent radiographs of 10/09/2023 there is increasing lucency with loss of the normal overlying cortex of the albert perior femoral head. Suspect worsening osteonecrosis. 3. Additional intermediate uptake in the RIGHT hip, subcapital location and ov er the femoral head. Osteonecrosis was noted on the prior MRI study. The linear uptake in the subcapital location may represent an occult fracture superimpose d with changes of osteonecrosis.
== END 2023-11-29 07:50 | disposition home or self-care (01) ==
PROVIDERS: PCP Registered Nurse; Visit Provider Specialist
DX: M87.051 Idiopathic aseptic necrosis of right femur (principal); M16.12 Unilateral primary osteoarthritis, left hip; Z98.890 Other specified postprocedural states; M25.552 Pain in left hip; G89.29 Other chronic pain
CPT/HCPCS: 78315; A9561

== ENCOUNTER 2023-11-30 22:08 | Emergency (ER) | payer BC, MEDICAID, SELFPAY ==
[2023-11-30 22:13] VITALS: BMI 34.8
[2023-11-30 22:25] VITALS: BP 157/91; PULSE 113; RESP 18; TEMP 36.8; O2SAT 95
--- NOTE | 2023-11-30 22:35 | W.ED.BACK ---
HPI - Back Pain/Injury General: Chief Complaint: Back Pain/Injury Stated Complaint: MHE Time Seen by Provider: 11/30/23 22:23 History of Present Illness: Patient brought in by [facility] with police for the comment he would rather be than deal with the pain. Patient has pain in his chronic bilateral hips. Patient was adamant about not wanting to kill himself or kill anyone else he denies suicidal homicidal ideation. He he just said when the pain is worse sometimes he just does not think he can take it. Patient said he does not want to kill himself or does not have a plan. He said it was just a finger speech that everyone is blown out of proportion. Related Data Home Medications Medication Instructions Recorded Confirmed vitamin B complex 1 tab PO DAILY 09/23/23 11/28/23 cyclobenzaprine 10 mg tablet 10 mg PO BEDTIME PRN Muscle Spasm 11/09/23 11/28/23 duloxetine 60 mg capsule,delayed 60 mg PO DAILY 11/09/23 11/28/23 release tramadol 50 mg tablet 50 mg PO BEDTIME 11/09/23 11/28/23 Previous Rx's Medication Instructions Recorded amlodipine 10 mg tablet 10 mg PO DAILY 90 days #30 tabs 10/25/23 losartan 100 mg tablet See Rx Instructions .Route 10/25/23 .COMPLEX #30 tabs albuterol sulfate 90 mcg/actuation 1 inh inhalation Q6H PRN shortness 11/09/23 aerosol inhaler (Ventolin HFA) of breath or wheezing #6.7 grams pantoprazole 40 mg tablet,delayed See Rx Instructions .Route 11/19/23 release .COMPLEX #90 tabs hydrochlorothiazide 25 mg tablet 25 mg PO DAILY 30 days #30 tabs 11/28/23 Allergies Allergy/AdvReac Type Severity Reaction Status Date / Time codeine Allergy Severe shortness Verified 11/28/23 10:03 of breath avocado Allergy Unknown Verified 11/28/23 10:03 banana Allergy Unknown Verified 11/28/23 10:03 Review of Systems General: Reports: 10 or more systems reviewed and unremarkable except in HPI and below PFSH ED PFSH: Medical History Arthralgia of right elbow Obstructive sleep apnea Insomnia Hypersomnia Elevated d-dimer Osteoarthritis of left hip Chronic low back pain with left-sided sciatica Closed subcapital fracture of femur HTN (hypertension) Depression Surgical History H/O removal of cyst left arm S/P ORIF (open reduction internal fixation) fracture DOS 02/12/23 - Open reduction internal fixation left subcapital hip fracture utilizing cannulated screws x 3. Family History Grandfather CAD (coronary artery disease) Father Cancer Lung disease copd Sister Lung disease asthma Denies family history of Diabetes Chronic kidney disease (CKD) Hypertension Stroke Social History Smoking and tobacco/nicotine status: current some day tobacco/nicotine user ( rarely smokes ) Alcohol intake: current Alcohol intake frequency: few times a month Alcohol type: beer Substance/Drug Use: never Lives independently: No Household members: spouse Marital status: Current occupational status: employed Sexually active: Yes Do you think of yourself as: Straight/Heterosexual Current gender identity: Male Physical Exam Const: COMMON NORMALS: no acute distress, average body habitus, patient oriented x3, no limitations, healthy appearing, alert and well nourished Neck/C-Spine: COMMON NORMALS: no JVD Chest: COMMONS NORMALS: normal inspection of the chest and normal palpation of entire chest wall Resp: COMMON NORMALS: normal respiratory effort, No retractions, No use of accessory muscles and clear to auscultation bilaterally AUSCULTATION: clear to auscultation bilaterally Cardio: COMMON NORMALS: no JVD, regular rate, regular rhythm, S1 normal heart sound present, S2 normal heart sound present, No gallops present (Cardio), No clicks present (Cardio), No murmurs present (Cardio) and No rub (Cardio) RATE: regular rate RHYTHM: regular rhythm HEART SOUNDS: S1 normal heart sound present and S2 normal heart sound present GI: COMMON NORMALS: Normal to inspection, nondistended, normoactive bowel sounds present, Soft to palpation, non-tender, No hepatosplenomegaly present and no masses PALPATION: Yes Soft to palpation and Yes No hepatosplenomegaly present Neuro: COMMON NORMALS: patient oriented x3 SENSORIUM/ORIENTATION: Yes alert Course Vital Signs: Vital signs: Vital Signs Temperature 98.2 F 11/30/23 22:25 Pulse Rate 113 H 11/30/23 22:25 Respiratory Rate 18 11/30/23 22:25 Blood Pressure 157/91 11/30/23 22:25 Pulse Oximetry 95 11/30/23 22:25 MDM - Back Pain/Injury Medical Decision Making Patient adamantly denied suicidal homicidal ideation. Patient is alert and oriented x 4. Patient is in his right mind. Patient does have bilateral hip pain but he says he needs a pair crutches to fit him so he can take the weight off his hip. We will discharge him home and we will try to provide him with a pair crutches that fit. Medical Records I reviewed the patient's medical records. Labs I reviewed the patient's lab results. No radiology studies performed this visit Discharge Plan Discharge Patient Disposition: Home Clinical Impression: Bilateral hip pain Condition: Stable Prescriptions: No Action vitamin B complex Tablet 1 tab PO DAILY losartan 100 mg tablet See Rx Instructions .ROUTE .COMPLEX Qty: 30 2RF Dose Instruction: TAKE 1 TABLET BY MOUTH DAILY Rx Instructions: TAKE 1 TABLET BY MOUTH DAILY amlodipine 10 mg tablet 10 mg PO DAILY 90 Days Qty: 30 2RF hydrochlorothiazide 25 mg tablet 25 mg PO DAILY 30 Days Qty: 30 0RF Hold Instructions: Doctor's Order pantoprazole 40 mg tablet,delayed release (DR/EC) See Rx Instructions .ROUTE .COMPLEX Qty: 90 0RF Dose Instruction: TAKE 1 TABLET BY MOUTH DAILY Rx Instructions: TAKE 1 TABLET BY MOUTH DAILY cyclobenzaprine 10 mg tablet 10 mg PO BEDTIME PRN (Reason: Muscle Spasm) tramadol 50 mg tablet 50 mg PO BEDTIME Rx Instructions: Pt reports he has tolerated before duloxetine 60 mg capsule,delayed release(DR/EC) 60 mg PO DAILY Ventolin HFA 90 mcg/actuation HFA aerosol inhaler 1 inh inhalation Q6H PRN (Reason: shortness of breath or wheezing) Qty: 6.7 0RF Discharge Orders: Discharge ED (Routine); Ordered 11/30/23 Ordered By: Иван Boyd Referrals: Juliano Wyatt, [facility] [Primary Care Provider] - 1 week Patient Instructions: Hip Pain (ED), Crutch Instructions (ED) Activity Restrictions/Additional Instructions: You are provided for crutches to take the weight off your hips. Please use these as these may help your pain. Please follow-up with your normal doctor for further evaluation and treatment of your hip pain. Please continue take all your medicine as directed. If you ever have any ideas of suicide or homicidal thoughts or plans. Please feel free to return to the ER for further evaluation and treatment. Coding Level of Care Code ED Glass Technician/Installer for Maryam Emmanuel
== END 2023-11-30 22:54 | disposition home or self-care (01) ==
PROVIDERS: Emergency Provider Emergency Medicine; PCP Registered Nurse
DX: M25.552 Pain in left hip (principal); M25.551 Pain in right hip; Z72.0 Tobacco use; I10 Essential (primary) hypertension
CPT/HCPCS: 99283; E0114

== ENCOUNTER 2023-12-30 13:19 | Outpatient (CLI) | payer BC, MEDICAID, SELFPAY ==
[2023-12-30 13:58] LABS: Basophils # 0.1 10^3/uL (0.0-0.1); Basophils % 1.5 %; Eosinophils # 0.5 10^3/uL (0.0-0.8); Eosinophils % 5.5 %; Hematocrit 43.2 % (37-53); Lymphocytes # 1.9 10^3/uL (0.8-4.8); Lymphocytes % 21.2 %; Mean Corpuscular HGB Conc 33.1 g/dL (30-55); Mean Corpuscular Hemoglobin 33.5 pg (27-33); Mean Corpuscular Volume 101.2 fl (82-101); Monocytes # 0.9 10^3/uL (0.2-0.9); Monocytes % 9.5 %; Neutrophils # 5.55 10^3/uL (1.8-7.7); Neutrophils % 61.3 %; Nucleated Red Blood Cells % 0 %; Platelet Count 248 10^3/cmm (157-399); Red Blood Count 4.27 10^6/uL (3.85-5.65); White Blood Count 9.06 10^3/uL (3.29-11.43)
[2023-12-30 14:01] LABS: Bilirubin Urine Negative (Negative); Blood Urine Negative (Negative); Glucose Urine UA Negative (Normal); Ketones Urine Negative (Negative); Leukocyte Esterase Urine Negative (Negative); Nitrate Urine Negative (Negative); Protein Urine Negative (Negative); Specific Gravity, Urine 1.026 (1.005-1.030); Urine Appearance Clear (CLEAR); Urine Color Yellow (Yellow); pH Urine 5.5 (5-7)
[2023-12-30 14:04] LABS: Add Urine Microscopic? YES; Bacteria Urine None Seen /hpf; Hyaline Casts Urine 2.05 /lpf; RBC Urine 0-2 /hpf (0-2); Squamous Epithelial Cell Urine 0-5 /hpf (0-5); WBC Urine 0-5 /hpf (0-5)
[2023-12-30 14:08] LABS: Alanine Aminotransferase 78 U/L (0-41); Albumin Level 4.5 g/dL (3.5-5.2); Alkaline Phosphatase 142 U/L (40-130); Anion Gap 15.3 (5-19); Aspartate Amino Transferase 62 U/L (0-40); Blood Urea Nitrogen 11 mg/dL (6-20); Calcium 9.4 mg/dL (8.5-10.5); Carbon Dioxide 28 mmol/L (22-29); Chloride 100 mmol/L (98-107); Globulin 3.3 g/dL (1.3-4.6); Glomerular Filtration Rate 79.4 mL/min (90-130); Glucose 76 mg/dL (65-115); Osmolality Calculated 286 mOsm/kg (285-295); Potassium 4.3 mmol/L (3.5-5.1); Sodium 139 mmol/L (136-145); Total Bilirubin 0.2 mg/dL (0.15-1.2); Total Protein 7.8 g/dL (6.6-8.7)
== END 2023-12-30 13:20 | disposition home or self-care (01) ==
LOC: LAB 13:20
PROVIDERS: PCP Registered Nurse; Visit Provider Specialist
DX: Z01.818 Encounter for other preprocedural examination (principal)
CPT/HCPCS: 36415; 80053; 81001; 85025

== ENCOUNTER → 2024-01-01 09:41 | Outpatient (BNVA) | payer BC, MEDICAID, SELFPAY | PROVIDERS: PCP Registered Nurse; Visit Provider Family Medicine | DX: Z01.818 Encounter for other preprocedural examination (principal); I21.09 ST elevation (STEMI) myocardial infarction involving other coronary artery of anterior wall; I49.8 Other specified cardiac arrhythmias | CPT/HCPCS: 93005 ==

== ENCOUNTER 2024-01-09 15:08 | Observation (INO) | payer BC, MEDICAID, SELFPAY ==
[2024-01-09] VITALS (17 sets, daily range): BP systolic 92–142; BP diastolic 59–92; PULSE 86–104; RESP 17–20; TEMP 36.1–36.5; O2SAT 92–98; BMI 34.0
[2024-01-09] MEDS: sodium chloride 0.9% 1,000 ML 30 ML IV (09:15)
[2024-01-09] MEDS: acetaminophen 1,000 MG/100 ML PIGGYBACK 400 MG IV ×2 (09:22→16:57)
[2024-01-09] MEDS: CELEcoxib 200 mg Capsule 400 MG PO (09:25)
[2024-01-09] MEDS: gabapentin 300 mg Capsule PO (09:52)
--- NOTE | 2024-01-09 10:33 | ANES.PREANE2 ---
Pre-Anesthetic Assessment Height/Weight: Height 1.8 m Weight 110.677 kg Temp Pulse Resp BP Pulse Ox O2 Del Method 97.1 F L 93 18 142/92 98 Room Air 01/09/24 09:03 01/09/24 09:03 01/09/24 09:03 01/09/24 09:03 01/09/24 09:03 01/09/24 09:04 Operation Date: 01/09/24 11:00 Proposed Procedures p Total Hip Arthroplasty with possible revision components and hardware removal(Left) - Jessica Murdock MD Familial anesthetic complications: none Was Beta Jamal taken within 24 hours: N/A Was Clonidine taken within 24 hours: N/A Last intake: Intake Last Liquid Date 01/08/24 Last Liquid Time 21:00 Last Solid Date 01/08/24 Last Solid Time 21:00 Social Tobacco and No alcohol Exam alert, oriented x 3, clear to auscultation bilaterally and regular rate & rhythm Airway Mallampati: Class IV Dentition: chipped (several) CV/HEM Hypertension Anesthetic Plan ASA status: 2 Anesthesia: Regional (specify below) Other: Spinal Risk of > 500 ml blood loss (7ml/kg in children): Yes, adequate IV access and fluids planned Medications/Allergies Home Medications Medication Instructions Recorded Confirmed Last Taken Type vitamin B complex 1 tab PO DAILY 09/23/23 01/09/24 01/09/24 05:00 History amlodipine 10 mg tablet 10 mg PO DAILY 90 days #30 tabs 10/25/23 01/09/24 01/09/24 05:00 Rx albuterol sulfate 90 mcg/actuation 1 inh inhalation Q6H PRN shortness 11/09/23 01/09/24 01/08/24 Rx aerosol inhaler (Ventolin HFA) of breath or wheezing #6.7 grams cyclobenzaprine 10 mg tablet 10 mg PO BEDTIME PRN Muscle Spasm 11/09/23 01/08/24 01/07/24 History tramadol 50 mg tablet 50 mg PO BEDTIME PRN pain 30 days 12/06/23 01/08/24 01/08/24 Rx #30 tabs duloxetine 60 mg capsule,delayed 60 mg PO DAILY 01/08/24 01/09/24 01/09/24 05:00 History release losartan 100 mg tablet 100 mg PO DAILY 01/08/24 01/09/2401/08/24 05:00 History pantoprazole 40 mg tablet,delayed 40 mg PO DAILY #30 tabs 01/08/24 01/09/24 Unknown Rx release Allergies Allergy/AdvReac Type Severity Reaction Status Date / Time codeine Allergy Severe shortness Verified 01/09/24 08:56 of breath avocado Allergy Unknown Verified 01/09/24 08:56 banana Allergy Unknown Verified 01/09/24 08:56 Current Medications Generic Name Dose Route Start Last Admin Trade Name Freq PRN Reason Stop Dose Admin Sodium Chloride 1,000 mls @ 30 mls/hr 01/09/24 06:45 01/09/24 09:15 Sodium Chloride 0.9% IV 01/10/24 06:44 30 mls/hr .Q24H ROSANGELA Administration Vancomycin HCl 2,000 mg/ 500 mls @ 250 mls/hr 01/09/24 09:30 01/09/24 09:47 Sodium Chloride IV 01/09/24 11:29 250 mls/hr DRIVER TRAINER ONE Administration Protocol [facility] Anesthesia Medical History Arthralgia of right elbow Obstructive sleep apnea Insomnia Hypersomnia Elevated d-dimer Osteoarthritis of left hip Chronic low back pain with left-sided sciatica Closed subcapital fracture of femur HTN (hypertension) Depression Surgical History H/O removal of cyst left arm S/P ORIF (open reduction internal fixation) fracture DOS 02/12/23 - Open reduction internal fixation left subcapital hip fracture utilizing cannulated screws x 3. Family History Grandfather CAD (coronary artery disease) Father Cancer Lung disease copd Sister Lung disease asthma Denies family history of Diabetes Chronic kidney disease (CKD) Hypertension Stroke Social History Smoking and tobacco/nicotine status: never used tobacco/nicotine Alcohol intake: current Alcohol intake frequency: few times a month Alcohol type: beer Substance/Drug Use: never Lives independently: No Household members: spouse Marital status: Current occupational status: employed Sexually active: Yes Do you think of yourself as: Straight/Heterosexual Current gender identity: Male Data Anesthesia Cardiac Studies: Echocardiogram 11/09/23
--- NOTE | 2024-01-09 10:40 | W.PM.OPSUD ---
Surgery/Procedure H&P Update DATE OF PROCEDURE: January 09, 2024 DATE H&P PERFORMED: 01/01/24 H&P UPDATE INFORMATION: I have reviewed H&P completed within last 30 days, I have examined patient prior to procedure, No changes to prior documentation and H&P is in [facility] EMR on date indicated PLANNED PROCEDURE: Operation Date: 01/09/24 11:00 Proposed Procedures p Total Hip Arthroplasty with possible revision components and hardware removal(Left) - Jessica Murdock MD Related Problem List Diagnoses (1) Avascular necrosis of bone of left hip: (2) Osteoarthritis of left hip: Qualifiers: Osteoarthritis type: primary Qualified Code(s): M16.12 - Unilateral primary osteoarthritis, left hip (3) S/P ORIF (open reduction internal fixation) fracture:
[2024-01-09] MEDS: ceFAZolin 2,000 mg SDV 2000 MG IVP ×2 (12:23→20:29)
[2024-01-09] MEDS: tranexamic acid 1,000 mg/10mL SDV 1000 MG IV (12:27)
[2024-01-09] MEDS: vancomycin 1,000 MG SDV 1000 MG IRRIGATION (12:48)
[2024-01-09] MEDS: vancomycin 1,000 MG SDV 1000 MG XX (12:48)
--- NOTE | 2024-01-09 15:26 | PM.OP ---
Operative Report Date of procedure: January 09, 2024 Pre-op diagnosis: Left hip retained hardware with avascular necrosis of the femoral head and severe degenerative osteoarthritis Post-op diagnosis: Left hip retained hardware with avascular necrosis of the femoral head and severe degenerative osteoarthritis Post-op findings: Severe avascular necrosis with femoral head collapse and degloving of cartilage. Procedure done: Left total hip arthroplasty with removal of retained hardware left proximal femur Implants: The [place] total hip system with a size 56 mm by F alpha code Trident II Tritanium solid back acetabular shell and an MDM liner size 46 mm inner diameter by F alpha code.? A size 8 Accolade II 127? neck angle hip stem with a size 28 mm x +4 mm femoral head and a jain MDM X3 insert size 46F Specimens removed/disposition: Cultures of screws and femoral head, femoral head sent to pathology Pathology: See above Surgeon: Jessica Murdock MD Carpet Inspector Finished: Lydia Khanna Carpet Inspector Finished: Services of the nurse practitioner oncology physician assistant were required for positioning, manipulation of the leg during the surgical procedure, retraction, and completion of the surgical procedure. Anesthesia: General (Intubated, ASA 2) Estimated blood loss (mL): 400 IV fluids (mL): 1,100 Urine output (mL): 500 Complications: None Findings: Severe avascular necrosis of the femoral head with deformity and peeling of the articular cartilage from the underlying bone. The hip was stable at 90 degrees of flexion with 45 degrees of internal rotation and 20 degrees of adduction. It was also stable to toe hang and external rotation. Condition: stable Disposition: PACU (Then to floor for postoperative rehabilitation and pain management) Brief History: This 48-year-old gentleman presented to the office complaining of severe left hip pain. Initially, he underwent open reduction internal fixation of a femoral neck fracture in January of last year. He went on to develop avascular necrosis, and his femoral head deformity was quite severe. The patient had significant pain requiring the use of 2 crutches for ambulation. In spite of his age, evaluation of his joint demonstrated severe degenerative osteoarthritis and he had severe limitations in his activities of daily living. The patient wished to proceed with operative intervention. Risk, complications, and long-term limitations were discussed at length with the patient and he wished to proceed. Surgical consents were signed in the office and questions were answered. Procedure: Patient was brought to the operating theater.? He was transferred to the operating room table and subsequently administered a general anesthesia intubated, ASA 2.? Following administration of adequate anesthesia, the patient was placed in full lateral position and held in position with a pegboard.? The patient's left lower extremity was then prepped and draped in usual fashion utilizing DuraPrep.? It was draped free.? Following prepping and draping, a surgical pause was performed.? At the time of surgical pause, we identified the site and side of surgery.? We also identified the patient and preoperative surgical markings.? Additionally, leg lengths were marked after draping.? Confirmation was made of equipment availability.? The patient's preoperative IV antibiotics, Ancef 2 g and vancomycin 1 g, and TXA administration was confirmed as well.? X-rays were also reviewed. Following the surgical pause, an incision was made centering over the patient's greater trochanter continuing proximally and distally as necessary to allow access to the hip joint.? Patient's previous incision from his open reduction internal fixation with cannulated screws was incorporated into this incision. Dissection continued through skin and soft tissues using a scalpel, and hemostasis was obtained using electrocautery. The tensor fascia dimitri was identified and incised longitudinally, and the tensor fascia dimitri was noted to be very tight. Exposure was difficult secondary to this. Patient notes vastus lateralis was over area of placement of the previous screws for the fixation. These were palpated, and a guidewire was placed into each screw. They were removed from the femoral head uneventfully. Cultures were taken of the fluid that was within the screws and also of the screw tracks. The sciatic nerve was identified and protected throughout the surgical procedure.? A Charnley U retractor was placed after the tensor fascia dimitri had been incised longitudinally, and the sciatic nerve had been identified.? The hip was internally rotated with extreme difficulty, and the piriformis muscle was identified and tagged. Piriformis muscle along with the remaining short external rotators were then incised from the posterior aspect of the hip joint.? These were retracted posteriorly.? The capsule was entered in a T-type fashion with the edges being tagged, and subsequently the hip was dislocated.? There was severe degenerative osteoarthritis, deformity of the femoral head, and delamination of the articular cartilage from the femoral head. Following hip dislocation, a femoral neck osteotomy was accomplished in the appropriate position.? The head was measured, but it was quite deformed.? Subsequently, it was sent to pathology.? We then evaluated the acetabulum. The femur was retracted anteriorly.? Soft tissues were retracted, and the labrum was removed.? We then began reaming.? Once the femoral head was removed, there was noted to be significant loss of cartilage over the head with the previously noted deformity and within the acetabulum.? We reamed to a size 55 mm to allow for a size 56 mm acetabular shell.? The acetabulum was impacted into position. The cup was stable. The MDM liner was then impacted into position with care being taken to assure it seated appropriately.? It was noted that the acetabulum matched the bony anatomy.? The cup was noted to seat nicely and had good fixation upon impact. Attention was directed to the proximal femur.? The proximal femur was lifted out of the wound.? A canal finder was passed after the box chisel. We then began broaching. We broached sequentially and had excellent fit and fill with the size 8 broach. ? A trial reduction was attempted with a +0 mm femoral head.? Subsequently, we changed to a +4 mm femoral head. With this construct, the hip was stable, and leg length was felt to be equal.? With this in place, we had the above stabilities.? This was felt to be excellent stability. Therefore, trial components were removed after the hip was dislocated.? The size 8 Accolade II 127? neck angle stem was impacted into position without difficulty and onto this was placed a +4 mm x 28 mm femoral head which had been assembled into the MDM insert size 46F.? With a +4 mm femoral head, we had the above-noted stability.? The stem was noted to seat nicely prior to placement of the femoral head.? The wound was copiously irrigated with 20 mL of Betadine and 500 mL of normal saline mixed together.? Subsequently, we suctioned this out and irrigated the wound copiously with lactated Ringer's.? At this time, with all components in appropriate position, the hip was reduced.? Following reduction of the prosthesis once again, we confirmed the stability of the hip.? Leg lengths were also felt to be satisfactory. Being satisfied with the prosthesis, attention was directed to closure.? Closure was accomplished with 0 Vicryl in the capsular tissues.? Piriformis was reattached with 0 Vicryl as well.? Tensor fascia dimitri was closed with 0 Vicryl in an interrupted fashion.? The subcutaneous tissues were closed with a combination of 0 Vicryl and 2-0 Monocryl. Vancomycin powder and a Gelfoam thrombin mixture was placed into the wound as well.? The skin was closed with skin jose followed by Silverlon dressing.? The patient was placed in an abduction pillow.? He was returned the Recovery Room in a satisfactory condition and will be discharged to the floor for postoperative rehabilitation and pain management.? There were no complications, and specimens were sent as above. Related Problem List Diagnoses (1) Avascular necrosis of bone of left hip: (2) Osteoarthritis of left hip: (3) S/P ORIF (open reduction internal fixation) fracture:
[2024-01-09] MEDS: fentaNYL 50 mcg/mL INJ 2mL IVP (15:40)
--- NOTE | 2024-01-09 15:52 | SUR.PHASEI ---
Pt states he is having pain 11/25. Dr. Rushing at bedside, she stated pt is unable to have a second dose of IV tylenol at this time, to give the pt something short lived like fentanyl because his O2 sat had dropped with other medications.
--- NOTE | 2024-01-09 16:00 | ANE.PACU2 ---
Inpatient post-anesthesia follow up: Airway intact: Yes Vital signs: Temperature 98.5 F Pulse Rate 100 Respiratory Rate 18 Blood Pressure 123/76 Pulse Oximetry 95 Oxygen Delivery Me thod Room Air Oxygen Flow Rate 8 Fraction of Inspir ed Oxygen Hydration adequate: Yes Nausea and vomiting: No Pain level: 1 Mental status: Baseline
--- NOTE | 2024-01-09 16:14 | XRR_ITS ---
PROCEDURE INFORMATION: Exam: XR Pelvis Exam date and time: 01/09/2024 3:35 PM Age: 48 years old Clinical indication: Screening exam; Post op imaging for total hip; Prior surgery; Surgery date: Post-operative (0-2 days); Surgery type: Post op left hip; Additional info: S/P left geraldo -- pacu images. , Low ap pelvis TECHNIQUE: Imaging protocol: Radiologic exam of the pelvis. Views: 1 or 2 view. COMPARISON: CR XR hip RT 2-3V wo/w pel* [id number] 10/09/2023 12:35 PM FINDINGS: Tubes, catheters and devices: Hardware appears intact without complication. Bones/joints: Left total hip arthroplasty. Alignment is anatomic. No periprosthetic fracture. Moderate degenerative changes of the right hip. Soft tissues: Subcutaneous gas and skin closure jose along with left hip compatible with recent surgery. XR/XR pelvis 1-2V* [id number] IMPRESSION: Left total hip arthroplasty without apparent complication.
[2024-01-09] MEDS: oxyCODONE 5 mg IR Tab/Cap PO ×2 (16:46→23:41)
[2024-01-09] MEDS: sodium chloride 0.9% 1,000 ML 100 ML IV (16:47)
[2024-01-09] MEDS: calcium carbonate 500 mg Chew Tablet 1000 MG PO (16:56)
[2024-01-09] MEDS: CELEcoxib 200 mg Capsule PO (16:56)
[2024-01-09] MEDS: iron polysaccharide complex 150 mg Capsule PO (16:56)
[2024-01-09] MEDS: chlorhexidine gluconate 0.12% Btl 473 mL 30 ML MUCOUS MEM ×2 (16:56→20:33)
[2024-01-09] MEDS: mupirocin oint 22 gm 1 APPLIC NASAL (16:57)
--- NOTE | 2024-01-09 18:15 | PC.NURSE ---
Pt adamant that luis be removed NOW. Pt able to stand with one assist without difficulty. Has all sensation to lower extremities. Luis removed at this time.
[2024-01-09] MEDS: nicotine 21 mg Patch 1 PATCH TRANSDERMA (20:33)
[2024-01-09] MEDS: tranexamic acid 1,000 MG/100 ML PREMIX 600 MG IV (23:41)
[2024-01-09] MEDS: cyclobenzaprine 10 mg Tablet PO (23:42)
[2024-01-09] MEDS: albuterol 2.5 mg/3 mL Neb INHALATION (23:45)
[2024-01-10] MEDS: acetaminophen 1,000 MG/100 ML PIGGYBACK 400 MG IV ×2 (00:47→08:46)
[2024-01-10] MEDS: sodium chloride 0.9% 1,000 ML 100 ML IV ×2 (02:04→13:00)
[2024-01-10] MEDS: ceFAZolin 2,000 mg SDV 2000 MG IVP ×2 (03:53→13:00)
[2024-01-10] MEDS: CELEcoxib 200 mg Capsule PO (03:53)
[2024-01-10 03:59] VITALS: RESP 16
[2024-01-10] MEDS: oxyCODONE 5 mg IR Tab/Cap PO ×3 (03:59→12:59)
[2024-01-10 04:15] VITALS: BP 119/79; PULSE 95; RESP 16; TEMP 36.4; O2SAT 94
[2024-01-10 05:45] LABS: Basophils % 0.1 %; Eosinophils % 0.1 %; Hematocrit 33.5 % (37-53); Lymphocytes # 1.1 10^3/uL (0.8-4.8); Mean Corpuscular HGB Conc 33.1 g/dL (30-55); Mean Corpuscular Volume 99.7 fl (82-101); Monocytes # 0.8 10^3/uL (0.2-0.9); Monocytes % 5.6 %; Neutrophils # 12.88 10^3/uL (1.8-7.7); Neutrophils % 86.3 %; Nucleated Red Blood Cells % 0 %; Platelet Count 193 10^3/cmm (157-399); Red Blood Count 3.36 10^6/uL (3.85-5.65); White Blood Count 14.93 10^3/uL (3.29-11.43)
[2024-01-10 06:20] LABS: Anion Gap 16.6 (5-19); Blood Urea Nitrogen 14 mg/dL (6-20); Calcium 8.2 mg/dL (8.5-10.5); Carbon Dioxide 23 mmol/L (22-29); Chloride 101 mmol/L (98-107); Glomerular Filtration Rate 89.7 mL/min (90-130); Glucose 116 mg/dL (65-115); Osmolality Calculated 283 mOsm/kg (285-295); Potassium 4.6 mmol/L (3.5-5.1); Sodium 136 mmol/L (136-145)
[2024-01-10 07:00] VITALS: BP 123/76; PULSE 100; RESP 17; TEMP 36.9; O2SAT 95
[2024-01-10 08:01] VITALS: PULSE 100; RESP 18; O2SAT 95
[2024-01-10] MEDS: iron polysaccharide complex 150 mg Capsule PO (08:46)
[2024-01-10] MEDS: calcium carbonate 500 mg Chew Tablet 1000 MG PO (08:47)
[2024-01-10] MEDS: cholecalciferol (vitamin D3) 1,000 unit Tablet 1000 UNIT PO (08:47)
[2024-01-10] MEDS: duloxetine 60 mg Capsule PO (08:47)
[2024-01-10] MEDS: amlodipine 10 mg Tablet PO (08:47)
[2024-01-10] MEDS: chlorhexidine gluconate 0.12% Btl 473 mL 30 ML MUCOUS MEM ×2 (08:47→13:01)
[2024-01-10] MEDS: aspirin 325 mg EC Tablet PO (08:47)
[2024-01-10] MEDS: losartan 50 mg Tablet 100 MG PO (08:47)
[2024-01-10] MEDS: multivitamin therapeutic Tablet 1 TAB PO (08:48)
[2024-01-10] MEDS: mupirocin oint 22 gm 1 APPLIC NASAL (08:48)
[2024-01-10] MEDS: sennosides-docusate Tablet 2 TAB PO (08:48)
[2024-01-10] MEDS: pantoprazole DR 40 mg Tablet PO (08:48)
[2024-01-10 11:00] VITALS: BP 124/81; PULSE 108; RESP 16; TEMP 36.4; O2SAT 97
--- NOTE | 2024-01-10 11:59 | PC.CHAP ---
Pastoral Care Encounter/Spiritual Assessment Type of Contact [] Declined branch operation evaluation manager visit [] Patient/Family/Request visit [] Outpatient visit [] Follow-up visit [] Physician referral [] Code/Alert [] Routine visit [] Staff referral [] Actively dying [] Patient sleeping [] Family support [] [] Out of room [] Palliative care [] [x] Receiving care in room x2 [] Pre-surgical visit [] Trauma [] Long length of stay [] ICU visit [] Other: Relational/Emotional Strength [] Patient feels connected with others/family/visitors/staff [] Distress [] Loneliness/isolation [] Abandonment Spirituality of Patient [] Person of Sima [] Attends Gnosticist of their Sima [] Believes in Prayer [] Reads Bible or Pentecostalism materials [] There are Spiritual issues to be addressed Tobacco Sieve Operator Interventions [] Prayer [] Active listening [] Non-anxious presence [] Spiritual/emotional support [] Crisis/trauma care [] Spiritual counseling [] Bereavement support [] Provided bereavement packet [] Provided Bible/devotional materials [] Provided toy/stuffed animal, coloring book to patient or family member [] Provided Communion [] Anointing/[place] [] Salvation [] Completed spiritual assessment [] Other: Impact on Illness or Injury [] Angry [] Fearful [] Anxious [] Often cries [] Exhaustion [] Unable to work [] Unable to attend gnosticism [] Unable to walk/stand [] Unable to read [] Unable to drive [] Unable to eat/drink [] Unable to sleep [] Unable to be with family [] Patient intubated [] Other: Summary Time spent with patient
[2024-01-10 12:59] VITALS: RESP 18
--- NOTE | 2024-01-10 14:38 | P.DS_ITS ---
Discharge Providers Date of Admission: 01/09/24 15:08 Date of Discharge: January 10, 2024 Attending Provider at Admission: Jessica Murdock MD Attending Provider at Discharge: Jessica Murdock MD Primary Care Provider: KAREN Sloan Diagnoses at Discharge Discharge Diagnosis (1) Avascular necrosis of bone of left hip: Status: Acute (2) Osteoarthritis of left hip: Status: Chronic Qualifiers: Osteoarthritis type: primary Qualified Code(s): M16.12 - Unilateral primary osteoarthritis, left hip (3) S/P ORIF (open reduction internal fixation) fracture: Status: Acute Permanent problem details: DOS 02/12/23 - Open reduction internal fixation left subcapital hip fracture utilizing cannulated screws x 3. (4) Status post total hip replacement, left: Status: Acute Permanent problem details: Date of procedure: January 09, 2024 Diagnosis: Left hip retained hardware with avascular necrosis of the femoral head and severe degenerative osteoarthritis Procedure done: Left total hip arthroplasty with removal of retained hardware left proximal femur Implants: The [place] total hip system with a size 56 mm by F alpha code Trident II Tritanium solid back acetabular shell and an MDM liner size 46 mm inner diameter by F alpha code. A size 8 Accolade II 127? neck angle hip stem with a size 28 mm x +4 mm femoral head and a mormonism MDM X3 insert size 46F Reason for Visit Reason for Visit: M87.052 Brief History: This 48-year-old gentleman presented to the office complaining of severe left hip pain. Initially, he underwent open reduction internal fixation of a femoral neck fracture in January of last year. He went on to develop avascular necrosis, and his femoral head deformity was quite severe. The patient had significant pain requiring the use of 2 crutches for ambulation. In spite of his age, evaluation of his joint demonstrated severe degenerative osteoarthritis and he had severe limitations in his activities of daily living. The patient wished to proceed with operative intervention. Risk, complications, and long- term limitations were discussed at length with the patient and he wished to pr oceed. Surgical consents were signed in the office and questions were answered. Hospital Course Hospital Course Patient was admitted for same-day surgery in the form of total hip arthroplasty. The procedure was well-tolerated. The patient did well following, and he worked well with physical therapy. He was independent and up in his room and felt safe for discharge to home. There is no evidence of DVT when the hip was evaluated. Physical Exam Const: COMMON NORMALS: no acute distress, average body habitus, patient oriented x3, no limitations, healthy appearing, alert and well nourished G ENERAL APPEARANCE: cooperative; not anxious and not combative ORIENTATION/CONSCIOUSNESS: Yes awake, Yes oriented to person, Yes oriented to place and Yes oriented to time HENMT: COMMON NORMALS: normocephalic and atraumatic HEAD & SCALP: normocephalic and atraumatic Eye: GENERAL EYE: appearance normal, both eyes and all related structures EYELID: eyelids normal Chest: COMMONS NORMALS: normal inspection of the chest Resp: COMMON NORMALS: normal respiratory effort EFFORT & INSPECTION: Yes able to speak in complete sentences and Yes symmetric chest movement Extremity: LEFT LOWER EXTREMITY: Yes hip joint Left hip: Yes inspection (No significant ecchymosis or swelling), Yes ROM (Not evaluated) and Yes neurovascular exam (Intact distally) Neuro: COMMON NORMALS: patient oriented x3 SENSORIUM/ORIENTATION: Yes alert, Yes oriented to person, Yes oriented to place and Yes oriented to time SPEECH: speech normal Psych: ATTITUDE: Yes calm and Yes engaged ACTIVITY/MOTOR BEHAVIOR: Yes appropriate eye contact ATTENTION/CONCENTRATION: Yes attention grossly intact MEMORY/COGNITION: Yes memory grossly intact Skin: COMMON NORMALS: no rashes or lesions noted and turgor normal; negative for no jaundice GENERAL SKIN EXAM: no rashes or lesions noted, turgor normal and no jaundice Urinary Catheter Management: Salazar: Cath Placed During This Visit: yes, but has since been removed by the nurse Reason for Continuing Indwelling Catheter: Perioperative Use in Selected Surgeries Urinary Catheter Date of Insertion: 01/09/24 Urinary Catheter Time of Insertion: 12:05 Date Urinary Catheter Removed: 01/09/24 Time Urinary Catheter Discontinued: 18:15 Discharge Data Studies Completed and Pending Completed Studies During Hospitalization Category Date Time Status XR pelvis 1-2V* [id number] Routine Exams 01/09/24 16:14 Completed Pending at discharge Category Date Time Status XR pelvis 1-2V* [id number] Routine Exams 01/09/24 15:29 Taken Abscess Culture and Gram Stain Routine Lab 01/09/24 13:46 Results Abscess Culture and Gram Stain Stat Lab 01/09/24 12:56 Results Abscess Culture and Gram Stain Stat Lab 01/09/24 12:56 Results Anaerobic Culture Routine Lab 01/09/24 12:56 Results Anaerobic Culture Routine Lab 01/09/24 12:56 Results Anaerobic Culture Routine Lab 01/09/24 13:46 Results Complete Blood Count w/Auto AM LABS Lab 01/11/24 04:00 Ordered Complete Blood Count w/Auto AM LABS Lab 01/12/24 04:00 Ordered Pathology: Surgical [PTH] Routine Pth 01/09/24 14:28 Received Radiology Impressions Pelvis X-Ray 01/09/24 16:14 IMPRESSION: Left total hip arthroplasty without apparent complication. Laboratory Results WBC 14.93 10^3/uL (3.29-11.43) H 01/10/24 04:58 RBC 3.36 10^6/uL (3.85-5.65) L 01/10/24 04:58 Hgb 11.10 g/dL (11.27-16.99) L 01/10/24 04:58 Hct 33.5 % (37-53) L 01/10/24 04:58 MCV 99.7 fl (82-101) 01/10/24 04:58 MCH 33.0 pg (27-33) 01/10/24 04:58 MCHC 33.1 g/dL (30-55) 01/10/24 04:58 RDW 12.0 % (12.1-15.1) L 01/10/24 04:58 Plt Count 193 10^3/cmm (157-399) 01/10/24 04:58 MPV 10.0 fL (7.4-10.4) 01/10/24 04:58 Neut % (Auto) 86.3 % 01/10/24 04:58 Lymph % (Auto) 7.0 % 01/10/24 04:58 [place] % (Auto) 5.6 % 01/10/24 04:58 Eos % (Auto) 0.1 % 01/10/24 04:58 Baso % (Auto) 0.1 % 01/10/24 04:58 Neut # (Auto) 12.88 10^3/uL (1.8-7.7) H 01/10/24 04:58 Lymph # (Auto) 1.1 10^3/uL (0.8-4.8) 01/10/24 04:58 [place] # (Auto) 0.8 10^3/uL (0.2-0.9) 01/10/24 04:58 Eos # (Auto) 0.0 10^3/uL (0.0-0.8) 01/10/24 04:58 Baso # (Auto) 0.0 10^3/uL (0.0-0.1) 01/10/24 04:58 Nucleated RBC % (auto) 0 % 01/10/24 04:58 Nucleated RBCs # 0.0 /100WBC 01/10/24 04:58 Sodium 136 mmol/L (136-145) 01/10/24 04:58 Potassium 4.6 mmol/L (3.5-5.1) 01/10/24 04:58 Chloride 101 mmol/L (98-107) 01/10/24 04:58 Carbon Dioxide 23 mmol/L (22-29) 01/10/24 04:58 Anion Gap 16.6 (5-19) 01/10/24 04:58 BUN 14 mg/dL (6-20) 01/10/24 04:58 Creatinine 0.9 mg/dL (0.7-1.2) 01/10/24 04:58 GFR Calculation 89.7 mL/min (90-130) L 01/10/24 04:58 Glucose 116 mg/dL (65-115) H 01/10/24 04:58 Calculated Osmolality 283 mOsm/kg (285-295) L 01/10/24 04:58 Calcium 8.2 mg/dL (8.5-10.5) L 01/10/24 04:58 Vitals Last Vital Signs Temp 97.6 F 01/10/24 11:00 Pulse 108 H 01/10/24 11:00 Resp 18 01/10/24 12:59 BP 124/81 01/10/24 11:00 Pulse Ox 97 01/10/24 11:00 O2 Del Method Room Air 01/10/24 11:00 O2 Flow Rate 8 01/09/24 15:36 Discharge Plan Discharge Patient Disposition: Home Condition: Stable Prescriptions: New acetaminophen 500 mg Tablet 1,000 mg PO Q8H 15 Days Qty: 90 0RF aspirin 325 mg Tablet,Delayed Release (Dr/Ec) 325 mg PO DAILY Qty: 30 0RF celecoxib 200 mg Capsule 200 mg PO 1XD 30 Days Qty: 30 0RF oxycodone 5 mg Tablet 5 - 10 mg PO Q4H PRN (Reason: Moderate To Severe Pain) 7 Days Qty: 40 0RF Continued vitamin B complex Tablet 1 tab PO DAILY amlodipine 10 mg tablet 10 mg PO DAILY 90 Days Qty: 30 2RF tramadol 50 mg tablet 50 mg PO BEDTIME PRN (Reason: pain) 30 Days Qty: 30 0RF Rx Instructions: 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/09 pantoprazole 40 mg tablet,delayed release (DR/EC) 40 mg PO DAILY Qty: 30 0RF Rx Instructions: TAKE 1 TABLET BY MOUTH DAILY cyclobenzaprine 10 mg tablet 10 mg PO BEDTIME PRN (Reason: Muscle Spasm) albuterol sulfate [Ventolin HFA] 90 mcg/actuation HFA aerosol inhaler 1 inh inhalation Q6H PRN (Reason: shortness of breath or wheezing) Qty: 6.7 0RF losartan 100 mg tablet 100 mg PO DAILY Rx Instructions: TAKE 1 TABLET BY MOUTH DAILY duloxetine 60 mg Capsule,Delayed Release(Dr/Ec) 60 mg PO DAILY Discharge Orders: Discharge Order (Routine); Ordered 01/10/24 Ordered By: Jessica Murdock Other Ambulatory Orders: DME: Walker (Order) Location: None Selected Ordered By: Jessica Murdock Referrals: [facility] [place] [Outside] Jessica Murdock MD [Physician] - 01/22/24 3:30 pm Discharge Diet: Advance as tolerated and Usual diet Discharge Activity: Limit activity as instructed, Use walker/crutches as instructed and As per PT/OT instructions Patient Instructions: Aspirin (By mouth), Oxycodone, Rapid Release (By mouth), Celecoxib (By mouth), Acute Wound Care (DC), Total Hip Replacement (GEN), Joint Replacement Stoplight, Opioid Safety, Post Anesthesia Care Activity Restrictions/Additional Instructions: Posterior precautions. Maintain current dressing until it comes off on its own. Do not soak your hip in water. You may shower as long as the dressing is sealed on your hip. Weightbearing as tolerated. Discharge Attestations Time Spent in Discharge Care*: greater than 30 min Status at Discharge: Cognitive status at discharge: cognitively intact , Behavioral status at discharge: cooperative , Quality Metrics Clinical Quality Measures [ No reported AMI, CVA or VTE this stay] Coding Level of Care Code Acute Code for Chg Fwd Diagnoses Avascular necrosis of bone of left hip M87.052 Primary osteoarthritis of left hip M16.12 Osteoarthritis type: primary S/P ORIF (open reduction internal fixation) fracture Z98.890; Z87.81 Status post total hip replacement, left Z96.642
== END 2024-01-10 15:58 | disposition home or self-care (01) ==
LOC: MEDSURG 15:08
PROVIDERS: Nurse Practitioner; Admitting Provider Specialist; PCP Registered Nurse; Visit Provider Specialist
PROC: (CPT 27130; principal; 2024-01-09 10:50)
DX: M87.052 Idiopathic aseptic necrosis of left femur (principal); M16.12 Unilateral primary osteoarthritis, left hip; Z98.890 Other specified postprocedural states; I10 Essential (primary) hypertension
CPT/HCPCS: 27130; 36415; 51702; 72170; 80048; 85025; 87070; 87075; 87205; 88307; 88311; 94640; 97110; 97116; 97161; 97165; 97530; C1776; G0378; J0131; J0690; J1171; J2371; J2405; J2704; J2710; J3010; J3370; J3490; J7030; J7040; J7613

== ENCOUNTER → 2024-01-22 11:17 | Outpatient (BNVA) | payer BC, MEDICAID, SELFPAY | PROVIDERS: PCP Registered Nurse; Visit Provider Specialist | DX: Z96.642 Presence of left artificial hip joint (principal); Z48.89 Encounter for other specified surgical aftercare | CPT/HCPCS: 73502 ==

== ENCOUNTER 2024-01-30 08:42 | Outpatient (CLI) | payer BC, MEDICAID, SELFPAY ==
[2024-01-30 09:01] VITALS: BMI 34.5
--- NOTE | 2024-01-30 09:03 | ECG_ITS ---
Ultracell Test Date: 2024-01-30 Pat Name: Bernardo Lyon Department: Room: Gender: Male Content Developer: : 1975 Requested By: Kathe Coppola Order Number: [id number] Pina MD: Kyle Brady M.D. Interpretive Statements Lung unchanged pre/post procedure; Intraprocedure shortess of breath; Symptoms resoled by discharge PROCEDURE: At the baseline, the EKG revealed normal sinus rhythm with some nonspecific ST changes.. The baseline heart was 80 bpm with a blood pressue of 145/87 mm of Hg Lexiscan was infused over a period of 20 seconds. A total of 0.4 milligrams of Lexiscan was infused. The stress phase was continued for a total of 5 minutes. Heart rate at the end of the stress phase was 94 bpm with a blood pressure 138/101 mm of Hg. The EKG at the peak infusion revealed no significant changes. Sestamibi was injected 20 seconds after the Lexiscan infusion. Heart rate at the end of the recovery phase was 91 bpm with a blood pressure of 141/93 mm of Hg. CONCLUSION: 1. No significant EKG changes with the LexiScan infusion 2. No LexiScan induced chest pain or cardiac arrhythmia 3. Normal blood pressure and heart rate response 4. Sestamibi/sestamibi perfusion scan pending; see separate report. Electronically Signed On 02-01-2024 09:13:32 RUBBER TUBING SPLICER by Kyle Brady M.D. [email or web address]
--- NOTE | 2024-01-30 09:04 | NMCV_ITS ---
NM dax perf SPECT r/s* [id number] CamronBernardo Age: 48 Gender: M : 1975 Exam Date: 01/30/2024 09:28 Ordering Phys: Kathe Coppola MD Technologist: AUREA Ovalles Exam Location: [facility] Indications: cp STRESS TEST Please see separate stress test report in [facility] for full findings IMAGE PROTOCOL Rest/Stress 1 Lexiscan Day Radiopharmaceutical Dose (mCi) Administration Site Administered by Rest: Tc-99m 10.7 IV AUREA Ovalles Sestamibi Stress:Tc-99m 32.7 IV AUREA Null Sestamibi Rest: 30-Jan-2024 60 Discovery 630 Stress: 30-Jan-2024 30 Discovery 630 0.4mg Lexiscan. Images obtained in supine and prone position. SPECT RESULTS Technical Quality: Good Raw Data Analysis: Normal Image Corrections: No attenuation or motion correction applied Summed Stress Score: 0 Summed Rest Score: 0 Summed Difference Score: 0 PERFUSION FINDINGS Uniform myocardial tracer uptake with no significant perfusion abnormalities FUNCTIONAL RESULTS (calculated via Gated SPECT) Stress Image LV EF (%): 80 Stress EDV (mL):76 TID: 1.08 Stress ESV (mL):15 FUNCTIONAL FINDINGS: Segmental wall motion analysis revealing no gross wall motion abnormalities IMPRESSIONS 1. Myocardial perfusion imaging revealing uniform myocardial tracer uptake with no significant perfusion abnormalities. 2. Normal LV ejection fraction of 80%. 3. LV wall motion analysis revealing no gross wall motion abnormalities 4. Normal LV volume Low probability for coronary ischemia, based on the above findings Dr Kyle Brady MD FACC (Electronically Signed) Final Date: 30 January 2024 12:33 S
[2024-01-30] MEDS: regadenoson 0.4 Mg/5 ml Syringe IVP (10:09)
[2024-01-30 10:26] VITALS: BP 141/93; PULSE 92
== END 2024-01-30 08:43 | disposition home or self-care (01) ==
LOC: CDL 08:43
PROVIDERS: PCP Registered Nurse; Visit Provider Family Medicine
DX: Z01.818 Encounter for other preprocedural examination (principal); R94.31 Abnormal electrocardiogram [ECG] [EKG]; R06.02 Shortness of breath
CPT/HCPCS: 36415; 78452; 93017; 96374; A9500; J2785

== ENCOUNTER → 2024-04-06 11:11 | Outpatient (BNVA) | payer BC, MEDICAID, SELFPAY | PROVIDERS: PCP Registered Nurse; Visit Provider Specialist | DX: Z96.642 Presence of left artificial hip joint (principal); Z98.890 Other specified postprocedural states; M87.052 Idiopathic aseptic necrosis of left femur; M16.12 Unilateral primary osteoarthritis, left hip | CPT/HCPCS: 73502 ==

== ENCOUNTER → 2024-04-15 12:57 | Outpatient (BNVA) | payer BC, MEDICAID, SELFPAY | PROVIDERS: PCP Registered Nurse; Visit Provider Specialist | DX: M16.11 Unilateral primary osteoarthritis, right hip (principal) | CPT/HCPCS: 73502 ==

== ENCOUNTER 2024-04-22 10:26 | Outpatient (CLI) | payer BC, MEDICAID, SELFPAY ==
[2024-04-22 10:57] LABS: Basophils # 0.1 10^3/uL (0.0-0.1); Basophils % 0.8 %; Eosinophils # 0.2 10^3/uL (0.0-0.8); Eosinophils % 2.6 %; Hematocrit 46.6 % (37-53); Lymphocytes # 1.7 10^3/uL (0.8-4.8); Lymphocytes % 21.4 %; Mean Corpuscular Volume 99.8 fl (82-101); Mean Platelet Volume 9.3 fL (7.4-10.4); Monocytes # 0.7 10^3/uL (0.2-0.9); Monocytes % 8.4 %; Neutrophils # 5.29 10^3/uL (1.8-7.7); Neutrophils % 66.3 %; Nucleated Red Blood Cells % 0 %; Platelet Count 182 10^3/cmm (157-399); Red Blood Count 4.67 10^6/uL (3.85-5.65); Red Cell Distribution Width 13.9 % (12.1-15.1); White Blood Count 7.98 10^3/uL (3.29-11.43)
[2024-04-22 11:03] LABS: Bilirubin Urine 1+ (Negative); Blood Urine Negative (Negative); Glucose Urine UA Negative (Normal); Ketones Urine Trace (Negative); Leukocyte Esterase Urine Trace (Negative); Nitrate Urine Negative (Negative); Protein Urine 1+ (Negative); Specific Gravity, Urine 1.024 (1.005-1.030); Urine Appearance Clear (CLEAR); pH Urine 6.5 (5-7)
[2024-04-22 11:05] LABS: Add Urine Microscopic? YES; Bacteria Urine None Seen /hpf; RBC Urine 0-2 /hpf (0-2); Squamous Epithelial Cell Urine 0-5 /hpf (0-5); WBC Urine 0-5 /hpf (0-5)
[2024-04-22 11:06] LABS: Urine Color Dark Yellow (Yellow)
[2024-04-22 11:07] LABS: Add Urine Culture? No
[2024-04-22 11:18] LABS: Alanine Aminotransferase 65 U/L (0-41); Albumin Level 4.2 g/dL (3.5-5.2); Alkaline Phosphatase 129 U/L (40-130); Aspartate Amino Transferase 106 U/L (0-40); Blood Urea Nitrogen 6 mg/dL (6-20); Calcium 9.4 mg/dL (8.5-10.5); Carbon Dioxide 27 mmol/L (22-29); Chloride 100 mmol/L (98-107); Globulin 3.8 g/dL (1.3-4.6); Glomerular Filtration Rate 102.7 mL/min (90-130); Glucose 106 mg/dL (65-115); Osmolality Calculated 286 mOsm/kg (285-295); Sodium 139 mmol/L (136-145); Total Bilirubin 0.8 mg/dL (0.15-1.2)
== END 2024-04-22 10:27 | disposition home or self-care (01) ==
LOC: LAB 10:27
PROVIDERS: Absent Provider Family Medicine; PCP Registered Nurse; Visit Provider Specialist
DX: M25.559 Pain in unspecified hip (principal)
CPT/HCPCS: 36415; 80053; 81001; 85025

== ENCOUNTER 2024-05-12 21:46 | Inpatient (IN) | payer BC, SELFPAY ==
[2024-05-12 21:48] VITALS: BP 180/98; PULSE 137; RESP 22; TEMP 36.6; O2SAT 93; BMI 32.8
--- NOTE | 2024-05-12 21:59 | ECG_ITS ---
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: : 1975 Requested By: Fadia Lr Order Number: [id number] Pina MD: ANNY DELACRUZ Measurements Intervals Rea Rate: 118 P: 42 TN: 163 QRS: 67 QRSD: 85 T: 43 QT: 437 QTc: 613 Interpretive Statements SINUS TACHYCARDIA LEFT ATRIAL ENLARGEMENT [-0.15mV P-WAVE IN V1/V2] MODERATE ST DEPRESSION [0.05+ mV ST DEPRESSION] Compared to ECG 01/01/2024 09:49:44 Atrial abnormality now present ST (T wave) deviation now present Sinus rhythm no longer present Myocardial infarct finding no longer present Electronically Signed On 05-12-2024 23:29:49 FOREST SUPERVISOR by ANNY DELACRUZ [id number]
[2024-05-12 22:15] LABS: Basophils # 0.1 10^3/uL (0.0-0.1); Basophils % 0.9 %; Eosinophils # 0.3 10^3/uL (0.0-0.8); Eosinophils % 2.2 %; Hematocrit 47.2 % (37-53); Lymphocytes # 2.2 10^3/uL (0.8-4.8); Mean Corpuscular HGB Conc 33.5 g/dL (30-55); Mean Corpuscular Volume 98.5 fl (82-101); Mean Platelet Volume 9.2 fL (7.4-10.4); Monocytes # 0.8 10^3/uL (0.2-0.9); Monocytes % 6.5 %; Neutrophils # 8.26 10^3/uL (1.8-7.7); Neutrophils % 70.3 %; Nucleated Red Blood Cells % 0 %; Platelet Count 304 10^3/cmm (157-399); Red Blood Count 4.79 10^6/uL (3.85-5.65); Red Cell Distribution Width 14.1 % (12.1-15.1); White Blood Count 11.74 10^3/uL (3.29-11.43)
--- NOTE | 2024-05-12 22:17 | W.ED.PSYCHS ---
HPI - Psych General: Chief Complaint: Psychiatric Symptoms Stated Complaint: aggressive Time Seen by Provider: 05/12/24 21:48 History of Present Illness: This is a 48-year-old man with a history of depression that has required inpatient admissions secondary to suicidal thoughts in the past who presents to the emergency room with police after they were called to his residence for domestic. Apparently he was screaming and yelling at his girlfriend and they had concern for the kids who were distraught and had been walking down the road. Apparently there he seemed very manic. Here he continues to rant loudly. I tried to speak with him a couple of times and cannot speak a single word without him yelling at me. Police are concerned that this is a manic episode and that he is a psychiatric problem and a danger to himself and others. Multiple affidavits were filled out. Related Data Home Medications ?Medication ?Instructions ?Recorded ?Confirmed vitamin B complex 1 tab PO DAILY 09/23/23 05/08/24 cyclobenzaprine 10 mg tablet 10 mg PO BEDTIME PRN Muscle Spasm 11/09/23 05/08/24 Previous Rx's ?Medication ?Instructions ?Recorded albuterol sulfate 90 mcg/actuation 1 inh inhalation Q6H PRN shortness 11/09/23 aerosol inhaler (Ventolin HFA) of breath or wheezing #6.7 grams pantoprazole 40 mg tablet,delayed 40 mg PO DAILY #30 tabs 04/22/24 release Allergies Allergy/AdvReac Type Severity Reaction Status Date / Time codeine Allergy Severe shortness Verified 05/12/24 21:53 of breath avocado Allergy Unknown Verified 05/12/24 21:53 banana Allergy Unknown Verified 05/12/24 21:53 Review of Systems General: Reports: ROS unobtainable due to mental status PFSH ED PFSH: Medical History Arthralgia of right elbow Obstructive sleep apnea Insomnia Hypersomnia Elevated d-dimer Osteoarthritis of left hip Chronic low back pain with left-sided sciatica Closed subcapital fracture of femur HTN (hypertension) Depression Surgical History H/O removal of cyst left arm S/P ORIF (open reduction internal fixation) fracture DOS 02/12/23 - Open reduction internal fixation left subcapital hip fracture utilizing cannulated screws x 3. Family History Grandfather CAD (coronary artery disease) Father Cancer Lung disease copd Sister Lung disease asthma Denies family history of Diabetes Chronic kidney disease (CKD) Hypertension Stroke Social History Smoking and tobacco/nicotine status: current every day tobacco/nicotine user Alcohol intake: current Alcohol intake frequency: few times a month Alcohol type: beer Substance/Drug Use: never Lives independently: No Household members: spouse Marital status: Current occupational status: employed Sexually active: Yes Do you think of yourself as: Straight/Heterosexual Current gender identity: Male Physical Exam Narrative: EXAM NARRATIVE: General: Alert, no acute distress. Skin: Warm, dry. Head: Normocephalic, atraumatic. Neck: Supple, trachea midline. Eye: Extraocular movements are intact. Ears, nose, mouth and throat: mucosa moist. Cardiovascular: Regular, Normal peripheral perfusion. Respiratory: Lungs are clear to auscultation, respirations are non-labored, breath sounds are equal, Symmetrical chest wall expansion. Gastrointestinal: Soft, Nontender, Non distended Musculoskeletal: Normal ROM, no deformity. Neurological: Alert and oriented, No focal neurological deficit observed. Psychiatric: Patient is belligerent, yelling, he does appear somewhat manic. He will not stop yelling to hear any explanations or anything anyone has to say. The other ER doc has tried to talk to him along with nursing and police. He continues to just yell. Course Vital Signs: Vital signs: Vital Signs Temperature 97.8 F 05/12/24 21:48 Pulse Rate 137 H 05/12/24 21:48 Respiratory Rate 22 H 05/12/24 21:48 Blood Pressure 180/98 05/12/24 21:48 Pulse Oximetry 93 05/12/24 21:48 Oxygen Delivery Me thod Room Air 05/12/24 21:48 MDM - Psych Medical Decision Making Medical decision making: Differential diagnosis for patient with reported psychosis with plan for psychiatric admission including but not limited to and based on the above HPI, review of systems and physical exam: concerns for infection, alcohol intoxication, cardiac issues or other medical problems prior to psychiatric admission. Orders placed to evaluate differential diagnosis based on the above differential, HPI and physical exam labwork, ekg ordered to evaluate the pathologies and to clear the patient medically prior to psychiatric admission EKG: Time 2233. Rate 118. Sinus tachycardia, No ST-T changes, no ectopy, normal SD & QRS intervals, This was reviewed and interpreted by myself the ER physician at 2238 Lab Review: Laboratory results were reviewed and interpreted by myself the emergency room physician. - Medically cleared. - EKG shows no ischemic changes. - Blood alcohol level is 65 ?Salicylate and Tylenol are negative -Drug screen and urinalysis are pending at admission - No anemia. - BUN and creatinine are within normal limits. I reviewed the patient's medical record. Consultation: I spoke with Dr. Fernandez who is on-call for psychiatry agrees to admission Assessment and plan: Psychosis Maya ? IM Fidel and Demian in the emergency room -Admission to neuropsychiatric unit for continued evaluation and treatment. - All lab work was reviewed and interpreted personally by myself, the ER physician - Evaluation and treatment of this problem were appropriate in the emergency setting Lab Data 05/12/24 22:01 05/12/24 22:01 Laboratory Results WBC 11.74 10^3/uL (3.29-11.43) H 05/12/24 22: RBC 4.79 10^6/uL (3.85-5.65) 05/12/24 22:01 Hgb 15.80 g/dL (11.27-16.99) 05/12/24 22: Hct 47.2 % (37-53) 05/12/24 22: MCV 98.5 fl (82-101) 05/12/24 22:01 MCH 33.0 pg (27-33) 05/12/24 22:01 MCHC 33.5 g/dL (30-55) 05/12/24 22: RDW 14.1 % (12.1-15.1) 05/12/24 22:01 Plt Count 304 10^3/cmm (157-399) 05/12/24 22:01 MPV 9.2 fL (7.4-10.4) 05/12/24 22:01 Neut % (Auto) 70.3 % 05/12/24 22: Lymph % (Auto) 19.0 % 05/12/24 22:01 Bremer % (Auto) 6.5 % 05/12/24 22:01 Eos % (Auto) 2.2 % 05/12/24 22:01 Baso % (Auto) 0.9 % 05/12/24 22:01 Neut # (Auto) 8.26 10^3/uL (1.8-7.7) H 05/12/24 22:01 Lymph # (Auto) 2.2 10^3/uL (0.8-4.8) 05/12/24 22:01 Bremer # (Auto) 0.8 10^3/uL (0.2-0.9) 05/12/24 22:01 Eos # (Auto) 0.3 10^3/uL (0.0-0.8) 05/12/24 22:01 Baso # (Auto) 0.1 10^3/uL (0.0-0.1) 05/12/24 22:01 Nucleated RBC % (auto) 0 % 05/12/24 22: Nucleated RBCs # 0.0 /100WBC 05/12/24 22:01 Sodium 137 mmol/L (136-145) 05/12/24 22:01 Potassium 3.2 mmol/L (3.5-5.1) L 05/12/24 22: Chloride 101 mmol/L (98-107) 05/12/24 22: Carbon Dioxide 15 mmol/L (22-29) L 05/12/24 22:01 Anion Gap 24.2 (5-19) H 05/12/24 22: BUN 6 mg/dL (6-20) 05/12/24 22: Creatinine 1.1 mg/dL (0.7-1.2) 05/12/24 22:01 GFR Calculation 71.1 mL/min (90-130) L 05/12/24 22: Glucose 125 mg/dL (65-115) H 05/12/24 22: Calculated Osmolality 283 mOsm/kg (285-295) L 05/12/24 22: Calcium 9.3 mg/dL (8.5-10.5) 05/12/24 22:01 Total Bilirubin 0.5 mg/dL (0.15-1.2) 05/12/24 22:01 AST 100 U/L (0-40) H 05/12/24 22:01 ALT 69 U/L (0-41) H 05/12/24 22:01 Alkaline Phosphatase 151 U/L (40-130) H 05/12/24 22:01 Total Protein 8.4 g/dL (6.6-8.7) 05/12/24 22:01 Albumin 4.3 g/dL (3.5-5.2) 05/12/24 22:01 Globulin 4.1 g/dL (1.3-4.6) 05/12/24 22:01 TSH 5.00 uIU/mL (0.27-4.20) H 05/12/24 22:01 Salicylates < 0.3 mg/dL (3-10) L 05/12/24 22:01 Acetaminophen < 5.0 ug/mL (10-30) L 05/12/24 22:01 Ethyl Alcohol 65 mg/dL (0-10) H 05/12/24 22:01 No radiology studies performed this visit Discharge Plan Discharge Patient Disposition: Admitted As Inpatient Clinical Impression: Acute psychosis Condition: Stable Coding Level of Care Code ED Candy Wrapping Machine Operator for Maryam Emmanuel
[2024-05-12] MEDS: LORazepam 2 mg/mL INJ 1 mL IM (22:24)
[2024-05-12] MEDS: ziprasidone 20 mg/mL SDV IM (22:24)
[2024-05-12] MEDS: water for injection-sterile 10 ML 60 ML (22:25)
[2024-05-12 22:41] LABS: Alanine Aminotransferase 69 U/L (0-41); Albumin Level 4.3 g/dL (3.5-5.2); Alcohol Level 65 mg/dL (0-10); Alkaline Phosphatase 151 U/L (40-130); Anion Gap 24.2 (5-19); Aspartate Amino Transferase 100 U/L (0-40); Blood Urea Nitrogen 6 mg/dL (6-20); Calcium 9.3 mg/dL (8.5-10.5); Carbon Dioxide 15 mmol/L (22-29); Chloride 101 mmol/L (98-107); Creatinine Clr Calc Pharmacy 100.9015; Globulin 4.1 g/dL (1.3-4.6); Glomerular Filtration Rate 71.1 mL/min (90-130); Glucose 125 mg/dL (65-115); Osmolality Calculated 283 mOsm/kg (285-295); Potassium 3.2 mmol/L (3.5-5.1); Sodium 137 mmol/L (136-145); Total Bilirubin 0.5 mg/dL (0.15-1.2); Total Protein 8.4 g/dL (6.6-8.7)
[2024-05-12 22:51] LABS: Acetaminophen < 5.0 ug/mL (10-30); Salicylate < 0.3 mg/dL (3-10)
--- NOTE | 2024-05-12 23:30 | PC.NURSE ---
96 HH Pt served with 96 HH by this RN and security. Pt A&Ox3. Pt rambling and yelling continuously, this RN had to interrupt pt multiple times in order to read pt rights. Pt not yelling at staff, pt yelling because he was arrested and doesn't understand why he was arrested. Pt redirected multiple times, pt asked to control himself, pt unable to preform simple tasks without being side tracked by his own yelling. Multiple deescalation attempts made by staff. Pt was not violent or physical with staff, pt stated Im not suicidal, Im not trying to hurt anyone! Im just trying to understand and no one is talking to me! Multiple staff members, including 2 physicians, trying to assess and talk to pt, but due to pts manic yelling and inability to follow command, effective communication with pt not possible at this time.
[2024-05-13 00:07] VITALS: BP 172/81; PULSE 91; O2SAT 98
[2024-05-13 00:47] VITALS: BP 137/86; PULSE 114; RESP 18; TEMP 36.4; O2SAT 94
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
[2024-05-13 06:00] VITALS: BP 134/78; PULSE 87; RESP 20; O2SAT 98
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
--- OUTSIDE RECORDS SUMMARY | 2024-05-13 07:41 | XMS_ITS | Patient Health Record ---
Author Organization [facility] Address [address] [place] [address] Care Team Providers Care Geospatial Program Management Officer Name Role Phone WONG EDUARDO Unavailable [phone] Wong Mariee Unavailable [phone] Reason For Referral No Information Encounters Encounter Location Date Provider Diagnosis [facility] [address] [facility] [place] [address] 11/13/2023 WONG EDUARDO Plan Of Treatment No Information Insurance Providers Payer Name Payer Address Payer Phone Subscriber Number Group Number Insured Name Patient Relationship to Insured Coverage Start Date Coverage End Date [facility] [address] [address] [place], [place] [id number] Bernardo Lyon Self - patient is the insured
--- OUTSIDE RECORDS SUMMARY | 2024-05-13 07:41 | XMS_ITS | Encounter Summary ---
Author Organization [facility] Address [address] [place] [address] Care Team Providers Care Loans Officer Name Role Phone Brandon Awan MD Primary Care Provider [phone] Encounter Details Date Type Department Care Team (Latest Contact Info) Description 04/23/2003 Outpatient Historical [facility] [address] 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
--- OUTSIDE RECORDS SUMMARY | 2024-05-13 07:41 | XMS_ITS | Clinical Summary ---
Author Organization [facility] Address [address] [place] [id number] Care Team Providers Care Lift Electrician Name Role Phone Brandon Awan MD Primary Care Provider [phone] Allergies Active Allergy Reactions Criticality Noted Date Comments Codeine Nausea and Vomiting Low 10/01/2011 Medications benzonatate (TESSALON) 100 mg capsuleIndicati ons:Chronic cough Take 1 Capsule (100 mg) by mouth 3 times daily as needed for Cough. 30 Capsule 1 05/07/2018 Active ibuprofen (MOTRIN) 800 mg tablet Take 1 Tablet (800 mg) by mouth every 8 hours as needed for Pain, Mild. 60 Tablet 1 05/07/2018 Active Active Problems Problem Noted Date Diagnosed Date Chronic cough 05/07/2018 Tobacco use 11/22/2015 Resolved Problems Problem Noted Date Diagnosed Date Resolved Date GERD (gastroesophageal reflux disease) 06/03/2008 05/07/2018 Immunizations Immunization Administration Dates Next Due (TDVAX)(7 YRS UP) TETANUS AN D DIPHTHERIA TOXOIDS, ADSORBED (2 LF OF TETANUS TOXOID AND 2 LF OF DIPHTHERIA TOXOID), 0.5ML (PF), IM 05/29/2004 Hepatitis A Vaccine 12/13/2004,07/03/2004,2004 Family History Medical History Relation Name Comments Cancer Father Heart Failure Maternal Grandfather Diabetes Paternal Uncle Asthma Sister Relation Name Status Comments Brother Alive Father Alive Maternal Aunt Maternal Grandfather Maternal Grandmother Maternal Uncle Alive Mother Alive Other Paternal Aunt Alive Paternal Grandfather Paternal Grandmother Paternal Uncle Alive Sister Alive Social History Tobacco Use Types Packs/Day Years Used Date Smoking Tobacco: Every Day Cigarettes 1 6 Smokeless Tobacco: Never Tobacco Cessation:Ready to Q uit: Yes; Counseling Given: Yes Alcohol Use Standard Drinks/Week Comments No 0 (1 standard drink = 0.6 oz pur e alcohol) rarely Sex and Gender Information Value Date Recorded Sex Assigned at Not on file Legal Sex Male 5:51 AM BLENDER HELPER Gender Identity Not on file Sexual Orientation Not on file Occupation Industry Job Start Date Job End Date Not on file Not on file Not on file Not on file Last Filed Vital Signs Vital Sign Reading Time Taken Comments Blood Pressure 130/70 05/23/2018 3:36 PM BLENDER HELPER Pulse 109 05/07/2018 4:01 PM BLENDER HELPER Temperature 36.4 ??C (97.5 ??F) 05/07/2018 4:01 PM CS T Respiratory Rate 18 05/07/2018 4:01 PM BLENDER HELPER Oxygen Saturation 98% 05/07/2018 4:01 PM BLENDER HELPER Inhaled Oxygen Concentration - - Weight 93.1 kg (205 lb 3.2 oz) 05/23/2018 3:36 P M BLENDER HELPER Height 180.3 cm (5' 11 ) 05/23/2018 3:36 PM BLENDER HELPER Body Mass Index 28.62 05/23/2018 3:36 PM BLENDER HELPER Plan of Treatment Health Maintenance Due Date Last Done Comments PNEUMOCOCCAL VACCINE 0-64 YEARS (1 of 2 - PCV) 981 HEPATITIS B VACCINES (1 of 3 - 19+ 3-dose series) 11/18 DTAP/TDAP/TD VACCINES (1 - Tdap) 05/30/2004 05/30/19 05 COLORECTAL SCREENING 12/16/2019 Colorectal Cancer Screening 12/16/2019 FIT-DNA Q 3 years 12/16/2019 FIT/FOBT Q 1 year 12/16/2019 Flex Sig/CT Colonography Q 5 years 12/16/2019 INFLUENZA VACCINE (#1) 2023 Preventative Visit- Commercial 03/18/2024 Insurance PPO Care Teams Lift Electrician Relationship Specialty Start Date End Date Brandon Awan MD [address] [facility] [address] [place] [address] PCP - General Family Practice 05/07/18
--- OUTSIDE RECORDS SUMMARY | 2024-05-13 07:41 | XMS_ITS ---
Author Organization [facility] Address [address] [facility] [place] [address] Care Team Providers Care Package Worker Name Role Phone DANI EDUARDO Unavailable [phone] Dani Mariee Unavailable [phone] REASON FOR VISIT vas consult Encounters Encounter Location Date Provider Diagnosis [facility], [facility] [address] [facility] [place] [place] [address] 12/06/2023 Dani Mariee Plan Of Treatment No Information Progress Notes * Bernardo LYON DDOB:[birth year] (48 yo M)Acc No.[id number]:12/06/2023 Progress Notes Patient:?Bernardo LYON Provider:?Dani Mariee APRN :1975???Age:47 Y???Sex:Male Je e:12/06/2023 Address:[address] [place] [address], [address] Subjective: * Chief Complaints: * ???1. Vas consult. * Medical History:? Objective: * Vitals:? Assessment: Plan: * Treatment: * Billing Information: * Visit Code:? * Procedure Codes:? * Electronic signature of Quinton Mariee APRN on 05/13/2024 at 07:41 AM CRISIS NURSE Sign off status: Pending * Provider:Tenisha Mariee APRN Date:?11/17 Generated for [place]/eTransmitting on:?05/13/2024 07:41 AM CRISIS NURSE
--- OUTSIDE RECORDS SUMMARY | 2024-05-13 07:41 | XMS_ITS ---
Author Organization [facility] Address [address] [place] [address] Care Team Providers Care Boat Officer Name Role Phone EDUARDO, WONG Best [phone] REASON FOR VISIT Referral Encounters Encounter Location Date Provider Diagnosis [facility] [address] [facility] [place] [address] 11/13/2023 WONG EDUARDO Plan Of Treatment No Information Progress Notes * Bernardo LYONDOB:1975 (47 yo M)Acc No.[id number]:11/13/2023 Patient:?Bernardo LYON :1975???Age:47 Y???Sex:Male Address:[address] [place] [address], [address], [place], [address] * true * Date:? Generated for [place]/eTransmitting on:?05/13/2024 07:41 AM CAREER DEVELOPMENT MANAGER
--- OUTSIDE RECORDS SUMMARY | 2024-05-13 07:41 | XMS_ITS | Clinical Summary ---
Author Organization [facility] Address [address] [facility] [address] [place]ry: Epic Prelude ADT [place] [address] Care Team Providers Care Conditioner Tender Name Role Phone Brandon Awan MD Primary Care Provider [phone] Allergies Active Allergy Reactions Criticality Noted Date Comments Codeine Nausea and Vomiting Low 10/01/2011 Medications buPROPion (WELLBUTRIN) 100 mg tablet Take 100 mg by mouth 2 times daily. Active cyclobenzaprine (FLEXERIL) 10 mg tablet Take 1 Tablet (10 mg) by mouth daily at bedtime. 20 Tablet 09/16/2020 Active losartan potassium (LOSARTAN ORAL) Take by mouth. Active ondansetron (ZOFRAN ODT) 4 mg Tablet, Rapid Dissolve Take 1 Tablet (4 mg) by mouth every 8 hours as needed for Nausea/Emesis . Dissolve tablet on top of tongue, then swallow with saliva. 30 Tablet 06/18/2021 Active Active Problems Problem Noted Date Diagnosed Date Chronic cough 05/07/2018 Tobacco use 11/22/2015 Resolved Problems Problem Noted Date Diagnosed Date Resolved Date GERD (gastroesophageal reflux disease) 06/03/2008 05/07/2018 Encounters Date Type Department Care Team Description 03/24/2024 External Device Data [facility] ABSTRACTION Provider, Abstract from Last 3 Months Immunizations Immunization Administration Dates Next Due (TDVAX)(7 [...] Types Packs/Day Years Used Date Smoking Tobacco: Some Days Cigarettes Smokeless Tobacco: Never Alcohol Use Standard Drinks/Week Comments Yes 1 (1 standard drink = 0.6 oz pur e alcohol) occasionally Sex and Gender Information Value Date Recorded Sex Assigned at Not on file Legal Sex Male 12:02 AM BAR[place] Gender Identity Not on file Sexual Orientation Not on file Last Filed Vital Signs Vital Sign Reading Time Taken Comments Blood Pressure 142/86 06/18/2021 2:30 AM CDT Pulse 82 06/18/2021 2:30 AM CDT Temperature 36.4 ??C (97.5 ??F) 06/18/2021 1:17 AM CD T Respiratory Rate 25 06/18/2021 2:30 AM CDT Oxygen Saturation 95% 06/18/2021 2:30 AM CDT Inhaled Oxygen Concentration - - Weight 107 kg (236 lb) 06/18/2021 1:17 AM CDT Height 180.3 cm (5' 11 ) 06/18/2021 1:17 AM CDT Body Mass Index 32.92 06/18/2021 1:17 AM CDT Plan of Treatment Health Maintenance Due Date Last Done Comments Pre-Diabetes and Diabetes Screening 1975 HEPATITIS B VACCINES (1 of 3 - 19+ 3-dose series) 11/18 Preventative Visit-Managed Medicaid 1993 DTAP/TDAP/TD VACCINES (1 - Tdap) 05/30/2004 05/30/19 05 COLORECTAL SCREENING 12/16/2019 Colorectal Cancer Screening 12/16/2019 FIT-DNA Q 3 years 12/16/2019 FIT/FOBT Q 1 year 12/16/2019 Flex Sig/CT Colonography Q 5 years 12/16/2019 INFLUENZA VACCINE (#1) 2023 Insurance [id number] [place] [address] [facility] MEDICAID MEDICAID [place] Care Teams Conditioner Tender Relationship Specialty Start Date End Date Brandon Awan MD [address] [address] PCP - General Family Practice 05/07/18
[2024-05-13] MEDS: folic acid 1 mg Tablet PO (08:46)
[2024-05-13] MEDS: pantoprazole DR 40 mg Tablet PO (08:46)
[2024-05-13] MEDS: multivitamin therapeutic Tablet 1 TAB PO (08:46)
[2024-05-13] MEDS: thiamine 100 mg Tablet PO (08:46)
[2024-05-13] MEDS: nicotine 4 mg lozenge MUCOUS MEM ×4 (08:50→19:42)
[2024-05-13 14:00] VITALS: BP 150/100; PULSE 108; RESP 17; TEMP 36.4; O2SAT 96
[2024-05-13] MEDS: LORazepam 2 mg Tablet PO (17:03)
[2024-05-13 17:37] LABS: Bilirubin Urine Negative (Negative); Blood Urine Negative (Negative); Glucose Urine UA Negative (Normal); Ketones Urine Trace (Negative); Leukocyte Esterase Urine Negative (Negative); Nitrate Urine Negative (Negative); Protein Urine Negative (Negative); Specific Gravity, Urine 1.013 (1.005-1.030); Urine Appearance Clear (CLEAR); Urine Color Yellow (Yellow); pH Urine 6.5 (5-7)
[2024-05-13 17:50] LABS: Amphetamines Screen Urine Negative (Negative); Barbiturates Screen Urine Negative (Negative); Benzodiazepines Screen Urine Positive (Negative); Cocaine Screen Urine Negative (Negative); Opiate Screen Urine Negative (Negative); PCP Screen Urine Negative (Negative); THC Screen Urine Positive (Negative)
[2024-05-13 18:01] LABS: Add Urine Culture? No; RBC Urine RARE /hpf (0-2)
[2024-05-13 20:20] VITALS: BP 161/79; PULSE 110; RESP 20; O2SAT 96
[2024-05-13] MEDS: trazodone 50 mg Tablet PO (21:16)
[2024-05-14 00:11] VITALS: BP 129/89; PULSE 88; RESP 18; O2SAT 97
[2024-05-14 04:00] VITALS: BP 125/82; PULSE 86; RESP 17; O2SAT 97
[2024-05-14 08:00] VITALS: BP 127/84; PULSE 87; RESP 18; TEMP 36.8; O2SAT 95
[2024-05-14] MEDS: hyDROXYzine 25 mg Capsule 50 MG PO ×2 (08:33→20:00)
[2024-05-14] MEDS: nicotine 4 mg lozenge MUCOUS MEM ×6 (08:33→19:55)
[2024-05-14] MEDS: pantoprazole DR 40 mg Tablet PO (08:33)
[2024-05-14] MEDS: thiamine 100 mg Tablet PO (08:33)
[2024-05-14] MEDS: multivitamin therapeutic Tablet 1 TAB PO (08:33)
[2024-05-14] MEDS: folic acid 1 mg Tablet PO (08:33)
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
[2024-05-14 12:00] VITALS: BP 118/78; PULSE 87; RESP 20; TEMP 36.6; O2SAT 97
[2024-05-14 16:00] VITALS: BP 152/104; PULSE 112; RESP 18; TEMP 37.1; O2SAT 95
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
[2024-05-14] MEDS: ibuprofen 600 mg Tablet PO (19:54)
[2024-05-14 20:00] VITALS: BP 132/91; PULSE 103; RESP 18; TEMP 36.5; O2SAT 94
[2024-05-14] MEDS: trazodone 50 mg Tablet PO ×2 (20:00→21:59)
[2024-05-15 06:00] VITALS: BP 137/87; PULSE 79; RESP 20; TEMP 36.6; O2SAT 98
[2024-05-15] MEDS: folic acid 1 mg Tablet PO (07:42)
[2024-05-15] MEDS: thiamine 100 mg Tablet PO (07:42)
[2024-05-15] MEDS: multivitamin therapeutic Tablet 1 TAB PO (07:42)
[2024-05-15] MEDS: nicotine 21 mg Patch 1 PATCH TRANSDERMA (07:45)
[2024-05-15] MEDS: pantoprazole DR 40 mg Tablet PO (07:48)
[2024-05-15] MEDS: ibuprofen 600 mg Tablet PO (08:59)
--- NOTE | 2024-05-15 13:55 | P.NPUDS_ITS ---
Diagnoses at Discharge Discharge Diagnosis (1) Major depressive disorder, single episode, severe: Status: Acute (2) Pain disorder associated with psychological and physical factors: Status: Acute (3) Alcohol use: Status: Resolved (4) Essential hypertension: Status: Acute (5) Fracture of hip: Status: Acute Qualifiers: Encounter type: initial encounter Fracture type: closed Laterality: left Qualified Code(s): S72.002A - Fracture of unspecified part of neck of left femur, initial encounter for closed fracture (6) Marital/partner relational problem: Status: Acute Reason for Visit Reason for Visit: aggressive Brief History: History of Present Illness Bernardo Lyon is a 48 year old male who presented to the emergency department with the following report: Chief Complaint: Psychiatric Symptoms Stated Complaint: aggressive Time Seen by Provider: 05/12/24 21:48 History of Present Illness: This is a 48-year-old man with a history of depression that has required inpatient admissions secondary to suicidal thoughts in the past who presents to the emergency room with police after they were called to his residence for domestic. Apparently he was screaming and yelling at his girlfriend and they had concern for the kids who were distraught and had been walking down the road. Apparently there he seemed very manic. Here he continues to rant loudly. I tried to speak with him a couple of times and cannot speak a single word without him yelling at me. Police are concerned that this is a manic episode and that he is a psychiatric problem and a danger to himself and others. Multiple affi davits were filled out. He was admitted to the neuropsychiatric unit for definitive treatment of those issues. He is known to [facility] through a past inpatient services but no outpatient services. An excerpt of his previous discharge summary is included below for context. He presented to the emergency department with a blood alcohol of 65 but has had past emergency room visits where his blood alcohol was significantly higher. He presented today reporting: Chief complaint Involuntary psychiatric hold following a domestic incident and concerns about being perceived as a danger to self. History of the present complaint The patient reports a history of significant stress and anxiety related to various personal and familial issues. Approximately a year and two to three months ago, the patient experienced a severe hip injury, which required surgical intervention with pins. The pain from this injury was intense and poorly manage d, leading to feelings of despair. The patient recalls expressing a wish to be due to the severity of the pain while hospitalized, but clarifies that no such statements or threats were made during the current incident. The patient describes a recent series of stressful events, beginning with a vehicle breakdown that required immediate attention. This situation caused considerable stress, as the family was reliant on a single vehicle. Upon returning home, the patient discovered a chaotic scene involving his children and grandchildren, which exacerbated his stress levels. The children had created a large mess in the house, which the patient found particularly challenging to clean due to his physical limitations from the hip injury. The patient recounts an encounter with law enforcement that escalated unexpectedly. The police were called following an incident where the patient?s children had wandered off, which was reported by a passerby. 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 The patient expresses frustration and anger at the police's actions, feeling that they unjustly focused on him and disregarded his explanations. The patient denies any current suicidal ideation or intent to harm himself or others. He acknowledges feeling stressed and anxious, particularly due to the impending hip surgery and the disruption caused by the police intervention. The patient has a history of using bupropion and duloxetine for anxiety and stress management but discontinued these medications after a previous hip surgery when he felt they were no longer necessary. He reports that his anxiety and stress have increased over the past month as his hip condition has worsened. The patient also mentions a history of alcohol use, stating that he has significantly reduced his consumption over the past year. He occasionally consumes alcohol and Delta 9 chocolates to manage stress but denies any substance abuse issues. The patient emphasizes his role as a primary caregiver for his children and grandchildren, expressing a strong commitment to their well-being despite his physical and emotional challenges. Mental health history Previously hospitalized due to feelings related to poor pain management after h ip surgery, expressing a preference for over enduring severe pain. No threats made during the current incident. History of taking bupropion and duloxetine for anxiety and stress, but discontinued after previous hip surgery when symptoms improved. Reports increased stress and anxiety over the past month due to worsening hip pain while awaiting a second hip surgery. No current feelings of depression or suicidal ideation. No history of alcohol or drug abuse, though occasionally uses Delta 9 chocolates for relaxation. Social history Lives with girlfriend and children, including a 5-year-old with severe epilepsy, a 4-year-old, a 2-year-old, and a 7-month-old son. Has a total of seven children, with older children and grandchildren living upstairs in a duplex shared with ex-. Girlfriend works while he stays home to care for the children due to hip issues preventing him from working. Reports not drinking regularly, with occasional consumption of shots and Delta 9 chocolates for relaxation. Describes himself as gruff, similar to his father. 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 No current medication use for anxiety or stress, though previously on bupropion and duloxetine. Per his 03/15/2023 [facility] inpatient psychiatric discharge summary: Discharge Diagnosis (1) Major depressive disorder, single ep isode, severe: Status: Acute (2) Pain disorder associated with psycho logical and physical factors: Status: Acute (3) Alcohol use: Status: Acute Reason for Visit Reason for Visit: depression,SI Brief History: History of Present Illness Bernardo Lyon is a 47 year old male with no previous history of inpatient psychiatric hospitalizations who was brought to the emergency department after the patient's live-in girlfriend and mother of his children had been concerned about the patient's worsening depression and threats that the patient had made to hurt to kill himself. The patient was admitted to the neuropsychiatric unit for further evaluation and treatment. He reports that he has been increasingly frustrated and angry as he reports that he has been unable to manage the pain from his recent surgery in his hip in January of this year. The patient reports that he has been more depressed since his mother had approximately 5 months ago. He reports low energy, low motivation, and he Maria [place] Carmen, hypersomnia, increased crying spells, and problems with concentration. He reports no seasonal variability to his mood. He reports no diurnal variation. He does report having occasional suicidal thoughts but states that he is not had any plan. He did state that the pain after his surgery had complicated the matter as he has stated that he often feels like he would be better off not living if he had to manage the this amount of pain. He denied any history of gregorio. He denied any history of psychotic symptoms. He reports no history of drug or alcohol issues despite having a blood alcohol of 293 on admission. He had admitted to using alcohol that day to manage pain but described having no si gnificant history of alcohol abuse with no history of alcohol-related withdrawals. He reports no change in tolerance or increase in consumption of alcohol. Inpatient psychiatric history: None Outpatient psychiatric history: He reports recently seeing a therapist or psychiatrist Nabil Wyatt who had prescribed Prozac to help him for depression although he had reported having discontinued this because of headaches. He also reported having been prescribed Wellbutrin XL twice a day to manage smoking cessation. He is currently not receiving any outpatient treatment. Medical history: Hip pain (L), back pain,, hypertension Surgical history: Recent open reduction internal fixation of left subcapital hip from fracture using cannulated screws x 3, Medications: Amlodipine 2.5 mg daily, losartan 100 mg daily, meloxicam 15 mg daily, Protonix 40 mg daily Allergies: Codeine, avocados, bananas Legal history: None Drug and alcohol history: None; he reports no history of rehabilitation nor does he report any chronic use of alcohol. Family psychiatric history: None reported Social history: Patient was born in [place] and raised in [place] by his biological parents. He reports having a relatively happy childhood. He had reported no history of any learning problems. He graduated from [employer]. He reports that he had no history of sexual physical or emotional abuse. 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 He reports that he has 6 children and lives currently on a property in [place] that he rents along with his girlfriend who is the father of his 4 younger children. He has 1 brother and 1 sister. He was raised in an intact family. He reports that his mother had of lung cancer and his father had of kidney cancer. He reports that he continues to smoke cigarettes on a daily basis. He has been from his previous that he had been to for the last 27 years. Meds NPU Home Medications Medication Instructions Recorded Confirmed Last Taken Type amlodipine 2.5 mg tablet 2.5 mg PO DAILY 90 days #90 tabs 09/11/23 12/28/23 11/27/23 Rx losartan 100 mg ta blet 100 mg PO DAILY 90 days #90 tabs 11/26/22 03/14/23 02/11/23 Rx meloxicam 15 mg ta blet 15 mg PO DAILY #90 tabs 02/27/23 03/14/23 Unknown Rx pantoprazole 40 mg tablet,delayed 40 mg PO DAILY 03/14/23 03/14/23 Unknown History release (Protonix) Allergies Allergy/AdvReac Type Severity Reaction Status Date / Time codeine Allergy Severe shortness Verified 03/14/23 01:59 of breath avocado Allergy Unknown Verified 03/14/23 01:59 banana Allergy Unknown Verified 03/14/23 01:59 [facility] NPU Medical History Chronic low back pain with left-sided sciatica Closed subcapital fracture of femur HTN (hypertension) Depression Surgical History S/P ORIF (open reduction internal fixation) fracture DOS 02/12/23 - Open reduction internal fixation left subcapital hip fracture utilizing cannulated screws x 3. Family History Grandfather CAD (coronary artery disease)Father CancerLung disease copdSister Lung disease asthmaDenies family history of DiabetesChronic kidney disease (CKD)HypertensionStroke Social History Smoking and tobacco/nicotine status: current some day tobacco/nicotine user Alcohol intake: current Alcohol intake frequency: few times a month Alcohol type: beer Substance/Drug Use: never Lives independently: No Household members: spouse Marital status: Current occupational status: employed Sexually active: Yes Do you think of yourself as: Straight/Heterosexual Current gender identity: Male Hospital Course Hospital Course During the hospitalization, the patient had routine laboratory studies which were within normal limits except for a few outliers. Additionally, there was a general medical evaluation which was also within normal limits and revealed no new acute processes. At the time of discharge, lethality was denied and psychosis was resolving. Mood and anxiety were well managed. The patient endorsed a plan to avoid all drugs of abuse and follow up with the aftercare recommendations of the treatment team. The patient was evaluated and deemed to be absent credible lethality and had achieved the maximum benefit from an inpatient hospitalization, and so was discharged. Patient was started on Cymbalta to target depression and anxiety and seroquel was continued adjunctively to target depression. Gabapentin was initiated to target anxiety and sciatica. Involuntary Hold Information 96 Hour Hold: 96 Hour Involuntary Admission: Yes Mental Status Exam MSE Comments: This is an obese white male in hospital scrubs with adequate grooming and eye contact. He had an antalgic gait and apparent attempt to protect his hip and appeared in some mild to moderate distress while walking. There was evidence of mild psychomotor retardation. There was no other evidence of any abnormal involuntary motor movements tics or tremors appreciated. Speech was normal in regards to rate rhythm and prosody. His mood was described as I feel fine I do not really know why I am here. His affect was slightly subdued but mood congruent. He denied any suicidal or homicidal ideation. There were no delusions reported or noted, he denied any auditory or visual hallucinations. Denied any suicidal thoughts or intentions, even when feeling stressed and overwhelmed. Denied making any threats towards others. Reported feeling anxious and stressed, particularly about vehicle issues and upcoming surgery. Denied being in a deep depression. Mentioned stress related to vehicle issues, upcoming hip surgery, and interactions with law enforcement. Reported feeling frustrated and aggravated. His attention span appeared fair and his recent and remote memory were grossly intact but memory was likely unreliable at some level purposely, but neither were formally tested. He was alert and oriented to person place time and situation. His insight and judgment appear poor versus him being disingenuous about his understanding of the events that led to him being here. His impulse control appeared limited versus impaired based on the events that led to hospitalization. Discharge Data Studies Completed and Pending: Laboratory Results WBC 11.74 10^3/uL (3. 29-11.43) H 05/12/24 22: RBC 4.79 10^6/uL (3.8 5-5.65) 05/12/24 22:01 Hgb 15.80 g/dL (11.27 -16.99) 05/12/24 22:01 Hct 47.2 % (37-53) 05/12/24 22:01 MCV 98.5 fl (82-101) 05/12/24 22: MCH 33.0 pg (27-33) 05/12/24 22:01 MCHC 33.5 g/dL (30-55) 05/12/24 22:01 RDW 14.1 % (12.1-15.1 ) 05/12/24 22: Plt Count 304 10^3/cmm (157 -399) 05/12/24 22:01 MPV 9.2 fL (7.4-10.4) 05/12/24 22: Neut % (Auto) 70.3 % 05/12/24 22: Lymph % (Auto) 19.0 % 05/12/24 22: Bremer % (Auto) 6.5 % 05/12/24 22: Eos % (Auto) 2.2 % 05/12/24 22:01 Baso % (Auto) 0.9 % 05/12/24 22: Neut # (Auto) 8.26 10^3/uL (1.8 -7.7) H 05/12/24 22: Lymph # (Auto) 2.2 10^3/uL (0.8- 4.8) 05/12/24 22:01 Bremer # (Auto) 0.8 10^3/uL (0.2- 0.9) 05/12/24 22: Eos # (Auto) 0.3 10^3/uL (0.0- 0.8) 05/12/24 22:01 Baso # (Auto) 0.1 10^3/uL (0.0- 0.1) 05/12/24 22: Nucleated RBC % (a uto) 0 % 05/12/24 22: Nucleated RBCs # 0.0 /100WBC 05/12/24 22:01 Sodium 137 mmol/L (136-1 45) 05/12/24 22: Potassium 3.2 mmol/L (3.5-5 .1) L 05/12/24 22: Chloride 101 mmol/L (98-10 7) 05/12/24 22: Carbon Dioxide 15 mmol/L (22-29) L 05/12/24 22:01 Anion Gap 24.2 (5-19) H 05/12/24 22: BUN 6 mg/dL (6-20) 05/12/24 22:01 Creatinine 1.1 mg/dL (0.7-1. 2) 05/12/24 22: GFR Calculation 71.1 mL/min (90-1 30) L 05/12/24 22:01 Glucose 125 mg/dL (65-115 ) H 05/12/24 22:01 Calculated Osmolal ity 283 mOsm/kg (285- 295) L 05/12/24 22: Calcium 9.3 mg/dL (8.5-10 .5) 05/12/24 22: Total Bilirubin 0.5 mg/dL (0.15-1 .2) 05/12/24 22: AST 100 U/L (0-40) H 05/12/24 22: ALT 69 U/L (0-41) H 05/12/24 22: Alkaline Phosphata se 151 U/L (40-130) H 05/12/24 22:01 Total Protein 8.4 g/dL (6.6-8.7 ) 05/12/24 22: Albumin 4.3 g/dL (3.5-5.2 ) 05/12/24 22: Globulin 4.1 g/dL (1.3-4.6 ) 05/12/24 22: TSH 5.00 uIU/mL (0.27 -4.20) H 05/12/24 22:01 Urine Color Yellow (Yellow) 05/13/24 16:20 Urine Appearance Clear (CLEAR) 05/13/24 16:20 Urine pH 6.5 (5-7) 05/13/24 16:20 Ur Specific Gravit y 1.013 (1.005-1.0 30) 05/13/24 16:20 Urine Protein Negative (Negati ve) 05/13/24 16:20 Urine Glucose (UA) Negative (Normal ) 05/13/24 16:20 Urine Ketones Trace (Negative) 05/13/24 16:20 Urine Blood Negative (Negati ve) 05/13/24 16:20 Urine Nitrate Negative (Negati ve) 05/13/24 16:20 Urine Bilirubin Negative (Negati ve) 05/13/24 16:20 Urine Urobilinogen 1.0 mg/dL (Negati ve) 05/13/24 16:20 Ur Leukocyte Isaura ase Negative (Negati ve) 05/13/24 16:20 Urine RBC Rare /hpf (0-2) 05/13/24 16:20 Urine WBC None /hpf (0-5) 05/13/24 16:20 Ur Squamous Epith Cells None /hpf (0-5) 05/13/24 16:20 Amorphous Sediment Not Reportable 05/13/24 16:20 Urine Bacteria None /hpf (NONE) 05/13/24 16:20 Urine Mucus None /hpf 05/13/24 16:20 Salicylates < 0.3 mg/dL (3-10 ) L 05/12/24 22:01 Urine Opiates Scre en Negative ng/mL (N egative) 05/13/24 16:20 Acetaminophen < 5.0 ug/mL (10-3 0) L 05/12/24 22:01 Ur Barbiturates Sc reen Negative ng/mL (N egative) 05/13/24 16:20 Ur Phencyclidine S crn Negative ng/mL (N egative) 05/13/24 16:20 Ur Amphetamines Sc reen Negative ng/mL (N egative) 05/13/24 16:20 U Benzodiazepines Scrn Positive ng/mL (N egative) H 05/13/24 16:20 Urine Cocaine Scre en Negative ng/mL (N egative) 05/13/24 16:20 U Marijuana (THC) Screen Positive ng/mL (N egative) H 05/13/24 16:20 Ethyl Alcohol 65 mg/dL (0-10) H 05/12/24 22:01 Vitals: Last Vital Signs Temp 97.8 F 05/15/24 06:00 Pulse 79 05/15/24 06:00 Resp 20 H 05/15/24 06:00 BP 137/87 05/15/24 06:00 Pulse Ox 98 05/15/24 06:00 O2 Del Method Room Air 05/15/24 06:00 Discharge Plan Discharge Patient Disposition: Home Condition: Stable Prescriptions: New thiamine mononitrate (vit B1) [Vitamin B-1 (mononitrate)] 100 mg Tablet 100 mg PO DAILY 30 Days Qty: 30 1RF pantoprazole 40 mg Tablet,Delayed Release (Dr/Ec) 40 mg PO DAILY 30 Days Qty: 30 1RF Discharge Orders: Discharge Order (Routine); Ordered 05/15/24 Ordered By: Christophe Fernandez Referrals: [facility] [Outside] Juliano Wyatt FNP [Primary Care Provider] - Discharge Diet: Regular Discharge Activity: Resume usual activity Patient Instructions: Opioid Safety Discharge Attestations NPU Time Spent in Discharge Care*: less than 30 min Specific Discharge Activities: Specific discharge activities: educating patient, discussing with case preparer and liner/social workers/dc planners, documenting/other paperwork and evaluating patient/reviewing data Status at Discharge: Cognitive status at discharge: cognitively intact , Behavioral status at discharge: cooperative , Coding Level of Care Code Acute Code for Chg Fwd Diagnoses Major depressive disorder, single episode, severe F32.2 Pain disorder associated with psychological and physical factors F45.42 Alcohol use Z78.9 Essential hypertension I10 Fracture of hip S72.002A Encounter type: initial encounter Fracture type: closed Laterality: left Marital/partner relational problem Z63.0
[2024-05-15 14:10] VITALS: BP 137/87; PULSE 79; RESP 20; TEMP 36.6; O2SAT 98
[2024-05-15 14:16] VITALS: BP 137/87; PULSE 79; RESP 20; TEMP 36.6; O2SAT 98
== END 2024-05-15 15:16 | disposition home or self-care (01) | DRG 885 ==
LOC: ER 23:20 → NP 05-13 07:39
PROVIDERS: Admitting Provider Psychiatry & Neurology Psychiatry; Emergency Provider Emergency Medicine; PCP Registered Nurse; Visit Provider Psychiatry & Neurology Psychiatry
DX: F32.2 Major depressive disorder, single episode, severe without psychotic features (principal); G47.33 Obstructive sleep apnea (adult) (pediatric); G47.00 Insomnia, unspecified; M16.12 Unilateral primary osteoarthritis, left hip; G89.29 Other chronic pain; M54.42 Lumbago with sciatica, left side; I10 Essential (primary) hypertension; F17.210 Nicotine dependence, cigarettes, uncomplicated; E66.9 Obesity, unspecified; Z68.32 Body mass index [BMI] 32.0-32.9, adult; F82 Specific developmental disorder of motor function; F45.42 Pain disorder with related psychological factors; F10.10 Alcohol abuse, uncomplicated; Z63.0 Problems in relationship with spouse or partner
CPT/HCPCS: 80053; 80306; 80307; 81001; 84443; 85025; 93005; 96372; 97150; 97165; 99285; J2060; J3486

== ENCOUNTER → 2024-05-19 15:35 | Outpatient (BNVA) | payer BC, SELFPAY | PROVIDERS: PCP Registered Nurse; Visit Provider Registered Nurse | DX: I10 Essential (primary) hypertension (principal); Z02.83 Encounter for blood-alcohol and blood-drug test | CPT/HCPCS: 80053; 80307; 85025 ==

== ENCOUNTER 2024-06-04 12:16 | Observation (INO) | payer BC, MEDICAID, SELFPAY ==
[2024-06-04] VITALS (29 sets, daily range): BP systolic 93–128; BP diastolic 54–94; PULSE 66–104; RESP 10–28; TEMP 36.1–36.9; O2SAT 94–100; BMI 31.9
[2024-06-04] MEDS: sodium chloride 0.9% 1,000 ML 30 ML IV (06:41)
[2024-06-04] MEDS: acetaminophen 1,000 MG/100 ML PIGGYBACK 400 MG IV ×3 (06:42→21:18)
[2024-06-04] MEDS: gabapentin 300 mg Capsule PO (06:45)
[2024-06-04] MEDS: CELEcoxib 200 mg Capsule 400 MG PO (06:45)
--- NOTE | 2024-06-04 07:05 | P.HPUD_ITS ---
Surgery/Procedure H&P Update DATE OF PROCEDURE: June 04, 2024 DATE H&P PERFORMED: 05/08/24 H&P UPDATE INFORMATION: I have reviewed H&P completed within last 30 days, I have examined patient prior to procedure, No changes to prior documentation and H&P is in [facility] EMR on date indicated PREOP DIAGNOSIS: Avascular necrosis right hip PLANNED PROCEDURE: Operation Date: 06/04/24 08:10 Proposed Procedures p Total Hip Arthroplasty(Right) - Jessica Murdock MD Related Problem List Diagnoses (1) Avascular necrosis of right femoral head:
--- NOTE | 2024-06-04 08:15 | ANES.PREANE2 ---
Pre-Anesthetic Assessment Height/Weight: Height 5 ft 11 in Weight 229 lb Temp Pulse Resp BP Pulse Ox O2 Del Method 97.0 F L 91 18 121/81 98 Room Air 06/04/24 06:32 06/04/24 06:32 06/04/24 06:32 06/04/24 06:32 06/04/24 06:32 06/04/24 06:33 Preop Diagnosis: Avascular necrosis right hip Operation Date: 06/04/24 08:10 Proposed Procedures p Total Hip Arthroplasty(Right) - Jessica Murdock MD Was Beta Jamal taken within 24 hours: N/A Was Clonidine taken within 24 hours: N/A Last intake: Intake Last Liquid Date 06/04/24 Last Liquid Time 00:15 Last Solid Date 06/03/24 Last Solid Time 18:30 Social Alcohol and Tobacco Exam alert, oriented x 3, clear to auscultation bilaterally and regular rate & rhythm Airway Submandibular: within normal limits Cervical ROM: within normal limits Mallampati: Class III Dentition: full Anesthetic Plan ASA status: 3 Anesthesia: General Other: Patient states that after his prior orthopedic surgery his tongue was numb for over a month. Grade i view with mac 3.5 at that time NPO since yesterday evening History of GERD, controlled with Protonix Hypertension on amlodipine Patient was recently admitted to a psychiatric unit for an acute manic episode in April Severe MDD noted Chronic smoker Recent labs reviewed and acceptable for procedure Plan for GETA Medications/Allergies Home Medications ?Medication ?Instructions ?Recorded ?Confirmed ?Last Taken ?Type thiamine mononitrate (vit B1) 100 100 mg PO DAILY 30 days #30 tabs 05/15/24 06/01/24 06/02/24 19:00 Rx mg tablet (Vitamin B-1 (mononitrate)) amlodipine 10 mg tablet See Rx Instructions .Route 05/19/24 06/03/24 06/02/24 13:00 Rx .COMPLEX #90 tabs pantoprazole 40 mg tablet,delayed 40 mg PO DAILY 90 days #90 tabs 05/19/24 06/03/24 06/02/24 13:00 Rx release Allergies Allergy/AdvReac Type Severity Reaction Status Date / Time codeine Allergy Severe shortness Verified 06/04/24 06:26 of breath avocado Allergy Unknown Verified 06/04/24 06:26 banana Allergy Unknown Verified 06/04/24 06:26 Current Medications Generic Name Dose Route Start Last Admin Trade Name Freq PRN Reason Stop Dose Admin Sodium Chloride 1,000 mls @ 30 mls/hr 06/04/24 06:30 06/04/24 06:41 Sodium Chloride 0.9% IV 06/05/24 06:29 30 mls/hr .Q24H ROSANGELA Administration PFSH Anesthesia Medical History Psychiatric care Arthralgia of right elbow Obstructive sleep apnea Insomnia Hypersomnia Elevated d-dimer Osteoarthritis of left hip Chronic low back pain with left-sided sciatica Closed subcapital fracture of femur HTN (hypertension) Depression Surgical History H/O removal of cyst left arm S/P ORIF (open reduction internal fixation) fracture DOS 02/12/23 - Open reduction internal fixation left subcapital hip fracture utilizing cannulated screws x 3. Family History Grandfather CAD (coronary artery disease) Father Cancer Lung disease copd Sister Lung disease asthma Denies family history of Diabetes Chronic kidney disease (CKD) Hypertension Stroke Social History Smoking and tobacco/nicotine status: current every day tobacco/nicotine user Alcohol intake: current Alcohol intake frequency: few times a month Alcohol type: beer Substance/Drug Use: never Lives independently: No Household members: spouse Marital status: Current occupational status: employed Sexually active: Yes Do you think of yourself as: Straight/Heterosexual Current gender identity: Male Data Anesthesia Cardiac Studies: Echocardiogram 11/09/23 Sestamibi Stress Test (Cardiology) 01/30/24
[2024-06-04] MEDS: ceFAZolin 2,000 mg SDV 2000 MG IVP ×2 (09:33→18:05)
[2024-06-04] MEDS: ceFAZolin 1,000 mg SDV 1000 MG (09:47)
[2024-06-04] MEDS: tranexamic acid 1,000 mg/10mL SDV 1000 MG IV (09:48)
[2024-06-04] MEDS: BUPivacaine 0.5% INJ 30 mL 20 ML XX (10:21)
[2024-06-04] MEDS: BUPivacaine liposome 13.3 mg/mL SDV 20 mL 266 MG INFILTRATI (10:21)
[2024-06-04] MEDS: ceFAZolin 1,000 mg SDV 1000 MG IRRIGATION (10:22)
[2024-06-04] MEDS: VANCOMYCIN ADD-Vantage 1,000 MG VIAL 1000 MG XX (10:22)
--- NOTE | 2024-06-04 12:28 | XR_ITS ---
WS: [id number] Pelvis, AP view, 06/04/2024 Clinical Data: S/P USHA Comparison: Pelvis and right hip, 04/15/2024 Findings: The bilateral hip arthroplasties are in good position. No periprosthetic fractures or loosening is seen. The adjacent pelvis and soft tissues are not remarkable. XR/XR pelvis 1-2V* [id number] Impression: Bilateral hip arthroplasties.
--- NOTE | 2024-06-04 12:32 | P.OP_ITS ---
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 A size 8 Accolade II 127? neck angle hip stem with a size 28 mm x +4 mm femoral head and a buddhism MDM X3 insert size 46F Specimens removed/disposition: Femoral head disposed of Pathology: None Surgeon: Jessica Murdock MD Boarding Mother: Lydia Khanna, nurse practitioner certified medical technician assistant were required for positioning, manipulation of the leg during the surgical procedure, retraction, and completion of the surgical procedure. Anesthesia: General (Intubated, ASA 3) Estimated blood loss (mL): 150 IV fluids (mL): 1,400 Urine output (mL): 200 Complications: None Findings: Hip was stable at 90 degrees of flexion with 70 degrees of internal rotation and 20 degrees of adduction. There was severe deformity of the femoral head. Condition: stable Disposition: PACU (Then to floor for postoperative rehabilitation and pain management) Brief History: This 48-year-old gentleman presented initially with a fracture in the opposite left hip. He has recently undergone left total hip arthroplasty after developing avascular necrosis secondary to a subcapital hip fracture. Imaging demonstrated that the right hip also was affected with avascular necrosis, and he had gone on to collapse of the femoral head with significant deformity and loss of cartilage on the femoral head and in the acetabulum. After discussion with the patient, he wished to proceed with total hip arthroplasties as his activities of daily living were severely limited. As noted, he is doing well following left total hip arthroplasty, and today he presents for right total hip arthroplasty. Risks and complications were discussed with him. Consents were signed and questions were answered. Procedure: Patient was brought to the operating theater.? He was transferred to the operating room table and subsequently administered a general anesthesia intubated, ASA 3.? Following administration of adequate anesthesia, the patient was placed in full lateral position and held in position with a pegboard.? The patient's right lower extremity was then prepped and draped in usual fashion utilizing DuraPrep.? It was draped free.? Following prepping and draping, a surgical pause was performed.? At the time of surgical pause, we identified the site and side of surgery.? We also identified the patient and preoperative surgical markings.? Additionally, leg lengths were marked after draping.? Confirmation was made of equipment availability.? The patient's preoperative IV antibiotics, Ancef 2 g and TXA administration was confirmed as well.? X-rays were also reviewed. Following the surgical pause, an incision was made centering over the patient's greater trochanter continuing proximally and distally as necessary to allow access to the hip joint.? Dissection continued through skin and soft tissues using a scalpel, and hemostasis was obtained using electrocautery. The tensor fascia dimitri was identified and incised longitudinally, and the tensor fascia dimitri was noted to be very tight. Exposure was difficult secondary to this. The sciatic nerve was identified and protected throughout the surgical procedure.? A Charnley U retractor was placed after the tensor fascia dimitri had been incised longitudinally, and the sciatic nerve had been identified.? The hip was in ternally rotated with extreme difficulty, and the piriformis muscle was identified and tagged. Piriformis muscle along with the remaining short external rotators were then incised from the posterior aspect of the hip joint.? These were retracted posteriorly.? The capsule was entered in a T-type fashion with the edges being tagged, and subsequently the hip was dislocated.? There was severe degenerative osteoarthritis with deformity of the femoral head. Following hip dislocation, a femoral neck osteotomy was accomplished in the appropriate position.? The head was measured, but it was quite deformed.? We then evaluated the acetabulum. The femur was retracted anteriorly.? Soft tissues were retracted, and the labrum was removed.? We then began reaming.? Once the femoral head was removed, there was noted to be significant loss of cartilage over the head with the previously noted deformity and within the acetabulum.? We reamed to a size 55 mm to allow for a size 56 mm acetabular shell.? The acetabulum was impacted into position. The cup was stable. The MDM liner was then impacted into position with care being taken to assure it seated appropriately.? It was noted that the acetabulum matched the bony anatomy.? The cup was noted to seat nicely and had good fixation upon impact. Attention was directed to the proximal femur.? The proximal femur was lifted out of the wound.? A canal finder was passed after the box chisel. We then began broaching. We broached sequentially and had excellent fit and fill with the size 8 broach. ? A trial reduction was attempted with a +0 mm femoral head.? Subsequently, we changed to a +4 mm femoral head. With this construct, the hip was stable, and leg length was felt to be equal.? With this in place, we had the above stabilities.? This was felt to be excellent stability. Therefore, trial components were removed after the hip was dislocated.? The size 8 Accolade II 127? neck angle stem was impacted into position without difficulty and onto this was placed a +4 mm x 28 mm femoral head which had been assembled into the MDM insert size 46F.? With a +4 mm femoral head, we had the above-noted stability.? The stem was noted to seat nicely prior to placement of the femoral head.? The wound was copiously irrigated with 20 mL of Betadine and 500 mL of normal saline mixed together.? Subsequently, we suctioned this out and irrigated the wound copiously with lactated Ringer's.? At this time, with all components in appropriate position, the hip was reduced.? Following reduction of the prosthesis once again, we confirmed the stability of the hip.? Leg lengths were also felt to be satisfactory. Being satisfied with the prosthesis, attention was directed to closure.? Closure was accomplished with 0 Vicryl in the capsular tissues.? Piriformis was reattached with 0 Vicryl as well.? Tensor fascia dimitri was closed with 0 Vicryl in an interrupted fashion.? The subcutaneous tissues were closed with a combination of 0 Vicryl and 2-0 STRATAFIX. Vancomycin powder and a Gelfoam thrombin mixture was placed into the wound as well.? The skin was closed with 3- 0 STRATAFIX followed by OpSite.? The patient was placed in an abduction pillow.? He was returned the Recovery Room in a satisfactory condition and will be discharged to the floor for postoperative rehabilitation and pain management.? There were no complications, and specimens were sent as above. Related Problem List Diagnoses (1) Avascular necrosis of right femoral head:
[2024-06-04] MEDS: fentaNYL 50 mcg/mL INJ 2mL IVP ×2 (12:45→12:59)
--- NOTE | 2024-06-04 13:20 | ANE.PACU2 ---
Inpatient post-anesthesia follow up: Airway intact: Yes Vital signs: Temperature 98.1 F Pulse Rate 86 Respiratory Rate 16 Blood Pressure 161/81 Pulse Oximetry 96 Oxygen Delivery Me thod Room Air Oxygen Flow Rate 2 Fraction of Inspir ed Oxygen Hydration adequate: Yes Nausea and vomiting: No Pain level: 1 Mental status: Baseline
[2024-06-04] MEDS: CELEcoxib 200 mg Capsule PO (14:28)
[2024-06-04] MEDS: oxyCODONE 5 mg IR Tab/Cap 10 MG PO ×3 (14:28→22:34)
[2024-06-04] MEDS: mupirocin oint 22 gm 1 APPLIC NASAL (18:05)
[2024-06-04] MEDS: chlorhexidine gluconate 0.12% Btl 473 mL 30 ML MUCOUS MEM ×2 (18:06→21:23)
[2024-06-04] MEDS: iron polysaccharide complex 150 mg Capsule PO (18:06)
[2024-06-04] MEDS: calcium carbonate 500 mg Chew Tablet 1000 MG PO (18:06)
[2024-06-04] MEDS: tranexamic acid 1,000 MG/100 ML PREMIX 600 MG IV (18:18)
[2024-06-04] MEDS: zolpidem 5 mg Tablet PO (21:35)
[2024-06-05] VITALS (8 sets, daily range): BP systolic 112–161; BP diastolic 72–81; PULSE 84–95; RESP 16–20; TEMP 36.4–36.7; O2SAT 94–97
[2024-06-05] MEDS: ceFAZolin 2,000 mg SDV 2000 MG IVP ×2 (01:00→08:57)
[2024-06-05] MEDS: CELEcoxib 200 mg Capsule PO ×2 (01:00→13:44)
[2024-06-05] MEDS: oxyCODONE 5 mg IR Tab/Cap 10 MG PO ×3 (02:25→12:16)
[2024-06-05] MEDS: acetaminophen 1,000 MG/100 ML PIGGYBACK 400 MG IV (05:19)
[2024-06-05 05:49] LABS: Basophils % 0.3 %; Hematocrit 36.2 % (37-53); Lymphocytes # 1.3 10^3/uL (0.8-4.8); Lymphocytes % 10.7 %; Mean Corpuscular HGB Conc 33.7 g/dL (30-55); Mean Corpuscular Hemoglobin 33.7 pg (27-33); Mean Platelet Volume 10.8 fL (7.4-10.4); Monocytes # 0.8 10^3/uL (0.2-0.9); Monocytes % 6.9 %; Neutrophils % 81.2 %; Nucleated Red Blood Cells % 0 %; Platelet Count 144 10^3/cmm (157-399); Red Blood Count 3.62 10^6/uL (3.85-5.65); Red Cell Distribution Width 14.2 % (12.1-15.1); White Blood Count 11.94 10^3/uL (3.29-11.43)
[2024-06-05 06:16] LABS: Anion Gap 14.3 (5-19); Blood Urea Nitrogen 9 mg/dL (6-20); Calcium 8.5 mg/dL (8.5-10.5); Carbon Dioxide 22 mmol/L (22-29); Chloride 102 mmol/L (98-107); Creatinine Clr Calc Pharmacy 125.1587; Glomerular Filtration Rate 89.7 mL/min (90-130); Glucose 112 mg/dL (65-115); Osmolality Calculated 277 mOsm/kg (285-295); Potassium 4.3 mmol/L (3.5-5.1); Sodium 134 mmol/L (136-145)
[2024-06-05] MEDS: multivitamin therapeutic Tablet 1 TAB PO (08:57)
[2024-06-05] MEDS: aspirin 325 mg EC Tablet PO (08:57)
[2024-06-05] MEDS: iron polysaccharide complex 150 mg Capsule PO (08:57)
[2024-06-05] MEDS: cholecalciferol (vitamin D3) 1,000 unit Tablet 1000 UNIT PO (08:57)
[2024-06-05] MEDS: chlorhexidine gluconate 0.12% Btl 473 mL 30 ML MUCOUS MEM ×2 (08:58→12:17)
[2024-06-05] MEDS: calcium carbonate 500 mg Chew Tablet 1000 MG PO (08:58)
[2024-06-05] MEDS: mupirocin oint 22 gm 1 APPLIC NASAL (08:58)
--- NOTE | 2024-06-05 12:04 | PC.OT ---
Pt seen for OT evaluation and is A+Ox3 and is able to name 3/3 posterior hip precautions. Pt states that he has his ADL kit from his previous hip surgery and is educated on how to use it. Pt declines to perform ADLs or functional mobility at this time. Will attempt again at later time.
[2024-06-05] MEDS: acetaminophen 500 mg Tablet 1000 MG PO (13:44)
--- NOTE | 2024-06-05 14:12 | PM.DCS ---
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 A size 8 Accolade II 127? neck angle hip stem with a size 28 mm x +4 mm femoral head and a adventist MDM X3 insert size 46F (2) Avascular necrosis of right femoral head: Status: Acute Reason for Visit Reason for Visit: M16.11 Brief History: This 48-year-old gentleman presented initially with a fracture in the opposite left hip. He has recently undergone left total hip arthroplasty after developing avascular necrosis secondary to a subcapital hip fracture. Imaging demonstrated that the right hip also was affected with avascular necrosis, and he had gone on to collapse of the femoral head with significant deformity and loss of cartilage on the femoral head and in the acetabulum. After discussion with the patient, he wished to proceed with total hip arthroplasties as his activities of daily living were severely limited. As noted, he is doing well following left total hip arthroplasty, and today he presents for right total hip arthroplasty. Risks and complications were discussed with him. Consents were signed and questions were answered. Hospital Course Hospital Course This 48-year-old gentleman was admitted under observation status overnight following same-day total hip arthroplasty. Patient was status post left total hip arthroplasty and underwent right total hip arthroplasty on the day of admission to observation. The procedure was well-tolerated. There were no complications. On the first postoperative day, the patient was seen in his room. He was with family and was comfortable and anticipating discharge home. Patient understands home exercise program. He is felt safe for discharge. Physical Exam Const: COMMON NORMALS: no acute distress, average body habitus, patient oriented x3 and alert GENERAL APPEARANCE: cooperative and comfortable ORIENTATION/CONSCIOUSNESS: Yes awake HENMT: COMMON NORMALS: normocephalic and atraumatic HEAD & SCALP: normocephalic and atraumatic Eye: GENERAL EYE: appearance normal, both eyes and all related structures Chest: COMMONS NORMALS: normal inspection of the chest Resp: COMMON NORMALS: normal respiratory effort EFFORT & INSPECTION: Yes able to speak in complete sentences and Yes symmetric chest movement Extremity: RIGHT LOWER EXTREMITY: Yes hip joint (Dressing is dry and intact.) Right hip: Yes inspection (No significant ecchymosis), Yes ROM (Not evaluated) and Yes neurovascular exam (Intact distally with no evidence of DVT) Neuro: COMMON NORMALS: patient oriented x3 SENSORIUM/ORIENTATION: Yes alert Psych: COMMON NORMALS: mental status grossly normal APPEARANCE: Yes grossly normal ATTITUDE: Yes calm and Yes engaged ATTENTION/CONCENTRATION: Yes attention grossly intact Skin: COMMON NORMALS: no rashes or lesions noted GENERAL SKIN EXAM: no rashes or lesions noted Urinary Catheter Management: Salazar: Cath Placed During This Visit: yes, but has since been removed by the nurse Reason for Continuing Indwelling Catheter: Decision to DC Catheter Urinary Catheter Date of Insertion: 06/04/24 Urinary Catheter Time of Insertion: 09:53 Date Urinary Catheter Removed: 06/04/24 Time Urinary Catheter Discontinued: 15:25 Discharge Data Studies Completed and Pending Completed Studies During Hospitalization Category Date Time Status XR pelvis 1-2V* 14200 Routine Exams 06/04/24 12:28 Completed Radiology Impressions Pelvis X-Ray 06/04/24 12:28 Impression: Bilateral hip arthroplasties. Laboratory Results WBC 11.94 10^3/uL (3.29-11.43) H 06/05/24 04:28 RBC 3.62 10^6/uL (3.85-5.65) L 06/05/24 04:28 Hgb 12.20 g/dL (11.27-16.99) 06/05/24 04:28 Hct 36.2 % (37-53) L 06/05/24 04:28 MCV 100.0 fl (82-101) 06/05/24 04:28 MCH 33.7 pg (27-33) H 06/05/24 04:28 MCHC 33.7 g/dL (30-55) 06/05/24 04:28 RDW 14.2 % (12.1-15.1) 06/05/24 04:28 Plt Count 144 10^3/cmm (157-399) L 06/05/24 04:28 MPV 10.8 fL (7.4-10.4) H 06/05/24 04:28 Neut % (Auto) 81.2 % 06/05/24 04:28 Lymph % (Auto) 10.7 % 06/05/24 04:28 [place] % (Auto) 6.9 % 06/05/24 04:28 Eos % (Auto) 0.0 % 06/05/24 04:28 Baso % (Auto) 0.3 % 06/05/24 04:28 Neut # (Auto) 9.70 10^3/uL (1.8-7.7) H 06/05/24 04:28 Lymph # (Auto) 1.3 10^3/uL (0.8-4.8) 06/05/24 04:28 [place] # (Auto) 0.8 10^3/uL (0.2-0.9) 06/05/24 04:28 Eos # (Auto) 0.0 10^3/uL (0.0-0.8) 06/05/24 04:28 Baso # (Auto) 0.0 10^3/uL (0.0-0.1) 06/05/24 04:28 Nucleated RBC % (auto) 0 % 06/05/24 04:28 Nucleated RBCs # 0.0 /100WBC 06/05/24 04:28 Sodium 134 mmol/L (136-145) L 06/05/24 04:28 Potassium 4.3 mmol/L (3.5-5.1) 06/05/24 04:28 Chloride 102 mmol/L (98-107) 06/05/24 04:28 Carbon Dioxide 22 mmol/L (22-29) 06/05/24 04:28 Anion Gap 14.3 (5-19) 06/05/24 04:28 BUN 9 mg/dL (6-20) 06/05/24 04:28 Creatinine 0.9 mg/dL (0.7-1.2) 06/05/24 04:28 GFR Calculation 89.7 mL/min (90-130) L 06/05/24 04:28 Glucose 112 mg/dL (65-115) 06/05/24 04:28 Calculated Osmolality 277 mOsm/kg (285-295) L 06/05/24 04:28 Calcium 8.5 mg/dL (8.5-10.5) 06/05/24 04:28 Vitals Last Vital Signs Temp 98.0 F 06/05/24 11:22 Pulse 85 06/05/24 11:22 Resp 18 06/05/24 12:16 BP 152/79 06/05/24 11:22 Pulse Ox 97 06/05/24 12:16 O2 Del Method Room Air 06/05/24 11:22 O2 Flow Rate 2 06/05/24 07:33 Discharge Plan Discharge Patient Disposition: Home Condition: Stable Prescriptions: New acetaminophen 500 mg Tablet 1,000 mg PO Q8H 15 Days Qty: 90 0RF aspirin 325 mg Tablet,Delayed Release (Dr/Ec) 325 mg PO DAILY 30 Days Qty: 0 0RF celecoxib 200 mg Capsule 200 mg PO 1XD 30 Days Qty: 30 0RF oxycodone 5 mg Tablet 5 mg PO Q4H PRN (Reason: Moderate To Severe Pain) 7 Days Qty: 40 0RF Continued pantoprazole 40 mg tablet,delayed release (DR/EC) 40 mg PO DAILY 90 Days Qty: 90 1RF amlodipine 10 mg tablet See Rx Instructions .ROUTE .COMPLEX Qty: 90 0RF Dose Instruction: TAKE 1 TABLET BY MOUTH DAILY Rx Instructions: TAKE 1 TABLET BY MOUTH DAILY thiamine mononitrate (vit B1) [Vitamin B-1 (mononitrate)] 100 mg Tablet 100 mg PO DAILY 30 Days Qty: 30 1RF Discharge Orders: Discharge Order (Routine); Ordered 06/05/24 Ordered By: Jessica Murdock Referrals: Jessica Murdock MD [Physician] - 06/19/24 11:30 am Discharge Diet: Advance as tolerated and Usual diet Discharge Activity: Increase activity as tolerated, Limit activity as instructed, Use walker/crutches as instructed and As per PT/OT instructions Patient Instructions: Acetaminophen (By mouth), Aspirin (By mouth), Celecoxib (By mouth) (david Amaya), Oxycodone, Slow Release (By mouth), Acute Wound Care (DC), Precautions after Total Joint Replacement Surgery (DC), Total Hip Replacement (DC), Opioid Safety, Post Anesthesia Care Activity Restrictions/Additional Instructions: Posterior hip precautions. You may weight-bear as tolerated. Gait training, ambulation, and range of motion per physical therapy. You may shower, but do not soak your hip in water. Ice to right hip. Discharge Attestations Time Spent in Discharge Care*: greater than 30 min Specific Discharge Activities: educating patient, documenting/other paperwork and evaluating patient/reviewing data Status at Discharge: Cognitive status at discharge: cognitively intact, Behavioral status at discharge: cooperative, Quality Metrics Clinical Quality Measures [ No reported AMI, CVA or VTE this stay] Coding Level of Care Code Acute Code for Chg Fwd Diagnoses S/P total right hip arthroplasty Z96.641 Avascular necrosis of right femoral head M87.051
== END 2024-06-05 14:41 | disposition home or self-care (01) ==
LOC: MEDSURG 12:18
PROVIDERS: Admitting Provider Specialist; PCP Registered Nurse; Visit Provider Specialist
PROC: (CPT 27130; principal; 2024-06-04 08:10)
DX: M87.051 Idiopathic aseptic necrosis of right femur (principal); M87.851 Other osteonecrosis, right femur; J44.9 Chronic obstructive pulmonary disease, unspecified; I10 Essential (primary) hypertension; Z96.642 Presence of left artificial hip joint; K21.9 Gastro-esophageal reflux disease without esophagitis; F17.200 Nicotine dependence, unspecified, uncomplicated; G47.33 Obstructive sleep apnea (adult) (pediatric)
CPT/HCPCS: 27130; 36415; 51702; 72170; 80048; 85025; 97110; 97116; 97161; A4216; C1776; C9290; G0378; J0131; J0330; J0690; J1100; J1171; J2250; J2371; J2405; J2704; J2710; J3010; J3370; J3490; J7030; J9999

== ENCOUNTER → 2024-06-19 11:29 | Outpatient (BNVA) | payer BC, MEDICAID, SELFPAY | PROVIDERS: PCP Registered Nurse; Visit Provider Nurse Practitioner | DX: Z98.890 Other specified postprocedural states (principal); Z96.641 Presence of right artificial hip joint | CPT/HCPCS: 73502 ==

== ENCOUNTER → 2024-07-29 15:24 | Outpatient (BNVA) | payer BC, MEDICAID, SELFPAY | PROVIDERS: PCP Registered Nurse; Visit Provider Specialist | DX: Z98.890 Other specified postprocedural states (principal); Z96.641 Presence of right artificial hip joint; Z96.642 Presence of left artificial hip joint | CPT/HCPCS: 73502 ==

== ENCOUNTER → 2024-12-01 09:22 | Outpatient (BNVA) | payer BC, MEDICAID, SELFPAY | PROVIDERS: PCP Registered Nurse; Visit Provider Orthopaedic Surgery | DX: M47.816 Spondylosis without myelopathy or radiculopathy, lumbar region (principal); G89.29 Other chronic pain | CPT/HCPCS: 72110 ==

== ENCOUNTER → 2024-12-02 14:21 | Outpatient (BNVA) | payer BC, MEDICAID, SELFPAY | PROVIDERS: PCP Registered Nurse; Visit Provider Specialist | DX: Z47.89 Encounter for other orthopedic aftercare (principal); Z96.642 Presence of left artificial hip joint; Z96.641 Presence of right artificial hip joint | CPT/HCPCS: 73523 ==